=== PATIENT | male | born 1965 | race Caucasian/White ===

== ENCOUNTER 2020-04-20 08:30 | Outpatient (RCR) | payer OTHER, SELFPAY ==
--- NOTE | 2020-03-28 10:24 | PTOPEVAL ---
PHYSICAL THERAPY EVALUATION Thank you for referring Everardo Sumner to [facility].? The patient is scheduled to be seen for therapy?2x/week for 4 weeks. Please review, sign, date and return this plan of care GENARO. I agree with and certify that the following plan of care is medically necessary. 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 The patient has had increased back pain since injury and saw MD recently. The MD ordered PT, insurance will not allow for MRI at this time but had one in 2018. Subjective Information The patient reports increased Query Text:As Reported By Patient/ pain at low back and right leg Family numbness most of time. Patient also has occasional left leg numbness. Household activities and yardwork increase symptoms. Patient has had injections but got no relief. Patient's goal is to have less pain with daily activities. Diagnostic Tests X-Rays For This Problem Yes: in 2018 MRI For This Problem Yes: in 2018; showed pinched nerve/herniated disc Other Tests For This Problem No Previous Treatments Previous Treatments For This Problem epidurals, medication Prior Level of Function Activity Level (Last 3 Months) Occupation not working Hand Dominance Ambidextrous Activity of Daily Living Ability Independent Indoor/Home Mobility Independent Community Mobility Independent Stairs Ability Independent Functional Cognition (Planning, Shopping Independent , Taking Medications) Cooking Yes Cleaning Yes Laundry Yes Shopping Yes Driving Yes Medications Home Meds (Include: OTC, RX, Vitamins, atorvastatin, fluticasone, Herbals, Dose, Route,and Frequency) hydrocodone
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
--- NOTE | 2020-04-20 09:21 | PCPTNOTE ---
Admitting Provider: Attending Provider: Ronit Dye, Patient:Everardo Sumner Date of :1965 Patient has not returned for any further treatments since 04/18/2020, therefore (he/she) will be discharged at this time. Patient?s initial visit was on 03/28/2020 08:30 and (he/she) had a total of visits. The goals have been (met, not met, partially met). Thank you for referring this patient to [facility]. Please review, sign, date and return this discharge summary GENARO. I have been updated about the patient's current status and I agree with discharge from the above service at this time. Referring Physician Date
--- NOTE | 2020-04-20 09:22 | PTOPEVAL ---
Thank you for referring Everardo Sumner to [facility].? The patient has been seen for therapy? 6 visits with minimal improvement-see details below. Thank you for your referral. Please review, sign, date and return this plan of care GENARO. I agree with and certify that the following plan of care is medically necessary. Referring Physician Date Attending Provider: Ronit Dye, MD *PT Outpatient D/C Start: 03/28/20 08:05 Freq: Status: Active Protocol: Document 04/20/20 08:39 MLV (Rec: 04/20/20 09:13 MLV [id number]) Therapy Assessment Status Assessment Status Discharge Pain Assessment Timing of Pain Assessment Timing of Pain Assessment Pre-Treatment Pain Scale Pain Scale Used Numeric (1 - 10) Self Report Pain Assessment Lower Back Reported Pain Level 7 Pain Description Aching,Pressure Pain Frequency Chronic Pain Aggravating Factors Exercise/Activity,Prolonged Position,Sitting,Walking Pain Score Pain Score 7: Self Report Interventions Used Interventions Used By Clinicians Electrical Stimulation, Exercise,Heat Pain Relief Interventions Used By Exercise,Heat,Inactivity/Rest Patient Lower Extremity Range of Motion General Lower Extremity Range of Motion Gross Lower Extremity Range of Motion sangita. hip rotation 35 degrees Comments with stiffness Lower Extremity Muscle Strength Testing General Lower Extremity Strength Reason Not Measured WFL/Left,WFL/Right Gross Lower Extremity Strength more consistent response with muscle testing and less signs of pain Muscle Length Testing Muscle Length Testing Piriformis w/Hip Flexion <90 Degrees (R) Moderate Tightness,(L) Moderate Tightness Left Hamstring Length 68 Query Text:(90 - 90 Position) Right Hamstring Length 68 Query Text:(90 - 90 Position) Gastrocnemius Length (R) Mild Tightness,(L) Mild Tightness Muscle Length Testing Comments reports more tightness feeling at right hamstring Palpation Assessment Palpation Palpation chronic tightness remains at lumbar erectors and hip rotators *soreness at sangita. SI joints with deeper palpation Gait Assessment Additional Ambulation Comments continued guarding at initiation of gait with increased hip flexed posture PT Clinical Summary Mr. Sumner is a 54 y/o male seen for physical therap
== END 2020-04-20 14:30 | disposition home or self-care (01) ==
LOC: ANHPT 08:30
PROVIDERS: PCP Family Medicine; Visit Provider Family Medicine
DX: M51.17 Intervertebral disc disorders with radiculopathy, lumbosacral region (principal)
CPT/HCPCS: 97014; 97110; 97162; G0283

== ENCOUNTER 2020-12-16 08:00 | Outpatient (RCR) | payer OTHER, SELFPAY ==
--- NOTE | 2020-11-18 09:37 | PTOPEVAL ---
PHYSICAL THERAPY EVALUATION Thank you for referring Everardo Sumner to [facility].? The patient is scheduled to be seen for therapy?1 x/week for 4 weeks (limited frequency per pt request due to costs). Please review, sign, date and return this plan of care GENARO. * Note: patient did not call for an evaluation until 2 weeks ago due to pain tolerance-per pt I agree with and certify that the following plan of care is medically necessary. Referring Physician Date Attending Provider: Jonathan Broussard *PT Outpatient Evaluation Start: 11/18/20 08:18 Freq: Status: Active Protocol: Document 11/18/20 08:18 MLV (Rec: 11/18/20 09:10 MLV [id number]) Therapy Assessment Status Assessment Status Assessment Status Evaluation Evaluation Information Problem Diagnosis low back pain/sangita. LE radiculopathy; surgical fusion Onset surgery 09/16/20 Cause degenerative in nature; not an injury Additional Evaluation Detail The patient has a long hx with back problems and insurance fought getting an MRI for a long time. The patient tried therapy without success prior to surgery. The patient had surgery on 09/16/20 for lumbar fusion. Since the surgery, the patient reports continued numbness at sangita. LE's with the right leg worse, low back pain which affect all regular daily activities. The patient hasn't worked for a couple years due to his back issues. The patient has help from his neighbors for housework, cooking, driving longer distances. The patient is walking daily for about 1 block with pain limiting further distance. Diagnostic Tests MRI For This Problem Yes: DDD, pinched sciatic nerve Previous Treatments Previous Treatments For This Problem PT prior to surgery w/o relief Pain Assessment Timing of Pain Assessment Timing of Pain Assessment Assessment Pain Scale Pain Scale Used Numeric (1 - 10) Self Report Pain Assessment Bilateral Leg(s) Reported Pain Level 7 Pain Description Numbness,Tingling Pain Frequency Acute,Chronic,Continuous Greatest Pain Intensity 8 Pain Aggravati
--- NOTE | 2020-12-02 11:11 | PCPTNOTE ---
Patient did not show up for scheduled appointment this date. Called patient, no answer, left a message with information regarding next appt time.
--- NOTE | 2020-12-16 16:31 | PTOPEVAL ---
PHYSICAL THERAPY DISCHARGE SUMMARY Thank you for referring Everardo Sumner to [facility].? Jordan has completed 4 visits to therapy for the dx of lumbar surgery/pain. The patient has partially met his goals and progress for skilled needs have peaked. DC PT. Please review, sign, date and return this plan of care GENARO. I agree with and certify the following plan of care. Referring Physician Date Attending Provider: Jonathan Broussard *PT Outpatient Discharge Start: 11/18/20 08:18 Freq: Status: Active Protocol: Document 12/16/20 08:09 MLV (Rec: 12/16/20 08:53 [facility] [id number]) Therapy Assessment Status Assessment Status Assessment Status Discharge Evaluation Information Problem Diagnosis low back pain/sangita. LE radiculopathy; surgical fusion Onset surgery 09/16/20 Cause degenerative in nature; not an injury Additional Evaluation Detail Patient reports soreness today due to stepping in a hole in his yard last week, causing increased soreness, especially the first 3 days. The patient reports his pain has not changed since surgery or therapy intervention. The patient sees the Md in August of 2021 and was told the surgery takes time to heal. The patient feels the exercises currently given work for him but sometimes does not do, due to pain level. The patient reports taking pain meds on schedule which allows him to do a little each day. Pain Assessment Timing of Pain Assessment Timing of Pain Assessment Assessment Pain Scale Pain Scale Used Numeric (1 - 10) Self Report Pain Assessment Bilateral Leg(s) Reported Pain Level 7 Pain Description Aching,Sharp Pain Frequency Acute,Chronic Lower Back Reported Pain Level 8 Pain Description Aching,Pinching,Soreness Pain Frequency Acute,Chronic Pain Score Pain Score 7,8: Self Report Interventions Used Interventions Used By Clinicians Education,Exercise Pain Relief Interventions Used By Exercise,Ice,Medication Patient Cervical and Lumbar ROM Lumbar ROM Lumbar Flexion Active [place] Query Text:Hands to: Lumbar Extension (0-40) 0 Q
== END 2020-12-19 09:26 | disposition home or self-care (01) ==
LOC: ANHPT 08:00
PROVIDERS: PCP Family Medicine
DX: Z98.1 Arthrodesis status (principal)
CPT/HCPCS: 97014; 97110; 97140; 97162; 97530; G0283

== ENCOUNTER 2021-10-01 09:55 | Emergency (ER) | payer OTHER, SELFPAY ==
--- NOTE | ~2021-10-01 | XR_ITS ---
EXAMINATION: XR wrist RT min 3V EXAM DATE: 10/01/2021 11:17 INDICATION: fall, wrist/snuff box tenderness . TECHNIQUE: Right wrist frontal, frontal with ulnar deviation, oblique and lateral projections obtain ed and reviewed. There is no prior study for comparison. FINDINGS: Right wrist scapholunate joint space is maintained. Mild radiocarpal joint primary osteoar thritis. There are no acute fractures or dislocations identified. There is no subcutaneous gas. The soft tissue is unremarkable. There are no radiopaque foreign bodies. There is an old 5th metacarpa l fracture. IMPRESSION: No acute osseous findings. Reviewed, dictated and finalized at location A. IMPRESSION: No acute osseous findings.
--- NOTE | ~2021-10-01 | CT_ITS ---
EXAMINATION: CT lumbar spine wo [facility] EXAM DATE: 10/01/2021 11:29 INDICATION: Fall, back surg, midline pain. TECHNIQUE: Spiral CT lumbar spine was performed without contrast. Axial, coronal and sagittal images of the lumbar spine were reviewed. The dose-length product (DLP) for this examination was 1031.24 mGy -cm. The exposure was tailored according to patient size (auto mA exposure control), and iterative r econstruction (ASIR) was used as additional dose reduction technique. There is no prior study for co mparison. FINDINGS: There are no acute fractures identified. Posterior and interbody fusion L5-S1, with about 9 mm deni listhesis. There is some interbody device subsidence into the L5 endplate. There is no solid bone geena dging identified at the disc space. This subtle lucency surrounding the sacral pedicular screws, prob ably some amount of loosening. No hardware fracture. There is mild lumbar dextroscoliosis. Mild to mo derate L4-5 disc disease, mild at the levels above. Mild to moderate mid and lower lumbar facet arthr opathy. Mild sigmoid diverticulosis. Paraspinal soft tissue is unremarkable. IMPRESSION: 1. No acute lumbar findings. 2. L5-S1 fusion with evidence of S1 pedicular screw loosening and some interbody subsidence into L5, no solid bone bridging at this point. 3. Mild dextroscoliosis. Reviewed, dictated and finalized at location A. IMPRESSION: 1. No acute lumbar findings. 2. L5-S1 fusion with evidence of S1 pedicular screw loosening and some interbo dy subsidence into L5, no solid bone bridging at this point. 3. Mild dextroscoliosis.
[2021-10-01 10:04] VITALS: BP 185/92; PULSE 104; RESP 18; TEMP 36.6; O2SAT 100
--- NOTE | 2021-10-01 10:50 | ED.FALL ---
HPI - Fall General Chief Complaint: Fall <Jia Urbina PA-C - Last Filed: 10/01/21 19:11> Stated Complaint: Fall, Back Pain <TULIO Herrera Last Filed: 10/01/21 19:11> Time Seen by Provider: 10/01/21 10:07 <TULIO Herrera Last Filed: 10/01/21 19:11> Source: patient <TULIO Herrera Last Filed: 10/01/21 19:11> Mode of arrival: ambulatory <TULIO Herrera Last Filed: 10/01/21 19:11> Limitations: no limitations <TULIO Herrera Last Filed: 10/01/21 19:11> History of Present Illness HPI Narrative: Patient is a 56-year-old male who presents the ED with report of low back pain status post fall. Patient reports a history of lumbar spinal fusion surgery last year. He saw his spinal surgeon in July of this year and states he was told one of the screws came loose and he would need repeat surgery. Patient does not want repeat surgery. He does report that he has chronic nerve damage and sciatic pain in his right lower extremity from the surgery. He uses a cane for assistance with ambulation. Today he was walking through his house around 9 am when he developed experienced stabbing right-sided sciatic pain. He states the pain was severe and caused him to fall onto his R side. No head injury or LOC. No prodromal symptoms, CP, SOB, JENSEN, vision changes. He complains of pain to his right wrist and diffuse lower back. Denies any incontinence of bowel or bladder, weakness in his legs, saddle anesthesia, urinary retention, abdominal pain, nausea, vomiting, R hip pain. <TULIO Herrera Last Filed: 10/01/21 19:11> Related Data Allergies/Adverse Reactions: Allergies Allergy/AdvReac Type Severity Reaction Status Date / Time ampicillin AdvReac Unknown Verified 10/01/21 11:08 Penicillins AdvReac Unknown Verified 10/01/21 11:08 <Jia Urbina PA-C - Last Filed: 10/01/21 19:11> Review of Systems Review of Systems: CONSTITUTIONAL: Denies fever, chills. EYES: Denies visual changes. CARDIOVASCULAR: Denies chest pain. RESPIRATORY: Denies dyspnea. GASTROINTESTINAL: Denies abdominal pain, nausea, vomiting, diarrhea, incontinence. GENITOURINARY: Denies incontinence, retention, dysuria or hematuria. MUSCULOSKELETAL: Reports lower back pain and R wrist pain. Denies R hip pain. NEUROLOGIC: Reports numbness in RLE. Denies headache, numbness, or weakness. <Jai Urbina PA-C - Last Filed: 10/01/21 19:11> All systems reviewed & are unremarkable except as noted in HPI and below <Jia Urbina PA-C - Last Filed: 10/01/21 19:11> PMFSH Past Medical History Medical History: Medical History (Updated 10/01/21 @ 12:13 by Jia Urbina PA-C) Chronic lumbar pain Hypertension <Jia Urbina PA-C - Last Filed: 10/01/21 19:11> Surgical History Surgical History: Surgical History (Updated 10/01/21 @ 12:14 by Jia Urbina PA-C) History of lumbar spinal fusion <Jia Urbina PA-C - Last Filed: 10/01/21 19:11> Social History Social History: Social History (Updated 10/01/21 @ 12:14 by Jia Urbina PA-C) Smoking status: Current every day smoker <Jia Urbina PA-C - Last Filed: 10/01/21 19:11> Exam Narrative: GENERAL: Well appearing, well-nourished, non-toxic, in no acute distress. HEAD: Normocephalic, atraumatic. EYES: PERRL/EOMI, conjunctivae clear bilaterally. NECK: Supple. No adenopathy, no masses. No midline spinal tenderness. RESPIRATORY: Airway patent, respirations nonlabored. Clear to auscultation bilaterally, no rales, rhonchi, wheezing. CARDIOVASCULAR: Regular rate and rhythm without murmurs, rubs, or gallops. Peripheral pulses 2+ and equal bilaterally. MUSCULOSKELETAL: Moves all extremities. Strength/ROM intact per baseline without gross deformities. Tenderness to palpation of midline lumbar spine around sacral area and bilateral paraspinous muscles. No tenderness to palpation of cervical or midline spine. Minimal ten
[2021-10-01] MEDS: KETOROLAC (*BKC) 60 MG/2 ML VIAL IM (11:08)
[2021-10-01] MEDS: Please add drug allergy info to patient profile. 1 EACH XX (11:08)
[2021-10-01] MEDS: HYDROcodone/acetaminophen (*CRX) 5-325 MG TABLET 1 TAB PO (12:57)
[2021-10-01 13:31] VITALS: BP 167/86; PULSE 84; RESP 16; O2SAT 97
== END 2021-10-01 13:51 | disposition home or self-care (01) ==
PROVIDERS: Emergency Provider Emergency Medicine
DX: S39.012A Strain of muscle, fascia and tendon of lower back, initial encounter (principal); Z98.1 Arthrodesis status; I10 Essential (primary) hypertension; W19.XXXA Unspecified fall, initial encounter
CPT/HCPCS: 72131; 73110; 96372; 99284; A9270; J1885

== ENCOUNTER 2022-05-22 10:09 | Outpatient (CLI) | payer OTHER, SELFPAY ==
--- NOTE | ~2022-05-22 | XR_ITS ---
XR cervical spine 4-5V DATE: 05/22/2022 10:40 INDICATION: Neck pain. No known injury. TECHNIQUE: AP, open-mouth, lateral, swimmer views COMPARISON: None FINDINGS: There is straightening of the cervical spine which may be due to muscle spasm. There is mil d dextroscoliosis of the cervical spine as well. C1 and C2 are normally aligned and the odontoid process is intact. No fracture or dislocation or lock ed facet or prevertebral soft tissue swelling. Moderately prominent loss of disc space height at C5-6 and C6-7 consistent with degenerative disc dis ease. There is uncovertebral joint spurring at C5-6 and C6-7. IMPRESSION: Moderately prominent degenerative disc disease and uncovertebral joint spurring at C5-6 a nd C6-7 Straightening of cervical spine and mild dextro scoliosis Reviewed, dictated and finalized at location B. SSRS DEVELOPER IMPRESSION: Moderately prominent degenerative disc disease and uncovertebral leah int spurring at C5-6 and C6-7 Straightening of cervical spine and mild dextro scoliosis
--- NOTE | ~2022-05-22 | XR_ITS ---
XR hip RT min 2V 05/22/2022 10:40 Indication: Right hip pain Procedure: 2 views right hip Comparison: No prior studies for comparison. Findings: No fracture, subluxation or dislocation. No significant soft tissue abnormality. No foreign bodies. There is anatomic alignment. Impression: 1: No significant bone or joint abnormality. Reviewed, dictated and finalized at location A. INSPECTOR Impression: 1: No significant bone or joint abnormality.
--- NOTE | ~2022-05-22 | XR_ITS ---
EXAMINATION: XR chest 2V 05/22/2022 10:40 INDICATION: Smoker. History of COPD. PROCEDURE: 2 view chest COMPARISON: No prior studies for comparison. FINDINGS: The lungs are clear. The cardiomediastinal silhouette is within normal limits. There are no pleural effusions. There is no pneumothorax suspected. The lungs are hyperinflated which is cons istent with, but not diagnostic of chronic obstructive pulmonary disease. IMPRESSION: 1: NO ACUTE CARDIOPULMONARY DISEASE. Reviewed, dictated and finalized at location A. CAL RECORDS DIRECTOR
[2022-05-22 11:35] LABS: Hematocrit 43.2 % (42.0-52.0); Hemoglobin 14.4 g/dL (14.0-18.0); Mean Corpuscular HGB Conc 33.3 g/dl (32-36); Mean Corpuscular Hemoglobin 32.5 pg (26-34); Mean Corpuscular Volume 97.5 fl (80-100); Platelet Count Result 392 k/mm3 (150-375); Red Blood Count 4.43 M/mm3 (4.6-6.20); Red Cell Distribution Width 13.2 % (11.5-14.5); White Blood Count 11.9 K/mm3 (4.5-10.0)
[2022-05-22 11:51] LABS: Alanine Aminotransferase 24 U/L (6-50); Albumin Level 4.8 g/dL (3.5-5.1); Alkaline Phosphatase 104 U/L (38-126); Anion Gap 14 mmol/L (8-16); Aspartate Amino Transferase 29 U/L (17-59); Bilirubin,Total 0.9 mg/dL (0.2-1.3); Blood Urea Nitrogen 22 mg/dL (9-20); Calcium 9.4 mg/dL (8.4-10.2); Carbon Dioxide 23 mmol/L (22-30); Chloride 102 mmol/L (98-107); Cholesterol 281 mg/dL (0-200); Estimated Glomerular Filt Rate > 60; Glucose 101 mg/dL (65-110); HDL Direct 60 mg/dL; Potassium 4.4 mmol/L (3.4-5.0); Sodium 139 mmol/L (137-145); Triglycerides 507 mg/dL (<150)
[2022-05-22 11:55] LABS: Rheumatoid Factor < 8.6 IU/ML (<12)
[2022-05-22 12:01] LABS: Hemoglobin A1C 5.3 % (<5.7)
[2022-05-22 12:02] LABS: LDL Cholesterol Direct 95 mg/dL
[2022-05-22 12:07] LABS: Creatinine Urine 173.3 mg/dL; MALB Creatinine Ratio 10.6 mg/g (0-30); Microalbumin Urine Random 18.4 mg/L (0-16.7)
[2022-05-22 12:20] LABS: Vitamin D 25 Hydroxy 18.1 ng/mL
[2022-05-22 12:22] LABS: Prostate Specific Antigen 0.3 ng/mL (< OR = 4.0)
[2022-05-22 12:36] LABS: Hepatitis B Surface Antigen Negative (Negative); Iron 150 ug/dL (49-181); Percent Iron Saturation 36 % (20-50)
[2022-05-22 12:39] LABS: Erythrocyte Sedimentation Rate 19 mm/hr (0-20)
[2022-05-22 12:42] LABS: Free T4 Free Thyroxine 0.96 ng/mL (0.78-2.19); HAV RESULT Negative (Negative); Hepatitis B Core IgM Result Negative (Negative)
[2022-05-22 12:54] LABS: Hepatitis C Virus Antibody Negative (Negative)
[2022-05-22 12:57] LABS: Folic Acid 9.5 ng/mL (2.76->20)
== END 2022-05-22 10:10 | disposition home or self-care (01) ==
LOC: ANHIMG 10:17
PROVIDERS: PCP Emergency Medicine; Visit Provider Emergency Medicine
DX: M25.551 Pain in right hip (principal); M50.322 Other cervical disc degeneration at C5-C6 level; M53.82 Other specified dorsopathies, cervical region; M41.82 Other forms of scoliosis, cervical region
CPT/HCPCS: 36415; 71046; 72050; 73502; 80053; 80061; 80074; 82043; 82306; 82607; 82746; 83036; 83540; 83550; 84153; 84439; 84443; 85027; 85652; 86038; 86430; 87086

== ENCOUNTER 2022-06-06 10:18 | Outpatient (CLI) | payer OTHER, SELFPAY ==
--- NOTE | ~2022-06-06 | DEXA_ITS ---
Bone Density Report Name: SUN CHANG Age: 57 Sex: Male Ethnicity: White Date of : 1965 Indication: height loss; prior fracture; Referring Provider: HIRAM ORTIZ Study: Bone densitometry was performed. Exam Date: June 06, 2022 Accession number: [id number] Bone Density: Region BMD T-score Z-score Classification AP Spine(L1, L2, L3) 0.797 -2.5 -2.0 Osteoporosis Femoral Neck (Left) 0.566 -2.7 -1.8 Osteoporosis Total Hip (Left) 0.763 -1.8 -1.4 Osteopenia Femoral Neck (Right) 0.543 -2.8 -2.0 Osteoporosis Total Hip (Right) 0.723 -2.1 -1.7 Osteopenia Total Hip Mean 0.743 -2.0 -1.6 Osteopenia World Health Organization criteria for BMD impression classify patients as: Normal (T-score at or above -1.0), Osteopenia (T-score between -1.0 and -2.5), or Osteoporosis (T-score at or below -2.5). 10-year Fracture Risk: FRAX not reported because: Some T-score for Spine Total or Hip Total or Femoral Neck at or below -2.5 Clinical Information Provided by Patient: Has had a low trauma fracture Smokes Has 3 or more alcoholic drinks per day Patient maximum height was 72 No regular weight bearing exercise Drinks caffeinated beverages Impression: The patient has established osteoporosis, based on the Right Femoral Neck T-score and the existence of a prior fracture. The patient has risk factors, including: smoking, excessive alcohol use, previous fracture. Discussion: HIGH RISK OF FRACTURE. BONE DENSITY IS UNDESIRABLY LOW AT ONE OR MORE SKELETAL SITES, CONSISTENT WITH OSTEOPOROSIS. This patient's lowest T-score, in a patient who has previously fractured, meets the World Health Organization's (WHO) criteria for severe osteoporosis. In untreated patients, the risk of osteoporotic fracture increases approximately two-fold for each 1.0 SD decrease in T-score. Low bone density is not the only risk factor for fracture; also consider factors such as patient's age, frailty or poor health, risk of falling, risk of injury, previous osteoporotic fracture, family history of osteoporosis, cigarette smoking, low body weight, etc. Not everyone with low bone mineral density has osteoporosis; osteomalacia and other metabolic bone disorders should also be considered. Patients who have osteoporosis should be evaluated for specific diseases and conditions (secondary causes) that may cause or contribute to bone loss. The National Osteoporosis Foundation (NOF) recommends pharmacologic intervention for men with BMD at this level (a T-score of -2.5 or below). The patient should follow a healthful lifestyle (good nutrition with adequate calcium and vitamin D, and appropriate weight-bearing exercise). Follow-Up: Consider repeating this study in 2 years to reassess this patient's status, or sooner if there is some new clinical indication.
== END 2022-06-06 10:19 | disposition home or self-care (01) ==
LOC: ANHIMG 10:20
PROVIDERS: PCP Emergency Medicine; Visit Provider Emergency Medicine
DX: G25.2 Other specified forms of tremor (principal); M81.0 Age-related osteoporosis without current pathological fracture; M85.852 Other specified disorders of bone density and structure, left thigh; M85.851 Other specified disorders of bone density and structure, right thigh
CPT/HCPCS: 77080

== ENCOUNTER 2023-03-04 09:50 | Outpatient (CLI) | payer MEDICARE, MEDICAID, SELFPAY ==
[2023-03-04 11:54] LABS: Hematocrit 48.8 % (42.0-52.0); Hemoglobin 16.5 g/dL (14.0-18.0); Mean Corpuscular HGB Conc 33.8 g/dl (32-36); Mean Corpuscular Hemoglobin 33.3 pg (26-34); Mean Corpuscular Volume 98.6 fl (80-100); Mean Platelet Volume 9.3 fl (7.4-10.4); Platelet Count Result 415 k/mm3 (150-375); Red Blood Count 4.95 M/mm3 (4.6-6.20); Red Cell Distribution Width 13.3 % (11.5-14.5); White Blood Count 14.1 K/mm3 (4.5-10.0)
[2023-03-04 12:01] LABS: Appearance Urine Clear (Clear); Bilirubin Urine Negative (Negative); Blood Urine Negative (Negative); Color Urine Dark Yellow (Yellow); Glucose Urine UA Negative (Negative); Ketones Urine Negative (Negative); Leukocyte Esterase Ur Negative LEU/UL (NEGATIVE); Nitrate Urine Negative (Negative); Protein Urine Negative (Negative); Specific Grav Ur 1.022 (1.001-1.035); Urobilinogen Urine 0.2 mg/dL (<2.0)
[2023-03-04 12:08] LABS: Add Urine Microscopic? NO
[2023-03-04 12:13] LABS: Alanine Aminotransferase 107 U/L (6-50); Albumin Level 4.9 g/dL (3.5-5.1); Alkaline Phosphatase 81 U/L (38-126); Anion Gap 11 mmol/L (8-16); Aspartate Amino Transferase 96 U/L (17-59); Bilirubin,Total 0.9 mg/dL (0.2-1.3); Blood Urea Nitrogen 23 mg/dL (9-20); Calcium 9.6 mg/dL (8.4-10.2); Carbon Dioxide 28 mmol/L (22-30); Chloride 95 mmol/L (98-107); Cholesterol 316 mg/dL (0-200); Estimated Glomerular Filt Rate > 60; Glucose 93 mg/dL (65-110); HDL Direct 44 mg/dL; Potassium 4.5 mmol/L (3.4-5.0); Sodium 134 mmol/L (137-145); Triglycerides 464 mg/dL (<150)
[2023-03-04 12:26] LABS: LDL Cholesterol Direct 182 mg/dL
[2023-03-04 12:34] LABS: Free T4 Free Thyroxine 1.41 ng/mL (0.78-2.19); Vitamin D 25 Hydroxy 43.3 ng/mL
[2023-03-04 12:44] LABS: Prostate Specific Antigen 0.4 ng/mL (< OR = 4.0)
[2023-03-04 13:54] LABS: Hemoglobin A1C 5.4 % (<5.7)
== END 2023-03-04 09:51 | disposition home or self-care (01) ==
PROVIDERS: PCP Emergency Medicine; Visit Provider Emergency Medicine
DX: Z12.5 Encounter for screening for malignant neoplasm of prostate (principal); Z00.00 Encounter for general adult medical examination without abnormal findings; R73.9 Hyperglycemia, unspecified; F41.9 Anxiety disorder, unspecified; M54.50 Low back pain, unspecified; F32.9 Major depressive disorder, single episode, unspecified; I10 Essential (primary) hypertension; E78.5 Hyperlipidemia, unspecified; E55.9 Vitamin D deficiency, unspecified; D72.829 Elevated white blood cell count, unspecified; D75.839 Thrombocytosis, unspecified
CPT/HCPCS: 36415; 80053; 80061; 81003; 82306; 83036; 84153; 84439; 84443; 85027; G0103

== ENCOUNTER 2023-03-23 10:40 | Emergency (ER) | payer MEDICARE, MEDICAID, SELFPAY ==
--- NOTE | ~2023-03-23 | CT_ITS ---
EXAMINATION: CT abdomen pelvis w con INDICATION: Abdominal pain, leukocytosis TECHNIQUE: Computed tomographic images of the abdomen and pelvis were obtained after the administrati on of 100 cc of Omnipaque 350 intravenous contrast. The dose-length product (DLP) was 708.94 mGy-cm. Automated exposure control and iterative reconstruction technique were employed. COMPARISON: 08/17/2016 FINDINGS: Minimal dependent atelectasis is present in the lung bases. The heart size is normal. The l iver is diffusely low in attenuation when compared with the spleen, consistent with hepatic steatosis . Punctate calcifications in an otherwise normal spleen likely represent healed granulomatous disease . The pancreas and adrenal glands are normal. Stones are present in the nondistended gallbladder. No pathologically enlarged abdominal or pelvic lymph nodes are identified. There are no dilated loops of bowel. There is a 2.0 cm intramural abscess of the proximal sigmoid colon with a small adjacent brad sigmoid abscess. There are changes of anterior and posterior fusion procedure at L5-S1. IMPRESSION: 1. 2.0 cm intramural abscess of the proximal sigmoid colon with small adjacent perforation and perisi gmoid abscess. Reviewed, dictated and finalized at location F. IMPRESSION: 1. 2.0 cm intramural abscess of the proximal sigmoid colon with small adjacent perforation and perisigmoid abscess.
[2023-03-23 10:50] VITALS: BP 108/81; PULSE 97; RESP 18; TEMP 36.6; O2SAT 100
[2023-03-23 11:06] LABS: Basophils Absolute Auto 0.1 K/mm3 (0.0-0.1); Basophils Percent Auto 0.7 % (0.2-1.2); Eosinophils Absolute Auto 0.3 K/mm3 (0-0.3); Eosinophils Percent Auto 1.6 % (0-4.4); Hematocrit 46.3 % (42.0-52.0); Hemoglobin 15.7 g/dL (14.0-18.0); Immature Granulocyte Absolute 0.13 K/mm3 (0.00-0.031); Immature Granulocyte Percent A 0.7 % (0-0.5); Lymphocytes Absolute Auto 1.86 K/mm3 (0.9-3.2); Lymphocytes Percent Auto 10.6 % (18.3-44.2); Mean Corpuscular HGB Conc 33.9 g/dl (32-36); Mean Corpuscular Hemoglobin 33.1 pg (26-34); Mean Corpuscular Volume 97.7 fl (80-100); Mean Platelet Volume 8.9 fl (7.4-10.4); Monocytes Absolute Auto 1.1 K/mm3 (0.1-0.6); Neutrophils Percent Auto 80.4 % (45.5-73.1); Platelet Count Result 431 k/mm3 (150-375); Red Blood Count 4.74 M/mm3 (4.6-6.20); Red Cell Distribution Width 12.9 % (11.5-14.5); White Blood Count 17.5 K/mm3 (4.5-10.0)
--- NOTE | 2023-03-23 11:20 | ED.ABDPAIN ---
HPI - Abdominal Pain General Chief Complaint: Abdominal Pain Stated Complaint: stomach problems Time Seen by Provider: 03/23/23 10:50 Source: patient Mode of arrival: ambulatory Limitations: no limitations History of Present Illness HPI narrative: This is a 57 year old male that presents to the ER for abdominal pain present over the last 5 days. Report intermittent lower abdominal pain. Worse with bowel movements. Reports vomiting and diarrhea. Also reports some dysuria. Denies fever or hematochezia. Related Data Allergies Allergy/AdvReac Type Severity Reaction Status Date / Time ampicillin AdvReac Unknown Verified 03/23/23 11:00 Penicillins AdvReac Unknown Verified 03/23/23 11:00 Review of Systems Review of Systems: CONSTITUTIONAL: Denies fever GASTROINTESTINAL: Reports abdominal pain, nausea, vomiting, and diarrhea. GENITOURINARY: Reports dysuria. Denies hematuria. All systems reviewed & are unremarkable except as noted in HPI and below PMFSH Past Medical History Medical History (Updated 03/23/23 @ 13:24 by Lauren Yu PA-C) Chronic lumbar pain Hypertension Surgical History Surgical History (Updated 10/01/21 @ 12:14 by Jia Tipton PA-C) History of lumbar spinal fusion Social History Social History (Updated 03/23/23 @ 11:23 by Lauren Yu PA-C) Smoking status: Current every day smoker Substance use: current Substance use type: marijuana Exam Narrative: GENERAL: Well-appearing, well-nourished, and in no acute distress. HEAD: Normocephalic, atraumatic. EYES: EOMI. ENT: Mucous membranes moist. CHEST: Clear to auscultation. No respiratory distress. No wheezes rales or rhonchi HEART: Regular rate and rhythm. No murmur heard. Normal peripheral pulses. ABDOMEN: Soft, nondistended, normal active bowel sounds. Tender to palpation to the left lower quadrant, without guarding EXTREMITIES: Normal range of motion. No edema. SKIN: Warm, dry, no rash. NEURO: No focal deficits. Alert and oriented x3. PSYCH: Normal mood and affect Course Course Emergency Course: Patient was updated and work-up and my plan of care. Patient reports he cannot stay in the hospital at this time. He has to figure out care for his dog. He does promise he will come back. He will be signing out AMA. He was given the risks of doing so Vital Signs Vital signs: Vital Signs Temperature 98 F 03/23/23 10:50 Pulse Rate 97 03/23/23 10:50 Respiratory Rate 18 03/23/23 10:50 Blood Pressure 108/81 03/23/23 10:50 Pulse Oximetry 100 03/23/23 10:50 Oxygen Delivery Room Air 03/23/23 10:50 Temperature 98 F 03/23/23 10:50 Pulse Rate 97 03/23/23 10:50 Respiratory Rate 18 03/23/23 10:50 Blood Pressure 108/81 03/23/23 10:50 Pulse Oximetry 100 03/23/23 10:50 Oxygen Delivery Room Air 03/23/23 10:50 MDM - Abdominal Pain MDM Narrative Medical decision making narrative: Patient presents to the emergency department for abdominal pain present over the last 5 days. He is afebrile and nontoxic-appearing. CBC with leukocytosis to 17.5. Metabolic panel with mild transaminitis. Lipase is normal. CT scan of the abdomen and pelvis shows a 2 cm intramural abscess of the proximal sigmoid colon with small adjacent perforation and perisigmoid abscess. Patient was updated and work-up and my plan of care (for patient to be admitted for further management). Patient reports he cannot stay in the hospital at this time. He has to figure out care for his dog. He does promise he will come back. He will be signing out AMA. He was given the risks of doing so. I did send antibiotics to the pharmacy in case he does not return Differential Diagnosis Differential diagnosis: Likely abdominal pain, calculus of kidney, constipation and diverticulitis Medical Records Attestation: I reviewed the patient's medical records. Medical records narrative: Reviewed recent outpatient bloodwork Lab [facility]
[2023-03-23 11:28] LABS: Alanine Aminotransferase 69 U/L (6-50); Albumin Level 4.7 g/dL (3.5-5.1); Alkaline Phosphatase 84 U/L (38-126); Anion Gap 10 mmol/L (8-16); Aspartate Amino Transferase 76 U/L (17-59); Bilirubin,Total 0.8 mg/dL (0.2-1.3); Blood Urea Nitrogen 17 mg/dL (9-20); Calcium 9.6 mg/dL (8.4-10.2); Carbon Dioxide 26 mmol/L (22-30); Chloride 100 mmol/L (98-107); Estimated CRCL calculation 63 ml/min; Estimated Glomerular Filt Rate 57; Glucose 141 mg/dL (65-110); Lipase 71 U/L (23-300); Potassium 3.9 mmol/L (3.4-5.0); Sodium 136 mmol/L (137-145)
[2023-03-23] MEDS: ONDANSETRON INJ 4 MG/2 ML VIAL IV PUSH (11:41)
[2023-03-23] MEDS: MORPHINE SULFATE (*CRX) 4 MG/ML INJ IV PUSH (11:41)
[2023-03-23 13:40] LABS: Appearance Urine Clear (Clear); Bilirubin Urine Negative (Negative); Blood Urine Negative (Negative); Color Urine Yellow (Yellow); Glucose Urine UA Negative (Negative); Ketones Urine Negative (Negative); Leukocyte Esterase Ur Negative LEU/UL (Negative); Nitrate Urine Negative (Negative); Protein Urine Negative (Negative); pH Urine 6.5 (5.0-9.0)
[2023-03-23 13:54] LABS: Lactic Acid Reflex 1.9 mmol/L (0.7-2.0)
[2023-03-23 14:01] LABS: Specific Grav Ur 1.059 (1.001-1.035)
[2023-03-23 14:02] LABS: Add Urine Microscopic? NO
[2023-03-23] MEDS: metroNIDAZOLE 500 MG/ISO 100ML 500 MG/100 ML BAG 100 MG IVPB (14:04)
== END 2023-03-23 15:13 | disposition left against medical advice (07) ==
PROVIDERS: Emergency Provider Physician Assistant; PCP Emergency Medicine
DX: K57.20 Diverticulitis of large intestine with perforation and abscess without bleeding (principal); I10 Essential (primary) hypertension; Z98.1 Arthrodesis status; F17.200 Nicotine dependence, unspecified, uncomplicated
CPT/HCPCS: 36415; 74177; 80053; 81003; 83605; 83690; 85025; 87040; 96365; 96367; 96375; 99284; J0696; J1836; J2270; J2405; Q9967

== ENCOUNTER 2023-03-23 17:43 | Inpatient (IN) | payer MEDICARE, MEDICAID, SELFPAY ==
[2023-03-23 17:48] VITALS: BP 100/63; PULSE 98; RESP 20; TEMP 36.7; O2SAT 97
--- NOTE | 2023-03-23 18:12 | ED.GENADULT ---
HPI - General Adult General Chief complaint: Abdominal Pain Stated complaint: diarrhea Time Seen by Provider: 03/23/23 18:00 Source: patient and old records reviewed Mode of arrival: ambulatory Limitations: no limitations History of Present Illness HPI narrative: Patient is a 57-year-old male who presents to the ED with report of diverticulitis. Patient was seen in the ED earlier today and diagnosed with sigmoid diverticulitis with perforation and multiple abscesses. Patient was given a dose of ceftriaxone and Flagyl and it was recommended he be admitted to the hospital. Case was discussed with general surgery. Patient had to take care of his dog and was unable to be admitted at that time. He did sign out AMA but returns now to be admitted. He reports having ongoing pain in his left lower abdomen. Denies nausea currently. Related Data Home Medications Medication Instructions Recorded Confirmed albuterol sulfate 90 mcg/actuation 2 puff inhalation Q4-6H PRN 03/23/23 03/23/23 aerosol inhaler Shortness Of Breath Or Wheezing fenofibrate 40 mg tablet 40 mg PO DAILY 03/23/23 03/23/23 lisinopril 10 mg tablet 20 mg PO DAILY 03/23/23 03/23/23 Allergies Allergy/AdvReac Type Severity Reaction Status Date / Time ampicillin AdvReac Unknown Verified 03/23/23 18:22 Penicillins AdvReac Unknown Verified 03/23/23 18:22 Review of Systems Review of Systems: CONSTITUTIONAL: Denies fever, chills, or sweats. CARDIOVASCULAR: Denies chest pain. RESPIRATORY: Denies dyspnea. GASTROINTESTINAL: See HPI. GENITOURINARY: Denies dysuria or hematuria. SKIN: Denies rash or itching. MUSCULOSKELETAL: Denies back pain, joint pain, or myalgia. All systems reviewed & are unremarkable except as noted in HPI and below PMFSH Past Medical History Medical History Chronic lumbar pain Hypertension Nicotine dependence, cigarettes, with other nicotine-induced disorders Surgical History Surgical History History of lumbar spinal fusion Family History Family History Other Unknown family medical history Social History Social History Smoking packs per day: 1.5 Smoking cigarettes per day: 30.0 Smoking status: Current every day smoker Alcohol intake: current Drinks per week: 70 Substance use: current Substance use type: marijuana Other substance usage details: 3 TIMES PER DAY Lack of Transportation: YES Lack of Food: Sometimes True Current Housing: I Have Housing Concerned About Future Housing: No Difficulty Paying Gas/Electric Bills: YES Difficulty Paying for Meds: No Currently Unemployed: No Education: Grade School Difficulty w/ Childcare or Family Care: No Spiritual care concerns: No Exam Narrative: GENERAL: Well appearing, well-nourished, non-toxic, in no acute distress. HEAD: Normocephalic, atraumatic. NECK: Supple. No adenopathy, no masses. RESPIRATORY: Airway patent, respirations nonlabored. Clear to auscultation bilaterally, no rales, rhonchi, wheezing. CARDIOVASCULAR: Regular rate and rhythm without murmurs, rubs, or gallops. Regular pulses 2+ and equal bilaterally. ABDOMINAL: Soft, focal tenderness in left lower abdomen, no significant rebound. Nondistended, no hepatosplenomegaly. Normoactive BS. MUSCULOSKELETAL: Moves all extremities. Strength/ROM intact without gross deformities. SKIN: Warm, dry, normal color. No rashes. NEURO: A&O X3. Speech clear. Cranial nerves II-XII grossly intact. Steady gait. No ataxic movements. PSYCHIATRIC: Appropriate mood and affect. Normal interaction. Course Vital Signs Vital signs: Vital Signs Temperature 98.1 F 03/23/23 17:48 Pulse Rate 98 03/23/23 17:48 Respiratory Rate 20 03/23/23 17:48 Blood Pressure 100/63 03/23/23 17:48 Pulse
[2023-03-23 18:20] VITALS: BP 91/62; PULSE 94; RESP 16; O2SAT 95
[2023-03-23] MEDS: SODIUM CHLORIDE 0.9% IV 1,000 ML 999 ML IV CONT ×2 (18:27→20:39)
[2023-03-23 19:16] VITALS: BP 99/70; PULSE 95; RESP 17; O2SAT 95
[2023-03-23 19:33] VITALS: BP 103/63; PULSE 92; RESP 20; O2SAT 95
[2023-03-23] MEDS: MEROPENEM 1 GM/NS 100 ML 1 GM/100 ML BAG IVPB (19:40)
[2023-03-23 19:48] LABS: Lactic Acid Reflex 1.3 mmol/L (0.7-2.0)
--- NOTE | 2023-03-23 20:32 | ADMGEN ---
This patient, Everardo Sumner, was admitted to Medical Room 348-01. Patient/family oriented to hospital policies and general routines including ID bracelet, bed and alarms, visiting hours, pain management, procedures, bathroom and other care routines, personal items, smoking policy, room service/diet, and visiting hours. Information on how to activate the Rapid Response Team has been discussed. Patient/Family are encouraged to report perceived risks to care and to ask questions if they do not understand what they are told or what they should do.
[2023-03-23 21:04] VITALS: BP 122/77; PULSE 89; RESP 16; TEMP 36.6; O2SAT 98
--- NOTE | 2023-03-23 21:08 | PM.IMHP ---
H&P: HPI History of Present Illness Date/Time: 03/23/23 21:08 Chief Complaint: patient came to the ER earlier today for evaluation of his abdominal pain for 5 days Narrative: 57 years old white male is complaining of abdominal pain off and on for the last 5 days which is slowly getting worse. As per the patient he is stubborn as a bulll and does not want to go to hospitals so he wanted to wait it out. The pain got worse today to the point that he had to come to the hospital. Workup was done which showed sigmoid diverticulitis with perforation and multiple abscesses on CT scan of the abdomen. Patient was offered admission, but he had to go home to take care of his dog. He came back and was started on IV antibiotics. General surgery was consulted who want to admit the patient for close monitoring and IV anti biotics. Patient was given IV pain meds in the ER with some relief in his symptoms. We are going to admit him to the floor for medical management and close monitoring. Review of Systems Review of Systems: patient denies any chest pain, palpitations, fever rigor chills, blurred vision or falls. All systems reviewed & are unremarkable except as noted in HPI and below PMFSH Past Medical History Medical History (Updated 03/23/23 @ 21:20 by Keanu Bang MD) Chronic lumbar pain Hypertension Nicotine dependence, cigarettes, with other nicotine-induced disorders Surgical History Surgical History History of lumbar spinal fusion Family History Family History Other Unknown family medical history Social History Social History Smoking packs per day: 1.5 Smoking cigarettes per day: 30.0 Smoking status: Current every day smoker Alcohol intake: current Drinks per week: 70 Substance use: current Substance use type: marijuana Other substance usage details: 3 TIMES PER DAY Lack of Transportation: YES Lack of Food: Sometimes True Current Housing: I Have Housing Concerned About Future Housing: No Difficulty Paying Gas/Electric Bills: YES Difficulty Paying for Meds: No Currently Unemployed: No Education: Grade School Difficulty w/ Childcare or Family Care: No Spiritual care concerns: No Meds Home Medications and Allergies Home Medications Medication Instructions Recorded Confirmed Type albuterol sulfate 90 mcg/actuation 2 puff inhalation Q4-6H PRN 03/23/23 03/23/23 History aerosol inhaler Shortness Of Breath Or Wheezing fenofibrate 40 mg tablet 40 mg PO DAILY 03/23/23 03/23/23 History lisinopril 10 mg tablet 20 mg PO DAILY 03/23/23 03/23/23 History Allergies Allergy/AdvReac Type Severity Reaction Status Date / Time ampicillin AdvReac Unknown Verified 03/23/23 18:22 Penicillins AdvReac Unknown Verified 03/23/23 18:22 Vital Signs Vital Signs - 24 hr 03/23/23 17:48 03/23/23 18:20 03/23/23 19:16 Temperature 36.7 C Pulse Rate 98 94 95 Respiratory Rate 20 16 17 Blood Pressure 100/63 91/62 L 99/70 L Pulse Oximetry 97 95 95 Oxygen Delivery Room Air 03/23/23 19:33 03/23/23 20:47 03/23/23 21:04 Temperature 36.6 C Pulse Rate 92 89 Respiratory Rate 20 16 Blood Pressure 103/63 122/77 Pulse Oximetry 95 98 Oxygen Delivery Room Air Exam Narrative: PHYSICAL EXAMINATION: Vital signs: Please see the chart General physical exam: patient lying in bed complaining of pain in the abdomen, appears in no acute distress Head/eyes: Atraumatic, EOMI, PERRLA ENT: Moist mucous membranes, nasal passages clear Neck: Supple, full range of motion, trachea midline CVS: S1 + S2, regular rate and rhythm, no murmurs Respiratory: Bilaterally fair air entry in both lung menard, mild B/L crackles, symmetric chest expansion, no distress Abdomen: Soft, + distended abdomen, + tenderness lower abdominal on palpation, b
[2023-03-23] MEDS: MORPHINE SULFATE (*CRX) 2 MG/ML INJ IV PUSH (22:14)
[2023-03-23] MEDS: SODIUM CHLORIDE 0.9% IV 1,000 ML 100 ML IV CONT (22:17)
[2023-03-23] MEDS: NICOTINE (*PBKC) 21 MG PATCH 1 PATCH TRANSDERM (22:17)
[2023-03-23] MEDS: metroNIDAZOLE 500 MG/ISO 100ML 500 MG/100 ML BAG 100 MG IVPB (22:18)
[2023-03-24] MEDS: MORPHINE SULFATE (*CRX) 2 MG/ML INJ IV PUSH ×5 (02:04→19:38)
[2023-03-24 05:10] VITALS: BP 118/60; PULSE 65; RESP 18; TEMP 36.6; O2SAT 97
[2023-03-24] MEDS: MEROPENEM 1 GM/NS 100 ML 1 GM/100 ML BAG IVPB ×3 (05:48→21:14)
[2023-03-24 05:54] LABS: Basophils Absolute Auto 0.1 K/mm3 (0.0-0.1); Basophils Percent Auto 0.6 % (0.2-1.2); Eosinophils Absolute Auto 0.6 K/mm3 (0-0.3); Eosinophils Percent Auto 4.1 % (0-4.4); Hematocrit 39.8 % (42.0-52.0); Hemoglobin 13.2 g/dL (14.0-18.0); Immature Granulocyte Absolute 0.08 K/mm3 (0.00-0.031); Immature Granulocyte Percent A 0.6 % (0-0.5); Lymphocytes Absolute Auto 2.52 K/mm3 (0.9-3.2); Lymphocytes Percent Auto 18.1 % (18.3-44.2); Mean Corpuscular HGB Conc 33.2 g/dl (32-36); Mean Corpuscular Hemoglobin 32.8 pg (26-34); Monocytes Absolute Auto 1.1 K/mm3 (0.1-0.6); Neutrophils Absolute Auto 9.6 K/mm3 (1.3-6.7); Neutrophils Percent Auto 68.6 % (45.5-73.1); Platelet Count Result 361 k/mm3 (150-375); Red Blood Count 4.02 M/mm3 (4.6-6.20); Red Cell Distribution Width 12.8 % (11.5-14.5); White Blood Count 13.9 K/mm3 (4.5-10.0)
[2023-03-24] MEDS: metroNIDAZOLE 500 MG/ISO 100ML 500 MG/100 ML BAG 100 MG IVPB ×3 (05:55→21:14)
[2023-03-24 06:05] LABS: Anion Gap 4 mmol/L (8-16); Blood Urea Nitrogen 14 mg/dL (9-20); Calcium 8.1 mg/dL (8.4-10.2); Carbon Dioxide 26 mmol/L (22-30); Chloride 106 mmol/L (98-107); Estimated CRCL calculation 74 ml/min; Estimated Glomerular Filt Rate > 60; Glucose 94 mg/dL (65-110); Phosphorus 3.5 mg/dL (2.5-4.5); Potassium 3.7 mmol/L (3.4-5.0); Sodium 136 mmol/L (137-145)
[2023-03-24] MEDS: NICOTINE (*PBKC) 21 MG PATCH 1 PATCH TRANSDERM (08:01)
[2023-03-24] MEDS: lisinopriL 20 MG TABLET PO (08:01)
[2023-03-24 10:13] VITALS: BP 124/66; PULSE 76; O2SAT 95
[2023-03-24] MEDS: SODIUM CHLORIDE 0.9% IV 1,000 ML 100 ML IV CONT ×2 (10:21→21:23)
--- NOTE | 2023-03-24 11:49 | WPDCN ---
Assessment and Plan Assessment and plan (1) Diverticulitis of intestine with perforation and abscess: Qualifiers: Diverticulitis bleeding: without bleeding Diverticulitis site: large intestine Qualified Code(s): K57.20 - Diverticulitis of large intestine with perforation and abscess without bleeding Code(s): K57.80 - Diverticulitis of intestine, part unspecified, with perforation and abscess without bleeding Status: Acute Assessment and Plan: Patient was admitted to the hospital with sigmoid diverticulitis with small intramural abscess of sigmoid colon and small brad colonic abscess and contained focus of free air consistent with microperforation. He is doing better today although still having pain. White blood cell count has decreased and he has been afebrile. Abdominal exam is appropriately tender but no evidence of diffuse peritoneal signs suggestive of need for emergent surgical management. Continue bowel rest for now and IV antibiotics. He likely will resolve with non operative management and avoid surgery. Will follow. HPI Data of Consult Date/Time: 03/24/23 11:49 Requesting Physician: Keanu Bang MD Primary Care Provider: Mesfin Cortes MD Consult Narrative Reason for consult: Acute sigmoid diverticulitis with micro perforation Narrative: Everardo Sumner is a 57 year old male who presented to the emergency room yesterday with complaints of lower abdominal pain for several days. He had episodes of nausea and some emesis at home. He has never had diverticulitis in the past. He did have a colonoscopy performed about 3 years ago for screening purposes and was told he had a couple of benign polyps. He was told he would not need another colonoscopy for 10 years. Workup in emergency room showed a mildly elevated white blood cell count 17,000. This morning is decreased on a 14,000. CT scan abdomen pelvis showed an area of inflammation and mild small perforation with a small focus of free air which is contained in the proximal sigmoid colon. No feculent appearing fluid was noted in the pelvis. No significant free air in the abdomen was noted. Patient was admitted to the floor and started on IV antibiotics and bowel rest. Review of Systems Review of Systems: The remainder of the review of systems to include constitutional, HEENT, cardiovascular, respiratory, GI, , integumentary, musculoskeletal, endocrine, immunologic, hematologic, psychiatric, and neurologic are all negative except for which is mentioned above in the HPI. [facility] Past Medical History Medical History Chronic lumbar pain Hypertension Nicotine dependence, cigarettes, with other nicotine-induced disorders Surgical History Surgical History History of lumbar spinal fusion Family History Family History Other Unknown family medical history Social History Social History Smoking packs per day: 1.5 Smoking cigarettes per day: 30.0 Smoking status: Current every day smoker Alcohol intake: current Drinks per week: 70 Substance use: current Substance use type: marijuana Other substance usage details: 3 TIMES PER DAY Lack of Transportation: YES Lack of Food: Sometimes True Current Housing: I Have Housing Concerned About Future Housing: No Difficulty Paying Gas/Electric Bills: YES Difficulty Paying for Meds: No Currently Unemployed: No Education: Grade School Difficulty w/ Childcare or Family Care: No Spiritual care concerns: No Meds Home Medications and Allergies Home Medications Medication Instructions Recorded Confirmed Type albuterol sulfate 90 mcg/actuation 2 puff inhalation Q4-6H PRN 03/23/23 03/23/23 History aerosol inhaler Shortness Of Breath Or Wheezing
[2023-03-24] MEDS: FENOFIBRATE,MICRONIZED 48 MG TABLET PO (13:17)
--- NOTE | 2023-03-24 13:53 | PM.IMPN ---
Progress Note: A&P Assessment and Plan (1) Diverticulitis of intestine with perforation and abscess: Qualifiers: Diverticulitis bleeding: without bleeding Diverticulitis site: large intestine Qualified Code(s): K57.20 - Diverticulitis of large intestine with perforation and abscess without bleeding Code(s): K57.80 - Diverticulitis of intestine, part unspecified, with perforation and abscess without bleeding Status: Acute Assessment and Plan: Patient has 2 cm intramural abscess of the proximal sigmoid colon with smaller adjacent perforation and perisigmoid abscess Patient was started on IV antibiotics Of meropenem and metronidazole Continue with IV hydration in the form of her normal saline at 100 cc/hour Strict I&Os IV pain meds p.o. p.r.n. as needed General surgery consult was given from ED for evaluation and further management General surgeon recommending conservative management and bowel rest. (2) Alcohol abuse: Code(s): F10.10 - Alcohol abuse, uncomplicated Status: Chronic Assessment and Plan: patient developed alcohol abuse due to chronic back pain. He used to take p.o. P medications they were discontinued approximately 1 year ago. He admits to approximately 10 shots of whiskey daily. CIWA protocol initiated. Ativan p.r.n. with CIWA greater than 8 (3) Hypertension: Code(s): I10 - Essential (primary) hypertension Status: Acute Assessment and Plan: continue lisinopril (4) Nicotine dependence, cigarettes, with other nicotine-induced disorders: Code(s): F17.218 - Nicotine dependence, cigarettes, with other nicotine-induced disorders Status: Chronic Assessment and Plan: nicotine patch p.r.n. (5) COPD (chronic obstructive pulmonary disease): Code(s): J44.9 - Chronic obstructive pulmonary disease, unspecified Status: Chronic Assessment and Plan: stable Subjective Date/time seen: 03/24/23 13:53 Interval history: Patient continues to have left lower quadrant abdominal pain. He denies any nausea, vomiting, hematochezia or melena. He did have diarrhea prior to presenting to ED states since being hospital he has only had 1 bowel movement. Patient was evaluated by General surgery and they are recommending continued bowel rest and IV antibiotics. Exam Narrative: GENERAL: Comfortable, no acute distress HENMT: moist mucous membranes EYES: EOM intact b/l NECK: no lymphadenopathy RESPIRATORY: clear to auscultation CARDIO: RRR GI: soft, Left lower quadrant tenderness to palpation, hyperactive bowel sounds SKIN: no rashes EXTREMITIES: no edema, redness or tenderness Objective Data Vital Signs Vital Signs: Vital Signs - 24 hr 03/23/23 17:48 03/23/23 18:20 03/23/23 19:16 Temperature 98.1 F Pulse Rate 98 94 95 Respiratory Rate 20 16 17 Blood Pressure 100/63 91/62 L 99/70 L Pulse Oximetry 97 95 95 Oxygen Delivery Room Air 03/23/23 19:33 03/23/23 20:47 03/23/23 21:04 Temperature 97.9 F Pulse Rate 92 89 Respiratory Rate 20 16 Blood Pressure 103/63 122/77 Pulse Oximetry 95 98 Oxygen Delivery Room Air 03/24/23 05:10 03/24/23 08:00 03/24/23 10:13 Temperature 97.8 F Pulse Rate 65 76 Respiratory Rate 18 Blood Pressure 118/60 124/66 Pulse Oximetry 97 95 Oxygen Delivery Room Air Intake/Output Intake/Output: Intake & Output 03/21/23 03/22/23 03/23/23 03/24/23 23:59 23:59 23:59 23:59 Intake Total 1205 1200 Output Total 1750 Balance 1205 -550 Meds/Results Medications: Active Medications Generic Name Dose Route Start Last Admin Trade Name Freq PRN Reason Stop Dose Admin Acetaminophen 650 mg 03/23/23 21:22 Acetaminophen 325 Mg Tablet PO Q4H PRN Mild Pain (1-3) or Fever Al Hydrox/Mg Hydrox/Simethicone 30 ml 03/23/23 21:22 Mag Hydrox/Al Hydrox/Simeth 30 Ml Udc PO QID PRN Dyspepsia Albu
[2023-03-24 14:51] VITALS: BP 119/68; PULSE 75; RESP 16; TEMP 36.7; O2SAT 98
[2023-03-24 16:00] VITALS: BP 119/68
[2023-03-24 17:53] LABS: Glucose Point of Care 94 mg/dl (65-105)
[2023-03-24 20:00] VITALS: BP 121/78; PULSE 83; RESP 14; TEMP 35.8; O2SAT 97
[2023-03-25] VITALS: BP 126/64; PULSE 69; RESP 16; TEMP 35.6; O2SAT 99
[2023-03-25] MEDS: MORPHINE SULFATE (*CRX) 4 MG/ML INJ IV PUSH ×2 (00:04→04:34)
[2023-03-25 00:23] LABS: Glucose Point of Care 80 mg/dl (65-105)
[2023-03-25 04:00] VITALS: BP 119/67; PULSE 66; RESP 14; TEMP 35.8; O2SAT 96
[2023-03-25] MEDS: MEROPENEM 1 GM/NS 100 ML 1 GM/100 ML BAG IVPB ×3 (05:00→21:19)
[2023-03-25] MEDS: metroNIDAZOLE 500 MG/ISO 100ML 500 MG/100 ML BAG 100 MG IVPB ×3 (05:12→21:19)
[2023-03-25 06:06] LABS: Basophils Absolute Auto 0.1 K/mm3 (0.0-0.1); Basophils Percent Auto 0.7 % (0.2-1.2); Eosinophils Absolute Auto 0.4 K/mm3 (0-0.3); Eosinophils Percent Auto 2.9 % (0-4.4); Hematocrit 42.6 % (42.0-52.0); Hemoglobin 13.3 g/dL (14.0-18.0); Immature Granulocyte Absolute 0.08 K/mm3 (0.00-0.031); Immature Granulocyte Percent A 0.6 % (0-0.5); Immature Platelet Fraction Pct 2.1 % (0.9-11.2); Lymphocytes Absolute Auto 1.99 K/mm3 (0.9-3.2); Lymphocytes Percent Auto 14.5 % (18.3-44.2); Mean Corpuscular HGB Conc 31.2 g/dl (32-36); Mean Corpuscular Hemoglobin 32.6 pg (26-34); Mean Corpuscular Volume 104.4 fl (80-100); Mean Platelet Volume 9.1 fl (7.4-10.4); Monocytes Absolute Auto 1.1 K/mm3 (0.1-0.6); Neutrophils Percent Auto 73.3 % (45.5-73.1); Platelet Count Result 342 k/mm3 (150-375); Red Blood Count 4.08 M/mm3 (4.6-6.20); Red Cell Distribution Width 12.6 % (11.5-14.5); White Blood Count 13.7 K/mm3 (4.5-10.0)
[2023-03-25 06:13] LABS: Glucose Point of Care 84 mg/dl (65-105)
[2023-03-25 06:19] LABS: Anion Gap 11 mmol/L (8-16); Blood Urea Nitrogen 9 mg/dL (9-20); Calcium 8.4 mg/dL (8.4-10.2); Carbon Dioxide 17 mmol/L (22-30); Chloride 104 mmol/L (98-107); Estimated CRCL calculation 89 ml/min; Estimated Glomerular Filt Rate > 60; Glucose 79 mg/dL (65-110); Sodium 132 mmol/L (137-145)
[2023-03-25 08:00] VITALS: BP 116/70; PULSE 66; RESP 16; TEMP 37.2; O2SAT 97
[2023-03-25] MEDS: FENOFIBRATE,MICRONIZED 48 MG TABLET PO (08:29)
[2023-03-25] MEDS: lisinopriL 20 MG TABLET PO (08:29)
[2023-03-25] MEDS: NICOTINE (*PBKC) 21 MG PATCH 1 PATCH TRANSDERM (08:29)
[2023-03-25] MEDS: THIAMINE HCL 200 MG/2 ML VIAL 100 MG IV PUSH (08:30)
[2023-03-25] MEDS: MORPHINE SULFATE (*CRX) 2 MG/ML INJ IV PUSH (08:31)
[2023-03-25] MEDS: SODIUM CHLORIDE 0.9% IV 1,000 ML 100 ML IV CONT ×2 (10:43→21:19)
[2023-03-25 12:00] VITALS: BP 113/68; PULSE 85; RESP 18; TEMP 36.4; O2SAT 98
[2023-03-25 12:21] LABS: Glucose Point of Care 79 mg/dl (65-105)
--- NOTE | 2023-03-25 13:45 | PM.PNGS ---
Progress Note: A&P Assessment and Plan (1) Diverticulitis of intestine with perforation and abscess: Qualifiers: Diverticulitis bleeding: without bleeding Diverticulitis site: large intestine Qualified Code(s): K57.20 - Diverticulitis of large intestine with perforation and abscess without bleeding Code(s): K57.80 - Diverticulitis of intestine, part unspecified, with perforation and abscess without bleeding Status: Acute Assessment and Plan: CT evidence of sigmoid diverticulitis with small intramural abscess and small pericolonic abscess with contained microperforation. Clinically improving. Continue Meropenem and Flagyl Will start clear liquids and add options for oral analgesics Plan I have discussed the patient's case and plan of care with Dr. Styles. Subjective Subjective Date/Time Seen: 03/25/23 11:45 Patient reports: no new complaints, feels better, pain is less, flatus, bowel movement (Today) and afebrile Interval history: This is a 57-year-old man who was admitted for sigmoid diverticulitis with microperforation and abscess. Chart reviewed. Patient reports significant improvement in his left lower quadrant abdominal pain. Reports his abdominal pain was aggravated with a bowel movement, but he is comfortable this morning. He feels much less tender. He is hungry and eager to try liquids. Exam Const: General: comfortable and no acute distress Orientation/consciousness: patient oriented x3 GI: Inspection: non-distended GI Palp: Yes Soft to palpation, Yes Tenderness to palpation present (GI) (lower abdominal tenderness, mostly in LLQ), Yes Guarding due to palpation present (GI) (LLQ) and No Rebound tenderness present Auscultation: normal bowel sounds Objective Data Vital Signs Vital Signs: Vital Signs - 24 hr 03/24/23 14:51 03/24/23 16:00 03/24/23 20:00 Temperature 98.0 F 96.4 F L Pulse Rate 75 83 Respiratory Rate 16 14 Blood Pressure 119/68 119/68 121/78 Pulse Oximetry 98 97 Oxygen Delivery 03/25/23 00:00 03/25/23 04:00 03/25/23 08:00 Temperature 96.1 F L 96.4 F L 98.9 F Pulse Rate 69 66 66 Respiratory Rate 16 14 16 Blood Pressure 126/64 119/67 116/70 Pulse Oximetry 99 96 97 Oxygen Delivery 03/25/23 08:00 Temperature Pulse Rate Respiratory Rate Blood Pressure Pulse Oximetry Oxygen Delivery Room Air Intake/Output Intake/Output: Intake & Output 03/22/23 03/23/23 03/24/23 03/25/23 23:59 23:59 23:59 23:59 Intake Total 1205 2600 1200 Output Total 1999 575 Balance 1205 600 625 Meds/Results Medications: Active Medications Generic Name Dose Route Start Last Admin Trade Name Freq PRN Reason Stop Dose Admin Acetaminophen 650 mg 03/23/23 21:22 Acetaminophen 325 Mg Tablet PO Q4H PRN Mild Pain (1-3) or Fever Hydrocodone Bitart/Acetaminophen 1 tab 03/25/23 11:00 Hydrocodone/Acetaminophen (*Crx) 5-325 Mg Tablet PO Q4H PRN Pain Rated 4-6 Hydrocodone Bitart/Acetaminophen 1 tab 03/25/23 11:00 Hydrocodone/Acetaminophen (*Crx) 7.5-325 Mg Tablet PO Q4H PRN Pain Rated 7-10 Al Hydrox/Mg Hydrox/Simethicone 30 ml 03/23/23 21:22 Mag Hydrox/Al Hydrox/Simeth 30 Ml Udc PO QID PRN Dyspepsia Albuterol 2 puff 03/23/23 21:26 Albuterol Sulfate (*Sp) Aerosol 1 Puff INHALATION Q4-6H PRN Shortness Of Breath Or Wheezing Dextrose 12.5 gm 03/23/23 21:31 Dextrose 50% 25 Gm/50 Ml Syringe IV PUSH PRN PRN Hypoglycemia Protocol Fenofibrate 48 mg 03/24/23 09:00 03/25/23 08:29 Fenofibrate,Micronized 48 Mg Tablet PO 48 mg QAM JOSE Administration Glucagon 1 mg 03/23/23 21:31 Glucagon For Inj 1 Mg Vial IM PRN PRN Hypoglycemia Protocol Glucose 15 gm 03/23/23 21:31 Glucose Oral Gel 15 Gm Of Glucse In 37.5 Gm Tube PO PRN PRN Hypoglycemia Protocol Meropenem 1 gm in 100 mls @ 200 mls/hr 03/24/23 06:00 10
[2023-03-25] MEDS: HYDROcodone/acetaminophen (*CRX) 7.5-325 MG TABLET 1 TAB PO ×2 (15:26→20:37)
--- NOTE | 2023-03-25 16:18 | PM.IMPN ---
Progress Note: A&P Assessment and Plan (1) Diverticulitis of intestine with perforation and abscess: Qualifiers: Diverticulitis bleeding: without bleeding Diverticulitis site: large intestine Qualified Code(s): K57.20 - Diverticulitis of large intestine with perforation and abscess without bleeding Code(s): K57.80 - Diverticulitis of intestine, part unspecified, with perforation and abscess without bleeding Status: Acute Assessment and Plan: Patient has 2 cm intramural abscess of the proximal sigmoid colon with smaller adjacent perforation and perisigmoid abscess Patient was started on IV antibiotics Of meropenem and metronidazole Continue with IV hydration in the form of her normal saline at 100 cc/hour Strict I&Os IV pain meds p.o. p.r.n. as needed General surgery consult was given from ED for evaluation and further management General surgeon recommending conservative management Advance diet as tolerated starting with clear liquids. (2) Alcohol abuse: Code(s): F10.10 - Alcohol abuse, uncomplicated Status: Chronic Assessment and Plan: patient developed alcohol abuse due to chronic back pain. He used to take p.o. P medications they were discontinued approximately 1 year ago. He admits to approximately 10 shots of whiskey daily. CIWA protocol initiated. Ativan p.r.n. with CIWA greater than 8 (3) Hypertension: Code(s): I10 - Essential (primary) hypertension Status: Acute Assessment and Plan: continue lisinopril (4) Nicotine dependence, cigarettes, with other nicotine-induced disorders: Code(s): F17.218 - Nicotine dependence, cigarettes, with other nicotine-induced disorders Status: Chronic Assessment and Plan: nicotine patch p.r.n. (5) COPD (chronic obstructive pulmonary disease): Code(s): J44.9 - Chronic obstructive pulmonary disease, unspecified Status: Chronic Assessment and Plan: stable Subjective Date/time seen: 03/25/23 16:18 Interval history: Patient needing titer pain control. Patient states that it is not so much that his abdomen is hurting him but rather his back. He has chronic back pain and has had lumbar surgeries. Discussed with him that while we want to control his pain and is also important that IV pain medication is not abused. He is open to doing oral pain medication 1st in using IV pain meds for breakthrough pain. Plan to advance diet starting at clear liquids and advancing to low-fiber. He continues to have diarrhea but denies any melena or hematochezia. No nausea, vomiting, chest pain or shortness of breath Exam Narrative: GENERAL: Comfortable, no acute distress HENMT: moist mucous membranes EYES: EOM intact b/l NECK: no lymphadenopathy RESPIRATORY: clear to auscultation CARDIO: RRR GI: soft, Left lower quadrant tenderness to palpation, hyperactive bowel sounds SKIN: no rashes EXTREMITIES: no edema, redness or tenderness Objective Data Vital Signs Vital Signs: Vital Signs - 24 hr 03/24/23 20:00 03/25/23 00:00 03/25/23 04:00 Temperature 96.4 F L 96.1 F L 96.4 F L Pulse Rate 83 69 66 Respiratory Rate 14 16 14 Blood Pressure 121/78 126/64 119/67 Pulse Oximetry 97 99 96 Oxygen Delivery 03/25/23 08:00 03/25/23 08:00 03/25/23 12:00 Temperature 98.9 F 97.6 F Pulse Rate 66 85 Respiratory Rate 16 18 Blood Pressure 116/70 113/68 Pulse Oximetry 97 98 Oxygen Delivery Room Air Intake/Output Intake/Output: Intake & Output 03/22/23 03/23/23 03/24/23 03/25/23 23:59 23:59 23:59 23:59 Intake Total 1205 2600 1640 Output Total 2000 575 Balance 0778 742 7295 Meds/Results Medications: Active Medications Generic Name Dose Route Start Last Admin Trade Name Freq PRN Reason Stop Dose Admin Acetaminophen 650 mg 03/23/23 21:22 Acetaminophen 325 Mg Tablet PO Q4H PRN Mild Pain (1-3) or Fever Hydr
[2023-03-25 17:41] LABS: Glucose Point of Care 98 mg/dl (65-105)
[2023-03-25 20:00] VITALS: BP 112/66; PULSE 64; RESP 14; TEMP 35.9; O2SAT 96
[2023-03-26 00:07] LABS: Glucose Point of Care 99 mg/dl (65-105)
[2023-03-26] MEDS: HYDROcodone/acetaminophen (*CRX) 7.5-325 MG TABLET 1 TAB PO ×3 (00:33→09:40)
[2023-03-26 04:00] VITALS: BP 129/69; PULSE 64; RESP 14; TEMP 35.6; O2SAT 96
[2023-03-26] MEDS: MEROPENEM 1 GM/NS 100 ML 1 GM/100 ML BAG IVPB ×2 (05:03→13:20)
[2023-03-26] MEDS: metroNIDAZOLE 500 MG/ISO 100ML 500 MG/100 ML BAG 100 MG IVPB ×2 (05:03→14:02)
[2023-03-26 05:58] LABS: Glucose Point of Care 102 mg/dl (65-105)
[2023-03-26 05:59] LABS: Basophils Absolute Auto 0.1 K/mm3 (0.0-0.1); Basophils Percent Auto 0.6 % (0.2-1.2); Eosinophils Absolute Auto 0.5 K/mm3 (0-0.3); Eosinophils Percent Auto 3.8 % (0-4.4); Hematocrit 38.9 % (42.0-52.0); Hemoglobin 13.1 g/dL (14.0-18.0); Immature Granulocyte Absolute 0.05 K/mm3 (0.00-0.031); Immature Granulocyte Percent A 0.4 % (0-0.5); Lymphocytes Absolute Auto 1.97 K/mm3 (0.9-3.2); Lymphocytes Percent Auto 15.2 % (18.3-44.2); Mean Corpuscular HGB Conc 33.7 g/dl (32-36); Neutrophils Absolute Auto 9.3 K/mm3 (1.3-6.7); Platelet Count Result 359 k/mm3 (150-375); Red Blood Count 3.97 M/mm3 (4.6-6.20); Red Cell Distribution Width 12.3 % (11.5-14.5); White Blood Count 12.9 K/mm3 (4.5-10.0)
[2023-03-26 06:07] LABS: Anion Gap 9 mmol/L (8-16); Blood Urea Nitrogen 6 mg/dL (9-20); Calcium 8.7 mg/dL (8.4-10.2); Carbon Dioxide 21 mmol/L (22-30); Chloride 106 mmol/L (98-107); Estimated CRCL calculation 100 ml/min; Estimated Glomerular Filt Rate > 60; Glucose 98 mg/dL (65-110); Potassium 3.5 mmol/L (3.4-5.0); Sodium 136 mmol/L (137-145)
[2023-03-26] MEDS: lisinopriL 20 MG TABLET PO (09:30)
[2023-03-26] MEDS: FENOFIBRATE,MICRONIZED 48 MG TABLET PO (09:30)
[2023-03-26] MEDS: NICOTINE (*PBKC) 21 MG PATCH 1 PATCH TRANSDERM (09:30)
[2023-03-26] MEDS: THIAMINE HCL 200 MG/2 ML VIAL 100 MG IV PUSH (09:31)
--- NOTE | 2023-03-26 12:16 | PC.NURSE ---
Kate and Glucose monitoring discontinued per Sandy Amaya.
--- NOTE | 2023-03-26 13:20 | PM.DS ---
DS: Admitting Diagnosis Discharge Date 03/26/23 Admitting Diagnosis Sigmoid diverticulitis with perforation and abscess DS: Discharge Diagnosis Discharge Diagnosis (1) Diverticulitis of intestine with perforation and abscess: Qualifiers: Diverticulitis bleeding: without bleeding Diverticulitis site: large intestine Qualified Code(s): K57.20 - Diverticulitis of large intestine with perforation and abscess without bleeding Code(s): K57.80 - Diverticulitis of intestine, part unspecified, with perforation and abscess without bleeding Status: Acute (2) Alcohol abuse: Code(s): F10.10 - Alcohol abuse, uncomplicated Status: Chronic (3) Hypertension: Code(s): I10 - Essential (primary) hypertension Status: Acute (4) Nicotine dependence, cigarettes, with other nicotine-induced disorders: Code(s): F17.218 - Nicotine dependence, cigarettes, with other nicotine-induced disorders Status: Chronic (5) COPD (chronic obstructive pulmonary disease): Code(s): J44.9 - Chronic obstructive pulmonary disease, unspecified Status: Chronic DS: Summary Hospital Course Hospital Course: This is a 57-year-old male with a past medical history of hypertension and hypercholesterolemia the presented to the ED on 03/23/2023 due to 5 days of worsening abdominal pain. CT abdomen pelvis showing sigmoid diverticulitis with perforation and multiple abscesses. general surgery consulted. He was started on IV pain meds and fluids as well as IV antibiotics. General surgery decided to do conservative management on the patient with bowel rest. Patient was slowly restarted on a diet starting with clear liquids and advancing to a low-fiber diet. Patient's white count decreased during his stay. Patient was discharged home on p.o. antibiotics. His labs and vital signs stable and he is medically cleared for discharge at this time. Time Spent with Patient Time attestation: Total time spent providing and/or coordinating discharge services: Exam Narrative: GENERAL: Comfortable, no acute distress HENMT: moist mucous membranes EYES: EOM intact b/l NECK: no lymphadenopathy RESPIRATORY: clear to auscultation CARDIO: RRR GI: soft, Left lower quadrant tenderness to palpation, hyperactive bowel sounds SKIN: no rashes EXTREMITIES: no edema, redness or tenderness DS: Data Data Completed and Pending Labs on day of discharge: Labs from last 24 hours 03/26/23 03/26/23 03/26/23 05:47 05:30 00:03 WBC 12.9 H RBC 3.97 L Hgb 13.1 L Hct 38.9 L MCV 98.0 D MCH 33.0 MCHC 33.7 RDW 12.3 Plt Count 359 MPV 9.0 Immature Gran % (Auto) 0.4 Neut % (Auto) 72.0 Lymph % (Auto) 15.2 L [place] % (Auto) 8.0 Eos % (Auto) 3.8 Baso % (Auto) 0.6 Lymph # (Auto) 1.97 [place] # (Auto) 1.0 H Eos # (Auto) 0.5 H Baso # (Auto) 0.1 Abs Immat Gran (auto) 0.05 H Absolute Neuts (auto) 9.3 H Absolute Nucleated RBC 0.0 Nucleated RBC % 0.0 Sodium 136 L Potassium 3.5 Chloride 106 Carbon Dioxide 21 L Anion Gap 9 BUN 6 L Creatinine 0.80 Estim Creat Clear Calc 100 Estimated GFR > 60 Glucose 98 POC Capillary Glucose 102 99 Calcium 8.7 03/25/23 17:36 WBC RBC Hgb Hct MCV MCH MCHC RDW Plt Count MPV Immature Gran % (Auto) Neut % (Auto) Lymph % (Auto) [place] % (Auto) Eos % (Auto) Baso % (Auto) Lymph # (Auto) [place] # (Auto) Eos # (Auto) Baso # (Auto) Abs Immat Gran (auto) Absolute Neuts (auto) Absolute Nucleated RBC Nucleated RBC % Sodium Potassium Chloride Carbon Dioxide Anion Gap BUN Creatinine Estim Creat Clear Calc Estimated GFR Glucose POC Capillary Glucose 98 Calcium Discharge Plan Discharge Attending physician on discharge: Geraldo Tanner Consulting providers: Seun Styles; Keanu Bang; Jia Tipton Discharging Clinician
--- NOTE | 2023-03-26 13:52 | PM.PNGS ---
Progress Note: A&P Assessment and Plan (1) Diverticulitis of intestine with perforation and abscess: Qualifiers: Diverticulitis bleeding: without bleeding Diverticulitis site: large intestine Qualified Code(s): K57.20 - Diverticulitis of large intestine with perforation and abscess without bleeding Code(s): K57.80 - Diverticulitis of intestine, part unspecified, with perforation and abscess without bleeding Status: Acute Assessment and Plan: Patient has improved clinically and is responding to nonoperative management for his diverticulitis and perisigmoid abscess. He has tolerated full liquids and will advance him to a low-fiber diet. If he tolerates a low fiber diet and he can likely be discharged home on oral antibiotics for another 10 days. We will plan on giving him Cipro and Flagyl at home. He should follow his primary care physician. He had a colonoscopy about 3 years ago and he may need another 1 after this episode of diverticulitis. He does not to follow up with general surgery. He should stay on a low-fiber diet for the next 3 to 4 weeks and then switch to a high-fiber diet. He may be discharged home today as per the hospitalist service. Subjective Subjective Date/Time Seen: 03/26/23 13:52 Interval history: Patient feels better today. Much less left lower quadrant abdominal pain. He has had a bowel movement today. Tolerating [place] [id number] and no fever. Exam GI: Other: Abdomen is soft and nondistended. Minimal tenderness to palpation left lower quadrant. No rebound is noted. Objective Data Vital Signs Vital Signs: Vital Signs - 24 hr 03/25/23 20:00 03/26/23 04:00 Temperature 35.9 C L 35.6 C L Pulse Rate 64 64 Respiratory Rate 14 14 Blood Pressure 112/66 129/69 Pulse Oximetry 96 96 Intake/Output Intake/Output: Intake & Output 03/23/23 03/24/23 03/25/23 03/26/23 23:59 23:59 23:59 23:59 Intake Total 1205 2600 4080 620 Output Total 2000 575 3300 Balance 7267 751 8999 -3180 Meds/Results Medications: Active Medications Generic Name Dose Route Start Last Admin Trade Name Freq PRN Reason Stop Dose Admin Acetaminophen 650 mg 03/23/23 21:22 Acetaminophen 325 Mg Tablet PO Q4H PRN Mild Pain (1-3) or Fever Hydrocodone Bitart/Acetaminophen 1 tab 03/25/23 11:00 Hydrocodone/Acetaminophen (*Crx) 5-325 Mg Tablet PO Q4H PRN Pain Rated 4-6 Hydrocodone Bitart/Acetaminophen 1 tab 03/25/23 11:00 03/26/23 09:40 Hydrocodone/Acetaminophen (*Crx) 7.5-325 Mg Tablet PO 1 tab Q4H PRN Administration Pain Rated 7-10 Al Hydrox/Mg Hydrox/Simethicone 30 ml 03/23/23 21:22 Mag Hydrox/Al Hydrox/Simeth 30 Ml Udc PO QID PRN Dyspepsia Albuterol 2 puff 03/23/23 21:26 Albuterol Sulfate (*Sp) Aerosol 1 Puff INHALATION Q4-6H PRN Shortness Of Breath Or Wheezing Dextrose 12.5 gm 03/23/23 21:31 Dextrose 50% 25 Gm/50 Ml Syringe IV PUSH PRN PRN Hypoglycemia Protocol Fenofibrate 48 mg 03/24/23 09:00 03/26/23 09:30 Fenofibrate,Micronized 48 Mg Tablet PO 48 mg QAM JOSE Administration Glucagon 1 mg 03/23/23 21:31 Glucagon For Inj 1 Mg Vial IM PRN PRN Hypoglycemia Protocol Glucose 15 gm 03/23/23 21:31 Glucose Oral Gel 15 Gm Of Glucse In 37.5 Gm Tube PO PRN PRN Hypoglycemia Protocol Meropenem 1 gm in 100 mls @ 200 mls/hr 03/24/23 06:00 03/26/23 13:20 IVPB 200 mls/hr Q8H JOSE Administration Metronidazole 500 mg in 100 mls @ 100 mls/hr 03/23/23 22:00 03/26/23 06:03 Flagyl 500 Mg/Iso Soln 100 Ml IVPB Infused Q8H JOSE Infusion Dextrose 1,000 mls @ 100 mls/hr 03/23/23 21:31 Dextrose 5% 1,000 Ml IVPB PRN PRN Hypoglycemia Protocol Lisinopril 20 mg 03/24/23 09:00 03/26/23 09:30 Lisinopril 20 Mg Tablet PO 20 mg DAILY JOSE Administration Lorazepam 2 mg
[2023-03-26 14:00] VITALS: BP 141/81; PULSE 63; RESP 14; TEMP 37; O2SAT 98
== END 2023-03-26 18:10 | disposition home or self-care (01) | DRG 392 ==
LOC: ANHED 18:52 → ANH3MED 19:22
PROVIDERS: Admitting Provider Family Medicine; Emergency Provider Physician Assistant; PCP Emergency Medicine; Visit Provider Internal Medicine Critical Care Medicine
DX: K57.20 Diverticulitis of large intestine with perforation and abscess without bleeding (principal); F10.10 Alcohol abuse, uncomplicated; I10 Essential (primary) hypertension; J44.9 Chronic obstructive pulmonary disease, unspecified; E78.00 Pure hypercholesterolemia, unspecified; F17.210 Nicotine dependence, cigarettes, uncomplicated; M54.50 Low back pain, unspecified; G89.29 Other chronic pain; Z98.1 Arthrodesis status; Z91.199 Patient's noncompliance with other medical treatment and regimen due to unspecified reason
CPT/HCPCS: 36415; 74177; 80048; 80053; 81003; 82948; 83605; 83690; 83735; 84100; 85025; 85055; 87040; 96361; 96365; 96367; 96375; 99284; 99285; A9270; J0696; J1836; J2185; J2270; J2405; J3411; J7030; Q9967

== ENCOUNTER 2023-04-08 08:01 | Outpatient (CLI) | payer MEDICARE, MEDICAID, SELFPAY ==
--- NOTE | ~2023-04-08 | US_ITS ---
Limited Abdominal Sonogram: Real-time sonographic imaging of the right upper quadrant was performed. Clinical History: Abnormal liver enzymes Findings: The liver appears normal with no evidence of mass lesion or bile duct dilatation. Main por roberto vein demonstrates normal direction of flow. The gallbladder is partially distended, and appears n ormal with no evidence of gallstone or definite wall thickening. The common bile duct measures 4 mm. The visualized pancreas, aorta, and IVC are unremarkable. Impression: No significant abnormality seen. Reviewed, dictated and finalized at location M. Impression: No significant abnormality seen.
[2023-04-08 10:38] LABS: Hepatitis B Surface Antigen Negative (Negative)
[2023-04-08 10:44] LABS: HAV RESULT Negative (Negative); Hepatitis B Core IgM Result Negative (Negative)
[2023-04-08 10:56] LABS: Hepatitis C Virus Antibody Negative (Negative)
== END 2023-04-08 08:02 | disposition home or self-care (01) ==
PROVIDERS: PCP Emergency Medicine; Visit Provider Emergency Medicine
DX: R94.5 Abnormal results of liver function studies (principal)
CPT/HCPCS: 36415; 76705; 80074

== ENCOUNTER 2023-04-19 09:13 | Outpatient (CLI) | payer MEDICARE, MEDICAID, SELFPAY ==
[2023-04-19 09:51] LABS: Hematocrit 45.3 % (42.0-52.0); Hemoglobin 14.9 g/dL (14.0-18.0); Mean Corpuscular HGB Conc 32.9 g/dl (32-36); Mean Corpuscular Hemoglobin 31.6 pg (26-34); Mean Corpuscular Volume 96.2 fl (80-100); Mean Platelet Volume 8.7 fl (7.4-10.4); Platelet Count Result 370 k/mm3 (150-375); Red Blood Count 4.71 M/mm3 (4.6-6.20); Red Cell Distribution Width 12.9 % (11.5-14.5); White Blood Count 12.9 K/mm3 (4.5-10.0)
[2023-04-19 10:02] LABS: Alanine Aminotransferase 25 U/L (6-50); Albumin Level 4.6 g/dL (3.5-5.1); Alkaline Phosphatase 50 U/L (38-126); Anion Gap 10 mmol/L (8-16); Aspartate Amino Transferase 31 U/L (17-59); Bilirubin,Total 0.7 mg/dL (0.2-1.3); Blood Urea Nitrogen 17 mg/dL (9-20); Calcium 9.6 mg/dL (8.4-10.2); Carbon Dioxide 19 mmol/L (22-30); Chloride 103 mmol/L (98-107); Estimated Glomerular Filt Rate > 60; Glucose 99 mg/dL (65-110); Potassium 4.4 mmol/L (3.4-5.0); Sodium 132 mmol/L (137-145)
== END 2023-04-19 09:14 | disposition home or self-care (01) ==
LOC: ANHLAB 09:15
PROVIDERS: PCP Emergency Medicine; Visit Provider Emergency Medicine
DX: I10 Essential (primary) hypertension (principal)
CPT/HCPCS: 36415; 80053; 85027

== ENCOUNTER 2023-05-03 09:02 | Outpatient (CLI) | payer MEDICARE, MEDICAID, SELFPAY ==
[2023-05-03 09:45] LABS: Alanine Aminotransferase 20 U/L (6-50); Albumin Level 4.5 g/dL (3.5-5.1); Alkaline Phosphatase 52 U/L (38-126); Anion Gap 9 mmol/L (8-16); Aspartate Amino Transferase 25 U/L (17-59); Bilirubin,Total 0.7 mg/dL (0.2-1.3); Blood Urea Nitrogen 19 mg/dL (9-20); Calcium 9.7 mg/dL (8.4-10.2); Carbon Dioxide 28 mmol/L (22-30); Chloride 99 mmol/L (98-107); Cholesterol 150 mg/dL (0-200); Estimated Glomerular Filt Rate > 60; Glucose 97 mg/dL (65-110); HDL Direct 31 mg/dL; Potassium 4.4 mmol/L (3.4-5.0); Sodium 136 mmol/L (137-145); Triglycerides 145 mg/dL (<150)
[2023-05-03 09:56] LABS: LDL Cholesterol Direct 79 mg/dL
[2023-05-07 07:20] LABS: Lipoprotein A 12 nmol/L (<75)
== END 2023-05-03 09:03 | disposition home or self-care (01) ==
PROVIDERS: PCP Emergency Medicine; Visit Provider Internal Medicine Cardiovascular Disease
DX: E78.1 Pure hyperglyceridemia (principal); R74.8 Abnormal levels of other serum enzymes; M54.9 Dorsalgia, unspecified; F10.10 Alcohol abuse, uncomplicated; E78.5 Hyperlipidemia, unspecified; E78.00 Pure hypercholesterolemia, unspecified; I10 Essential (primary) hypertension; Z13.6 Encounter for screening for cardiovascular disorders
CPT/HCPCS: 36415; 80053; 80061; 83695

== ENCOUNTER 2024-02-17 14:54 | Inpatient (IN) | payer MEDICARE, MEDICAID, SELFPAY ==
--- NOTE | ~2024-02-17 | CT_ITS ---
EXAMINATION: CT abdomen pelvis w con DATE: 02/17/2024 18:19 INDICATION: Abdominal pain. TECHNIQUE: Computed tomography (CT) of the abdomen and pelvis was performed with 100 mL Omnipaque 350 intravenous contrast. Automated exposure control and iterative reconstruction technique were employe d. The dose-length product was 788.57 mGy-cm. COMPARISON: CT abdomen pelvis 03/23/2023 FINDINGS: The visualized portions of the lung bases demonstrate mild atelectasis. Emphysema is noted. No pericardial effusion. The heart size is normal. There are coronary artery calcifications. No brad cardial effusion. There is a small sliding hiatal hernia. Calcifications in the liver and spleen are consistent with old granulomatous disease. There are gallstones in the gallbladder, which is normal i n size. The pancreas, adrenal glands, and left kidney are normal. There is a 3 mm cyst in right kidne y. There are bilateral inguinal hernias containing fat. There are scattered diverticula in the colon. There is wall thickening of the sigmoid colon with surrounding fat stranding, consistent with divert iculitis. The appendix is normal. There are no dilated loops of bowel. There are no pathologically en larged lymph nodes. There is no free intraperitoneal fluid. There is calcified atherosclerosis of the aorta and many of the other arteries. There are changes of anterior and posterior fusion procedures at L5-S1. There is mild thoracic and lumbar spondylosis. IMPRESSION: 1. Acute sigmoid diverticulosis. No perforation or abscess. Reviewed, dictated and finalized at location A.
[2024-02-17 16:25] VITALS: BP 125/74; PULSE 96; RESP 15; TEMP 36.8; O2SAT 97
--- NOTE | 2024-02-17 16:27 | ED.ABDPAIN ---
HPI - Abdominal Pain General Chief Complaint: Abdominal Pain <Lauren Yu PA-C - Last Filed: 02/20/24 09:48> Stated Complaint: abd pain <Lauren Yu PA-C - Last Filed: 02/20/24 09:48> Time Seen by Provider: 02/17/24 16:27 <Lauren Yu PA-C - Last Filed: 02/20/24 09:48> Focused HPI: This is a 58 year old male that presents to the ER for left sided abdominal pain. Ongoing over the last 5 days. Reports associated nausea. Reports history of diverticulitis and that his pain feels similar. Denies fevers. GENERAL: Well-appearing, well-nourished, and in no acute distress. HEAD: Normocephalic, atraumatic. CHEST: Clear to auscultation. ?No respiratory distress. HEART: Regular rate and rhythm.? NEURO: ?Alert and oriented x3. Patient screened in triage and initial orders placed.? ?Additional care and disposition to be based upon?diagnostic testing and treatment. <Lauren Yu PA-C - Last Filed: 02/20/24 09:48> Focused HPI: This is a 58 year old male that presents to the ER for left sided abdominal pain. Ongoing over the last 5 days. Reports associated nausea. Reports history of diverticulitis and that his pain feels similar. Denies fevers. GENERAL: Well-appearing, well-nourished, and in no acute distress. HEAD: Normocephalic, atraumatic. CHEST: Clear to auscultation. ?No respiratory distress. HEART: Regular rate and rhythm.? NEURO: ?Alert and oriented x3. Patient screened in triage and initial orders placed.? ?Additional care and disposition to be based upon?diagnostic testing and treatment. Agree with triage assessment. Patient states that he was admitted 1 year ago for diverticulitis for 5 days. States that the pain has started 5 days ago and has been progressively getting worse. Admits to nausea and vomiting. Denies any fevers or chills at home. <Faisal Beck MD - Last Filed: 02/17/24 20:59> Related Data Home Medications: Home Medications Medication Instructions Recorded Confirmed albuterol sulfate 90 mcg/actuation 2 puff inhalation Q4-6H PRN 03/23/23 02/17/24 aerosol inhaler Shortness Of Breath Or Wheezing lisinopril 10 mg tablet 20 mg PO DAILY 03/23/23 02/17/24 <Lauren Yu PA-C - Last Filed: 02/20/24 09:48> Allergies/Adverse Reactions: Allergies Allergy/AdvReac Type Severity Reaction Status Date / Time ampicillin AdvReac Unknown Verified 02/17/24 14:58 Penicillins AdvReac Unknown Verified 02/17/24 14:58 <Lauren Yu PA-C - Last Filed: 02/20/24 09:48> Review of Systems Review of Systems: All systems are reviewed and are negative unless stated otherwise in the HPI. <Faisal Beck MD - Last Filed: 02/17/24 20:59> PMFSH Past Medical History Medical History: Medical History Chronic lumbar pain Hypertension Nicotine dependence, cigarettes, with other nicotine-induced disorders <Lauren Yu PA-C - Last Filed: 02/20/24 09:48> Surgical History Surgical History: Surgical History History of lumbar spinal fusion <Lauren Yu PA-C - Last Filed: 02/20/24 09:48> Family History Family History: Family History Other Unknown family medical history <Lauren Yu PA-C - Last Filed: 02/20/24 09:48> Social History Social History: Social History Smoking packs per day: 1 Smoking cigarettes per day: 20.0 Smoking status: Current every day smoker Tobacco type: cigarettes Alcohol intake: current Drinks per week: 49 Substance use: current Substance use type: marijuana Other substance usage details: 3 TIMES PER DAY Do You Feel Safe in your Home?: Yes Lack of Transportation: No Lack of Food: Often True Current Housing: I Have Housing Concerned About Future Housing: No Diff
[2024-02-17 16:55] LABS: Basophils Absolute Auto 0.1 K/mm3 (0.0-0.1); Basophils Percent Auto 0.7 % (0.2-1.2); Eosinophils Absolute Auto 0.4 K/mm3 (0-0.3); Eosinophils Percent Auto 2.1 % (0-4.4); Hematocrit 53.1 % (42.0-52.0); Hemoglobin 18.6 g/dL (14.0-18.0); Immature Granulocyte Absolute 0.33 K/mm3 (0.00-0.031); Immature Granulocyte Percent A 1.9 % (0-0.5); Lymphocytes Absolute Auto 2.43 K/mm3 (0.9-3.2); Lymphocytes Percent Auto 14.3 % (18.3-44.2); Mean Corpuscular Hemoglobin 34.3 pg (26-34); Mean Corpuscular Volume 97.8 fl (80-100); Monocytes Absolute Auto 1.5 K/mm3 (0.1-0.6); Monocytes Percent Auto 8.6 % (2.6-8.5); Neutrophils Absolute Auto 12.3 K/mm3 (1.3-6.7); Neutrophils Percent Auto 72.4 % (45.5-73.1); Platelet Count Result 319 k/mm3 (150-375); Red Blood Count 5.43 M/mm3 (4.6-6.20); Red Cell Distribution Width 13.1 % (11.5-14.5)
[2024-02-17 17:01] LABS: Lactic Acid Reflex 1.2 mmol/L (0.7-2.0)
[2024-02-17 17:02] LABS: Alanine Aminotransferase 140 U/L (6-50); Albumin Level 4.6 g/dL (3.5-5.1); Alkaline Phosphatase 73 U/L (38-126); Anion Gap 14 mmol/L (4-12); Aspartate Amino Transferase 77 U/L (17-59); Bilirubin,Total 1.3 mg/dL (0.2-1.3); Blood Urea Nitrogen 21 mg/dL (9-20); Calcium 9.5 mg/dL (8.4-10.2); Carbon Dioxide 23 mmol/L (22-30); Chloride 95 mmol/L (98-107); Estimated CRCL calculation 80 ml/min; Estimated Glomerular Filt Rate > 60; Glucose 107 mg/dL (65-110); Lipase 72 U/L (23-300); Potassium 4.4 mmol/L (3.4-5.0); Sodium 132 mmol/L (137-145)
--- NOTE | 2024-02-17 20:46 | PM.IMHP ---
H&P: HPI History of Present Illness Date/Time: 02/17/24 20:46 Chief Complaint: left lower quadrant Narrative: This is a 58-year-old male with past medical history significant for tobacco dependence, alcohol dependence, COPD/ emphysema, patient smokes a pack of cigarettes daily. Presents to the emergency room due to left lower quadrant pain for several days constipation nausea vomiting poor per orally intake. Patient tried Dulcolax with no relief of symptoms. Denies hematemesis, coffee-ground emesis, bright red blood per rectum, melena, weight loss. Preliminary workup was significant for CT of abdomen and pelvis with sigmoid diverticulitis EXAMINATION: CT abdomen pelvis w con DATE: 02/17/2024 18:19 INDICATION: Abdominal pain. TECHNIQUE: Computed tomography (CT) of the abdomen and pelvis was performed with 100 mL Omnipaque 350 intravenous contrast. Automated exposure control and iterative reconstruction technique were employed. The dose-length product was 788.57 mGy-cm. COMPARISON: CT abdomen pelvis 03/23/2023 FINDINGS: The visualized portions of the lung bases demonstrate mild atelectasis. Emphysema is noted. No pericardial effusion. The heart size is normal. There are coronary artery calcifications. No pericardial effusion. There is a small sliding hiatal hernia. Calcifications in the liver and spleen are consistent with old granulomatous disease. There are gallstones in the gallbladder, which is normal in size. The pancreas, adrenal glands, and left kidney are normal. There is a 3 mm cyst in right kidney. There are bilateral inguinal hernias containing fat. There are scattered diverticula in the colon. There is wall thickening of the sigmoid colon with surrounding fat stranding, consistent with diverticulitis. The appendix is normal. There are no dilated loops of bowel. There are no pathologically enlarged lymph nodes. There is no free intraperitoneal fluid. There is calcified atherosclerosis of the aorta and many of the other arteries. There are changes of anterior and posterior fusion procedures at L5-S1. There is mild thoracic and lumbar spondylosis. IMPRESSION: 1. Acute sigmoid diverticulosis. No perforation or abscess. Review of Systems Review of Systems: left lower quadrant pain, constipation. PMFSH Past Medical History Medical History Chronic lumbar pain Hypertension Nicotine dependence, cigarettes, with other nicotine-induced disorders Surgical History Surgical History History of lumbar spinal fusion Family History Family History Other Unknown family medical history Social History Social History Smoking packs per day: 1 Smoking cigarettes per day: 20.0 Smoking status: Current every day smoker Tobacco type: cigarettes Alcohol intake: current Drinks per week: 49 Substance use: current Substance use type: marijuana Other substance usage details: 3 TIMES PER DAY Do You Feel Safe in your Home?: Yes Lack of Transportation: No Lack of Food: Often True Current Housing: I Have Housing Concerned About Future Housing: No Difficulty Paying Gas/Electric Bills: No Difficulty Paying for Meds: No Currently Unemployed: No Education: Grade School Difficulty w/ Childcare or Family Care: No Spiritual care concerns: No Meds Home Medications and Allergies Home Medications Medication Instructions Recorded Confirmed Type albuterol sulfate 90 mcg/actuation 2 puff inhalation Q4-6H PRN 03/23/23 02/17/24 History aerosol inhaler Shortness Of Breath Or Wheezing lisinopril 10 mg tablet 20 mg PO DAILY 03/23/23 02/17/24 History Allergies Allergy/AdvReac Type Severity Reaction Status Date / Time ampicillin AdvReac Unknown Verified 02/17/24 14:58
[2024-02-17 21:03] VITALS: BP 117/79; PULSE 76; RESP 15; O2SAT 95
--- NOTE | 2024-02-17 21:06 | PC.NURSE ---
pt unable to urinate at this time. pt denying straight cath at this time
[2024-02-17] MEDS: MORPHINE SULFATE (*CRX) 4 MG/ML INJ IV PUSH (21:14)
[2024-02-17] MEDS: SODIUM CHLORIDE 0.9% IV 1,000 ML 999 ML IV CONT (21:14)
[2024-02-17] MEDS: ONDANSETRON INJ 4 MG/2 ML VIAL IV PUSH (21:14)
[2024-02-17] MEDS: metroNIDAZOLE 500 MG/ISO 100ML 500 MG/100 ML BAG 100 MG IVPB (21:14)
[2024-02-17 22:15] VITALS: BP 133/81; PULSE 78; RESP 20; O2SAT 93
--- NOTE | 2024-02-17 22:33 | ADMGEN ---
This patient, Everardo Sumner, was admitted to [facility] Surg Room 314-01. Patient/family oriented to hospital policies and general routines including ID bracelet, bed and alarms, visiting hours, pain management, procedures, bathroom and other care routines, personal items, smoking policy, room service/diet, and visiting hours. Information on how to activate the Rapid Response Team has been discussed. Patient/Family are encouraged to report perceived risks to care and to ask questions if they do not understand what they are told or what they should do.
[2024-02-17 22:35] VITALS: BP 137/88; PULSE 81; RESP 18; TEMP 36.8; O2SAT 95; BMI 26.8
[2024-02-17 22:50] LABS: Add Urine Microscopic? NO; Appearance Urine Clear (Clear); Bilirubin Urine Negative (Negative); Blood Urine Negative (Negative); Color Urine Yellow (Yellow); Glucose Urine UA Negative (Negative); Ketones Urine Negative (Negative); Leukocyte Esterase Ur Negative LEU/UL (Negative); Nitrate Urine Negative (Negative); Protein Urine Negative (Negative); Specific Grav Ur > 1.045 (1.001-1.035)
[2024-02-17] MEDS: NICOTINE (*PBKC) 21 MG PATCH 1 PATCH TRANSDERM (22:58)
[2024-02-17] MEDS: HYDROmorphone HCL INJ (*CRX) 1 MG/ML SYR IV PUSH (23:21)
[2024-02-18] MEDS: HYDROmorphone HCL INJ (*CRX) 1 MG/ML SYR IV PUSH ×7 (02:36→22:48)
[2024-02-18 05:17] VITALS: BP 115/64; PULSE 75; RESP 18; TEMP 36.3; O2SAT 97
[2024-02-18 08:17] VITALS: O2SAT 96
[2024-02-18] MEDS: NICOTINE (*PBKC) 21 MG PATCH 1 PATCH TRANSDERM (09:32)
--- NOTE | 2024-02-18 10:10 | PM.IMPN ---
Progress Note: A&P Assessment and Plan (1) Abdominal pain: Qualifiers: Abdominal location: left lower quadrant Qualified Code(s): R10.32 - Left lower quadrant pain Code(s): R10.9 - Unspecified abdominal pain Status: Acute Assessment and Plan: admit to regular medical floor (2) Sigmoid diverticulitis: Code(s): K57.32 - Diverticulitis of large intestine without perforation or abscess without bleeding Status: Acute (3) Transaminitis: Code(s): R74.01 - Elevation of levels of liver transaminase levels Status: Acute (4) Alcohol abuse: Code(s): F10.10 - Alcohol abuse, uncomplicated Status: Chronic (5) COPD (chronic obstructive pulmonary disease): Code(s): J44.9 - Chronic obstructive pulmonary disease, unspecified Status: Chronic Assessment and Plan: Cont home meds (6) Tobacco dependence: Code(s): F17.200 - Nicotine dependence, unspecified, uncomplicated Status: Acute Plan Diverticulitis/Diverticulosis: -Ordered Metronidazole and Ciprofloxacin (to cover anaerobes + GNR) -Zofran and Phenergan for N/V -Morphine / Dilaudid for pain for severe pain. [place] for moderate pain. -Consulted GI will follow recs and Will need outpatient f/u with GI. -Get colonoscopy 6 weeks after an episode of acute diverticulitis to r/o malignancy even if the patient has a colonoscopy and it?s not been up to ten years. -Trend WBC 17< 15 CT abd/Pelvis : ITS Impressions Abdomen/Pelvis CT 02/17/24 18:27 IMPRESSION: 1. Acute sigmoid diverticulosis. No perforation or abscess. Acute sigmoid diverticulosis. No perforation or abscess.There are scattered diverticula in the colon. There is wall thickening of the sigmoid colon with surrounding fat stranding, consistent with diverticulitis Subjective Date/time seen: 02/18/24 10:10 Interval history: The patient was examined at the bedside and and reports of left lower quadrant pain. Patient reports he was admitted for the same issue last year and was medically managed. Patient reports of undergoing colonoscopy 5 years ago but does not remember the results. During the current admission patient has a WBC of 17 which has been reduced t0 15. Patient is currently started on metronidazole and ciprofloxacin and GI is consulted for continuity of care and if he warrants a colonoscopy in future. Review of Systems Review of Systems: left lower quadrant pain, constipation. Exam Narrative: patient is laying in a stretcher Const: General: comfortable, no acute distress, well developed, alert, awake, ill appearing acutely and average body habitus Nutritional Appearance: average body habitus Orientation/consciousness: patient oriented x3 HENMT: Head: normal to inspection, normocephalic and atraumatic Ears: hearing grossly normal bilaterally Face/Nose/Sinus: normal facial exam Face and sinus: normal facial exam Eyes: General: appearance normal, both eyes and all related structures Pupils: Equal, round and reactive pupils present EOM: EOMs intact bilaterally Neck: Neck: full ROM, no lymphadenopathy and no JVD Thyroid: thyroid normal Lymphatic: no lymphadenopathy noted Resp: Effort & Inspection: normal respiratory effort and able to speak in complete sentences Auscultation: clear to auscultation bilaterally Cardio: Jugular venous distension: no JVD Rate: regular rate Rhythm: regular rhythm Heart sounds: S1 normal heart sound present and S2 normal heart sound present GI: Inspection: distended : General: Yes deferred Skin: Rashes: no rashes Wounds: no wounds Neuro: General: patient oriented x3 and CN's II-XI intact bilaterally Cranial nerves: Yes CN's II-XII intact bilaterally and Yes Equal, round and reactive pupils present Cognition (Neuro): normal cognition Speech: normal speech Gait exam (Neuro): Normal gait present Motor exam (neuro): 5/5 motor strength present throughout
[2024-02-18 10:46] LABS: Hemoglobin 17.8 g/dL (14.0-18.0); Mean Corpuscular HGB Conc 33.6 g/dl (32-36); Mean Corpuscular Hemoglobin 33.7 pg (26-34); Mean Corpuscular Volume 100.4 fl (80-100); Mean Platelet Volume 8.8 fl (7.4-10.4); Platelet Count Result 279 k/mm3 (150-375); Red Blood Count 5.28 M/mm3 (4.6-6.20); Red Cell Distribution Width 13.1 % (11.5-14.5); White Blood Count 15.5 K/mm3 (4.5-10.0)
[2024-02-18 11:11] LABS: Alanine Aminotransferase 132 U/L (6-50); Albumin Level 4.3 g/dL (3.5-5.1); Alkaline Phosphatase 77 U/L (38-126); Anion Gap 11 mmol/L (4-12); Aspartate Amino Transferase 91 U/L (17-59); Bilirubin,Total 1.7 mg/dL (0.2-1.3); Blood Urea Nitrogen 15 mg/dL (9-20); Calcium 9.2 mg/dL (8.4-10.2); Carbon Dioxide 26 mmol/L (22-30); Chloride 97 mmol/L (98-107); Estimated CRCL calculation 88 ml/min; Estimated Glomerular Filt Rate > 60; Glucose 101 mg/dL (65-110); Potassium 4.5 mmol/L (3.4-5.0); Sodium 134 mmol/L (137-145)
[2024-02-18] MEDS: metroNIDAZOLE 500 MG/ISO 100ML 500 MG/100 ML BAG 100 MG IVPB ×2 (12:49→20:06)
[2024-02-18] MEDS: PANTOPRAZOLE SODIUM IV 40 MG VIAL IV PUSH (12:49)
[2024-02-18] MEDS: CIPROFLOXACIN 400 MG/D5W 200ML 200 ML 200 MG IVPB ×2 (12:51→21:45)
[2024-02-18 14:00] VITALS: BP 125/68; PULSE 79; RESP 18; TEMP 36.1; O2SAT 95
[2024-02-18 17:08] LABS: Glucose Point of Care 108 mg/dl (65-105)
[2024-02-18 20:00] VITALS: PULSE 79; RESP 18; O2SAT 93
[2024-02-18 22:00] VITALS: BP 109/89; PULSE 79; RESP 18; TEMP 36.8; O2SAT 93
[2024-02-19] MEDS: HYDROmorphone HCL INJ (*CRX) 1 MG/ML SYR IV PUSH ×8 (01:19→23:34)
[2024-02-19] MEDS: metroNIDAZOLE 500 MG/ISO 100ML 500 MG/100 ML BAG 100 MG IVPB ×2 (05:06→13:17)
[2024-02-19 05:52] VITALS: BP 113/85; PULSE 77; RESP 16; TEMP 36.3; O2SAT 95
[2024-02-19 06:47] LABS: Hematocrit 53.3 % (42.0-52.0); Hemoglobin 18.1 g/dL (14.0-18.0); Mean Corpuscular Hemoglobin 34.5 pg (26-34); Mean Corpuscular Volume 101.5 fl (80-100); Mean Platelet Volume 9.1 fl (7.4-10.4); Platelet Count Result 262 k/mm3 (150-375); Red Blood Count 5.25 M/mm3 (4.6-6.20); White Blood Count 13.6 K/mm3 (4.5-10.0)
[2024-02-19 06:58] LABS: Alanine Aminotransferase 136 U/L (6-50); Albumin Level 4.5 g/dL (3.5-5.1); Alkaline Phosphatase 77 U/L (38-126); Anion Gap 12 mmol/L (4-12); Aspartate Amino Transferase 93 U/L (17-59); Bilirubin,Total 1.6 mg/dL (0.2-1.3); Blood Urea Nitrogen 13 mg/dL (9-20); Calcium 9.1 mg/dL (8.4-10.2); Carbon Dioxide 29 mmol/L (22-30); Chloride 93 mmol/L (98-107); Estimated CRCL calculation 88 ml/min; Estimated Glomerular Filt Rate > 60; Glucose 91 mg/dL (65-110); Potassium 4.2 mmol/L (3.4-5.0); Sodium 134 mmol/L (137-145)
[2024-02-19 08:00] VITALS: PULSE 77; RESP 16; O2SAT 95
--- NOTE | 2024-02-19 08:15 | WPDGICN ---
Assessment and Plan Assessment and plan (1) Transaminitis: Code(s): R74.01 - Elevation of levels of liver transaminase levels Status: Acute (2) Sigmoid diverticulitis: Code(s): K57.32 - Diverticulitis of large intestine without perforation or abscess without bleeding Status: Acute (3) LLQ abdominal pain: Code(s): R10.32 - Left lower quadrant pain Status: Acute (4) Alcohol abuse: Code(s): F10.10 - Alcohol abuse, uncomplicated Status: Chronic (5) Gallstones: Code(s): K80.20 - Calculus of gallbladder without cholecystitis without obstruction Status: Acute (6) Leukocytosis: Code(s): D72.829 - Elevated white blood cell count, unspecified Status: Acute (7) Essential hypertension: Code(s): I10 - Essential (primary) hypertension Status: Acute Plan 1. LLQ Abdominal Pain / Acute Sigmoid Diverticulitis: Admitted with uncomplicated acute sigmoid diverticulitis with no abscess or perforation, WBC was 18 on admission and down trending to WBC 13 this AM. Still reporting 10/10 pain in LLQ and with pain medication, it brings it down to 5/10. He has history March 2023 with sigmoid diverticulitis with small intramural abscess of the sigmoid colon with small abscess and microperforation that resolved medically. He is on Cipro and Flagyl and receiving hydromorphone for pain currently. He appears uncomfortable and abdomen is distended, he is afebrile and no evidence of tachycardia or hypotension. I do believe he needs close monitoring for complications. - Continue IV Cipro and Flagyl - Supportive tx with pain control - He will need outpatient colonoscopy 6-8 weeks after discharge - Keep NPO till pain starts to improve - Consider repeat imaging if WBC worsens or has an acute abdomen - Surgical consult recommended incase patient fails to respond with antibiotics. 2. Chronic Alcohol Use/Elevated Liver Enzymes: Has total bilirubin 1.6, AST 93, ALT 136. Had an abdominal ultrasound 02/2023 with normal appearing liver. Reports drinking alcohol whatever it takes to relieve the pain sometimes related to chronic back pain. He does report feeling sweaty and hot and feeling fevers but he has been a afebrile this admission, consider this related to alcohol detox. -likely acute elevation is secondary to infection along with underlying chronic alcohol abuse. -will rule out other liver etiologies with a complete liver workup -Trend LFTs. -CIWA protocol is recommended -Thiamine and folic acid recommended 3. Gallstones: CT of the abdomen pelvis with gallstones. He is asymptomatic in regards to this. -monitor Thank you very much for allowing me to share in the care of this very nice patient. This report may have been done utilizing a voice recognition system. Attempts have been made to correct errors. However, there may be uncorrected grammatical, spelling, and recognition errors present. GI Consult Note Consult date/time: 02/19/24 08:15 Reason for consult: diverticulitis HPI: This is a pleasant 58 year old male with a past medical surgical history of diverticulitis March 2023 with abscess and microperforation, hypertension, chronic back pain, and surgical history including a lumbar spinal fusion. He presented to the ER on 02/17/2024 with complaints of LLQ abdominal pain. GI consulted for diverticulitis. He was admitted March 2023 with sigmoid diverticulitis with small intramural abscess of the sigmoid colon with small abscess and contained focus of free air consistent with microperforation, this resolved with IV antibiotics and was seen by surgery. This admission he reports left lower quadrant abdominal pain for 5-6 days prior to presenting to the ER. He reports running fevers at home but unable to quantify a temperature. He had some nausea and vomiting with this. Currently he reports the pain is a 10/10 right now and has to have a BM and urinate-he states last
--- NOTE | 2024-02-19 08:25 | WPDGICN ---
GI Consult Note Consult date/time: 02/19/24 08:25 HPI: Everardo Sumner is a 58 year old male PMF Past Medical History Medical History Chronic lumbar pain Hypertension Nicotine dependence, cigarettes, with other nicotine-induced disorders Surgical History Surgical History History of lumbar spinal fusion Family History Family History Other Unknown family medical history Social History Social History Smoking packs per day: 1 Smoking cigarettes per day: 20.0 Smoking status: Current every day smoker Tobacco type: cigarettes Alcohol intake: current Drinks per week: 49 Substance use: current Substance use type: marijuana Other substance usage details: 3 TIMES PER DAY Do You Feel Safe in your Home?: Yes Lack of Transportation: No Lack of Food: Often True Current Housing: I Have Housing Concerned About Future Housing: No Difficulty Paying Gas/Electric Bills: No Difficulty Paying for Meds: No Currently Unemployed: No Education: Grade School Difficulty w/ Childcare or Family Care: No Spiritual care concerns: No Meds Home Medications and Allergies Home Medications Medication Instructions Recorded Confirmed Type albuterol sulfate 90 mcg/actuation 2 puff inhalation Q4-6H PRN 03/23/23 02/17/24 History aerosol inhaler Shortness Of Breath Or Wheezing lisinopril 10 mg tablet 20 mg PO DAILY 03/23/23 02/17/24 History Allergies Allergy/AdvReac Type Severity Reaction Status Date / Time ampicillin AdvReac Unknown Verified 02/17/24 14:58 Penicillins AdvReac Unknown Verified 02/17/24 14:58 Vital Signs Vital Signs - 24 hr 02/18/24 14:00 02/18/24 22:00 02/18/24 20:00 Temperature 96.9 F L 98.3 F Pulse Rate 79 79 79 Respiratory Rate 18 18 18 Blood Pressure 125/68 109/89 Pulse Oximetry 95 93 93 Oxygen Delivery Room Air Fraction of Inspired Oxygen 02/19/24 05:52 Temperature 97.3 F L Pulse Rate 77 Respiratory Rate 16 Blood Pressure 113/85 Pulse Oximetry 95 Oxygen Delivery Fraction of Inspired Oxygen Results Labs 02/19/24 06:08 02/19/24 06:08 Labs: Short CBC 02/18/24 02/19/24 Range/Units 10:37 06:08 WBC 15.5 H 13.6 H (4.5-10.0) K/mm3 Hgb 17.8 18.1 H (14.0-18.0) g/dL Hct 53.0 H 53.3 H (42.0-52.0) % Plt Count 279 262 (150-375) k/mm3 BMP 02/18/24 02/19/24 10:37 06:08 Sodium 134 L 134 L Potassium 4.5 4.2 Chloride 97 L 93 L Carbon Dioxide 26 29 BUN 15 D 13 Creatinine 0.90 0.90 Glucose 101 91 Calcium 9.2 9.1 Liver Function 02/18/24 02/19/24 Range/Units 10:37 06:08 Total Bilirubin 1.7 H 1.6 H (0.2-1.3) mg/dL AST 91 H 93 H (17-59) U/L ALT 132 H 136 H (6-50) U/L Alkaline Phosphatase 77 77 (38-126) U/L Albumin 4.3 4.5 (3.5-5.1) g/dL
[2024-02-19 09:45] LABS: Iron 55 ug/dL (49-181)
[2024-02-19] MEDS: PANTOPRAZOLE SODIUM IV 40 MG VIAL IV PUSH (09:49)
[2024-02-19] MEDS: CIPROFLOXACIN 400 MG/D5W 200ML 200 ML 200 MG IVPB (09:50)
[2024-02-19] MEDS: NICOTINE (*PBKC) 21 MG PATCH 1 PATCH TRANSDERM (09:50)
[2024-02-19 09:51] LABS: Alanine Aminotransferase 136 U/L (6-50); Albumin Level 4.4 g/dL (3.5-5.1); Alkaline Phosphatase 80 U/L (38-126); Aspartate Amino Transferase 97 U/L (17-59); Bilirubin,Total 1.5 mg/dL (0.2-1.3)
[2024-02-19 09:55] LABS: Percent Iron Saturation 15 % (20-50)
[2024-02-19 10:16] LABS: Hepatitis B Surface Antigen Negative (Negative)
[2024-02-19 10:22] LABS: HAV RESULT Negative (Negative); Hepatitis B Core IgM Result Negative (Negative)
[2024-02-19 10:33] LABS: Hepatitis C Virus Antibody Negative (Negative)
[2024-02-19 10:48] LABS: Prothrombin Time 13.5 Seconds (11.1-14.7)
[2024-02-19 10:55] LABS: Folic Acid 4.1 ng/mL (2.76->20)
[2024-02-19] MEDS: LACTATED RINGERS 1,000 ML 999 ML IV CONT (11:25)
[2024-02-19] MEDS: DEXTROSE 5%/LACTATED RINGERS 1,000 ML 120 ML IV CONT ×2 (13:15→23:34)
[2024-02-19] MEDS: PIPERACILLN/TAZ 3.375GM/NS50ML 3.375 GM/50 ML BAG IVPB ×3 (13:17→23:34)
[2024-02-19 14:00] VITALS: BP 135/70; PULSE 81; RESP 18; TEMP 36.7; O2SAT 100
--- NOTE | 2024-02-19 16:04 | PM.IMPN ---
Progress Note: A&P Assessment and Plan (1) Abdominal pain: Qualifiers: Abdominal location: left lower quadrant Qualified Code(s): R10.32 - Left lower quadrant pain Code(s): R10.9 - Unspecified abdominal pain Status: Acute Assessment and Plan: admit to regular medical floor (2) Sigmoid diverticulitis: Code(s): K57.32 - Diverticulitis of large intestine without perforation or abscess without bleeding Status: Acute (3) Transaminitis: Code(s): R74.01 - Elevation of levels of liver transaminase levels Status: Acute (4) Alcohol abuse: Code(s): F10.10 - Alcohol abuse, uncomplicated Status: Chronic (5) COPD (chronic obstructive pulmonary disease): Code(s): J44.9 - Chronic obstructive pulmonary disease, unspecified Status: Chronic Assessment and Plan: Cont home meds (6) Tobacco dependence: Code(s): F17.200 - Nicotine dependence, unspecified, uncomplicated Status: Acute Plan Diverticulitis/Diverticulosis: -discontinue Metronidazole and Ciprofloxacin (to cover anaerobes + GNR) and started Zosyn -Zofran and Phenergan for N/V -Morphine / Dilaudid for pain for severe pain. [place] for moderate pain. -Consulted GI will follow recs and Will need outpatient f/u with GI. -Get colonoscopy 6 weeks after an episode of acute diverticulitis to r/o malignancy even if the patient has a colonoscopy and it?s not been up to ten years. -Trend WBC 17< 15 CT abd/Pelvis : ITS Impressions Abdomen/Pelvis CT 02/17/24 18:27 IMPRESSION: 1. Acute sigmoid diverticulosis. No perforation or abscess. Acute sigmoid diverticulosis. No perforation or abscess.There are scattered diverticula in the colon. There is wall thickening of the sigmoid colon with surrounding fat stranding, consistent with diverticulitis Subjective Date/time seen: 02/19/24 16:04 Interval history: The patient was examined at the bedside and and still reports of left lower quadrant pain. Patient complains of intensive itching after starting the antibiotic. So today the patient antibiotic has been changed from ciprofloxacin and metronidazole to Zosyn. Patient is still in the NPO. WBC has been decreased from 15.5-13.6. Review of Systems Review of Systems: left lower quadrant pain, constipation. Exam Narrative: patient is laying in a stretcher Const: General: comfortable, no acute distress, well developed, alert, awake, ill appearing acutely and average body habitus Nutritional Appearance: average body habitus Orientation/consciousness: patient oriented x3 HENMT: Head: normal to inspection, normocephalic and atraumatic Ears: hearing grossly normal bilaterally Face/Nose/Sinus: normal facial exam Face and sinus: normal facial exam Eyes: General: appearance normal, both eyes and all related structures Pupils: Equal, round and reactive pupils present EOM: EOMs intact bilaterally Neck: Neck: full ROM, no lymphadenopathy and no JVD Thyroid: thyroid normal Lymphatic: no lymphadenopathy noted Resp: Effort & Inspection: normal respiratory effort and able to speak in complete sentences Auscultation: clear to auscultation bilaterally Cardio: Jugular venous distension: no JVD Rate: regular rate Rhythm: regular rhythm Heart sounds: S1 normal heart sound present and S2 normal heart sound present GI: Inspection: distended : General: Yes deferred Skin: Rashes: no rashes Wounds: no wounds Neuro: General: patient oriented x3 and CN's II-XI intact bilaterally Cranial nerves: Yes CN's II-XII intact bilaterally and Yes Equal, round and reactive pupils present Cognition (Neuro): normal cognition Speech: normal speech Gait exam (Neuro): Normal gait present Motor exam (neuro): 5/5 motor strength present throughout Extrem: General: normal to inspection, full ROM, no joint enlargement and no pedal edema Objective Data Vital Signs Vital Signs: Vital Signs
--- NOTE | 2024-02-19 19:49 | WPDCN ---
Assessment and Plan Assessment and plan (1) Sigmoid diverticulitis: Code(s): K57.32 - Diverticulitis of large intestine without perforation or abscess without bleeding Status: Acute Assessment and Plan: Patient has had a 2nd episode of acute sigmoid diverticulitis in the past 12 months. This time he does not have any evidence for micro perforation or abscess. Continue non operative management for now. Bowel rest and IV antibiotics. Serial abdominal exams. His white blood count is already decreasing and his abdomen is tender but no evidence of acute surgical abdomen. Will discuss further with him whether he should have an elective sigmoid resection once he has recovered. No acute surgical abdomen at this time. Will follow. HPI Data of Consult Date/Time: 02/19/24 19:49 Requesting Physician: Joyce Hunt MD Primary Care Provider: Mesfin Cortes MD Consult Narrative Reason for consult: Recurrent acute sigmoid diverticulitis Narrative: Everardo Sumner is a 58 year old male admitted to the hospital recurrent sigmoid diverticulitis. He had diverticulitis last year with a intramural abscess and microperforation. He recovered well with non operative management. He has been doing well until last for 5 days we started having left lower quadrant pain again which was similar to his previous pain. When he presented to the emergency room he had an elevated white blood cell count of 17,000. He was normotensive and not tachycardic. CT scan abdomen pelvis was performed showing inflammation and thickening of the proximal mid sigmoid colon. No perforation or abscess was seen. He was admitted to the hospital started on IV antibiotics. He has been kept NPO. He has been on IV antibiotics for about 36hours now. His white blood count is decreased down to 13,600. He remains afebrile and normotensive. Review of Systems Review of Systems: The remainder of the review of systems to include constitutional, HEENT, cardiovascular, respiratory, GI, , integumentary, musculoskeletal, endocrine, immunologic, hematologic, psychiatric, and neurologic are all negative except for which is mentioned above in the HPI. [facility] Past Medical History Medical History Chronic lumbar pain Hypertension Nicotine dependence, cigarettes, with other nicotine-induced disorders Surgical History Surgical History History of lumbar spinal fusion Family History Family History Other Unknown family medical history Social History Social History Smoking packs per day: 1 Smoking cigarettes per day: 20.0 Smoking status: Current every day smoker Tobacco type: cigarettes Alcohol intake: current Drinks per week: 49 Substance use: current Substance use type: marijuana Other substance usage details: 3 TIMES PER DAY Do You Feel Safe in your Home?: Yes Lack of Transportation: No Lack of Food: Often True Current Housing: I Have Housing Concerned About Future Housing: No Difficulty Paying Gas/Electric Bills: No Difficulty Paying for Meds: No Currently Unemployed: No Education: Grade School Difficulty w/ Childcare or Family Care: No Spiritual care concerns: No Meds Home Medications and Allergies Home Medications Medication Instructions Recorded Confirmed Type albuterol sulfate 90 mcg/actuation 2 puff inhalation Q4-6H PRN 03/23/23 02/17/24 History aerosol inhaler Shortness Of Breath Or Wheezing lisinopril 10 mg tablet 20 mg PO DAILY 03/23/23 02/17/24 History Allergies Allergy/AdvReac Type Severity Reaction Status Date / Time ampicillin AdvReac Unknown Verified 02/17/24 14:58 Penicillins AdvReac Unknown Verified 02/17/24 14:58 Vital Signs Vital Signs - 24 hr 02/18/24
[2024-02-19 21:02] VITALS: BP 148/87; PULSE 72; RESP 18; TEMP 36.5; O2SAT 100
[2024-02-19 22:13] VITALS: O2SAT 100
[2024-02-20] MEDS: HYDROmorphone HCL INJ (*CRX) 1 MG/ML SYR IV PUSH ×5 (03:07→23:28)
[2024-02-20 05:27] VITALS: BP 126/69; PULSE 67; RESP 18; TEMP 36.3; O2SAT 97
[2024-02-20] MEDS: PIPERACILLN/TAZ 3.375GM/NS50ML 3.375 GM/50 ML BAG IVPB ×4 (05:58→23:28)
[2024-02-20 06:35] LABS: Basophils Absolute Auto 0.1 K/mm3 (0.0-0.1); Basophils Percent Auto 0.8 % (0.2-1.2); Eosinophils Absolute Auto 0.5 K/mm3 (0-0.3); Eosinophils Percent Auto 4.1 % (0-4.4); Hemoglobin 16.8 g/dL (14.0-18.0); Immature Granulocyte Absolute 0.05 K/mm3 (0.00-0.031); Immature Granulocyte Percent A 0.5 % (0-0.5); Lymphocytes Absolute Auto 2.22 K/mm3 (0.9-3.2); Lymphocytes Percent Auto 20.1 % (18.3-44.2); Mean Corpuscular HGB Conc 33.6 g/dl (32-36); Mean Corpuscular Hemoglobin 33.5 pg (26-34); Mean Corpuscular Volume 99.8 fl (80-100); Mean Platelet Volume 9.1 fl (7.4-10.4); Monocytes Absolute Auto 0.9 K/mm3 (0.1-0.6); Monocytes Percent Auto 7.9 % (2.6-8.5); Neutrophils Absolute Auto 7.3 K/mm3 (1.3-6.7); Neutrophils Percent Auto 66.6 % (45.5-73.1); Platelet Count Result 268 k/mm3 (150-375); Red Blood Count 5.01 M/mm3 (4.6-6.20); Red Cell Distribution Width 12.5 % (11.5-14.5)
[2024-02-20 06:54] LABS: Alanine Aminotransferase 165 U/L (6-50); Albumin Level 3.9 g/dL (3.5-5.1); Alkaline Phosphatase 65 U/L (38-126); Anion Gap 8 mmol/L (4-12); Aspartate Amino Transferase 165 U/L (17-59); Bilirubin,Total 1.1 mg/dL (0.2-1.3); Blood Urea Nitrogen 10 mg/dL (9-20); Calcium 9.2 mg/dL (8.4-10.2); Carbon Dioxide 30 mmol/L (22-30); Chloride 98 mmol/L (98-107); Estimated CRCL calculation 88 ml/min; Estimated Glomerular Filt Rate > 60; Glucose 90 mg/dL (65-110); Potassium 3.9 mmol/L (3.4-5.0); Sodium 136 mmol/L (137-145)
[2024-02-20 08:00] VITALS: PULSE 67; RESP 18; O2SAT 97
[2024-02-20] MEDS: DEXTROSE 5%/LACTATED RINGERS 1,000 ML 120 ML IV CONT (09:32)
[2024-02-20] MEDS: NICOTINE (*PBKC) 21 MG PATCH 1 PATCH TRANSDERM (09:33)
[2024-02-20] MEDS: THIAMINE HCL 100 MG TABLET PO (09:33)
[2024-02-20] MEDS: FOLIC ACID 1 MG TABLET PO (09:33)
[2024-02-20] MEDS: PANTOPRAZOLE SODIUM IV 40 MG VIAL IV PUSH (09:33)
--- NOTE | 2024-02-20 12:31 | WPDPN ---
Progress Note: A&P Assessment and Plan (1) Sigmoid diverticulitis: Code(s): K57.32 - Diverticulitis of large intestine without perforation or abscess without bleeding Status: Acute Assessment and Plan: Patient continues to improve non operative management of his recurrent acute sigmoid diverticulitis. Continue IV antibiotics today. Can go ahead advanced to full liquids. Repeat white blood cell count tomorrow. Is still doing well tomorrow and white blood count is even lower neck advanced to low-fiber diet and then hopefully discharge home tomorrow on 10 to 14 more days of oral antibiotics. Subjective Date/time seen: 02/20/24 12:31 Interval history: Patient is feeling better today. Less left lower quadrant pain. Passing some flatus but no bowel movement yet. No fever. White blood count is down to 11,000. No tachycardia. Exam GI: Other: Abdomen is soft and nondistended. Has some very mild tenderness to palpation left lower quadrant. No guarding. Objective Data Vital Signs Vital Signs: Vital Signs - 24 hr 02/19/24 14:00 02/19/24 21:02 02/19/24 20:25 Temperature 36.7 C 36.5 C Pulse Rate 81 72 Respiratory Rate 18 18 Blood Pressure 135/70 148/87 H Pulse Oximetry 100 100 Oxygen Delivery Room Air Fraction of Inspired Oxygen 02/20/24 05:27 02/19/24 22:13 02/20/24 08:00 Temperature 36.3 C L Pulse Rate 67 67 Respiratory Rate 18 18 Blood Pressure 126/69 Pulse Oximetry 97 100 97 Oxygen Delivery Room Air Room Air Fraction of Inspired Oxygen 21 Intake/Output Intake/Output: Intake & Output 02/17/24 02/18/24 02/19/24 02/20/24 23:59 23:59 23:59 23:59 Intake Total 1100 1103 1250 1100 Output Total 400 1000 600 Balance 1100 703 250 500 Meds/Results Medications: Active Medications Generic Name Dose Route Start Last Admin Trade Name Freq PRN Reason Stop Dose Admin Albuterol 2 puff 02/18/24 02:16 Albuterol Sulfate (*Sp) Aerosol 1 Puff INHALATION Q4-6H PRN Shortness Of Breath Or Wheezing Folic Acid 1 mg 02/20/24 09:00 02/20/24 09:33 Folic Acid 1 Mg Tablet PO 1 mg DAILY JOSE Administration Hydromorphone HCl 1 mg 02/17/24 23:14 02/20/24 05:58 Hydromorphone Hcl Inj (*Crx) 1 Mg/Ml Syr IV PUSH 1 mg Q3H PRN Administration Pain Rated 7-10 Piperacillin/Tazobactam/Dextrose 3.375 gm in 50 mls @ 100 mls/hr 02/19/24 18:00 02/20/24 06:28 Zosyn 3.375 Gm/Ns 50 Ml IVPB Infused Q6H JOSE Infusion Dextrose/Lactated Ringer's 1,000 mls @ 120 mls/hr 02/19/24 11:15 02/20/24 10:37 Dextrose 5%/Lactated Ringers IV CONT Not Given .Q8H20M JOSE Nicotine 1 patch 02/17/24 22:50 02/20/24 09:33 Nicotine (*Pbkc) 21 Mg Patch TRANSDERM 1 patch DAILY JOSE Administration Pantoprazole Sodium 40 mg 02/18/24 11:00 02/20/24 09:33 Pantoprazole Sodium Iv 40 Mg Vial IV PUSH 40 mg QAM JOSE Administration Thiamine HCl 100 mg 02/20/24 09:00 02/20/24 09:33 Thiamine Hcl 100 Mg Tablet PO 100 mg QAM JOSE Administration Radiology Results: ITS Impressions Abdomen/Pelvis CT 02/17/24 18:27 IMPRESSION: 1. Acute sigmoid diverticulosis. No perforation or abscess. ADDENDUM: 02/18/24 1524 The impression should read, Acute sigmoid diverticulitis. No perforation or abscess. Labs Labs: Laboratory Results - last 24 hr 02/20/24 06:15 WBC 11.0 H RBC 5.01 Hgb 16.8 Hct 50.0 MCV 99.8 MCH 33.5 MCHC 33.6 RDW 12.5 Plt Count 268 MPV 9.1 Immature Gran % (Auto) 0.5 Neut % (Auto) 66.6 Lymph % (Auto) 20.1 [place] % (Auto) 7.9 Eos % (Auto) 4.1 Baso % (Auto) 0.8 Lymph # (Auto) 2.22 [place] # (Auto) 0.9 H Eos # (Auto) 0.5 H Baso # (Auto) 0.1 Abs Immat Gran (auto) 0.05 H Absolute Neuts (auto) 7.3 H Absolute Nucleated RBC 0.000 Nucleated RBC % 0.0 Sodium 136 L Potassium 3.9 Chloride 98 Carbon Dioxide 30 Anion Gap 8 BUN 10 Creatinine 0.90 Estim Creat Clear Calc 88
[2024-02-20 14:00] VITALS: BP 118/72; PULSE 72; RESP 18; TEMP 36.6; O2SAT 98
--- NOTE | 2024-02-20 15:43 | PM.IMPN ---
Progress Note: A&P Assessment and Plan (1) Abdominal pain: Qualifiers: Abdominal location: left lower quadrant Qualified Code(s): R10.32 - Left lower quadrant pain Code(s): R10.9 - Unspecified abdominal pain Status: Acute Assessment and Plan: admit to regular medical floor (2) Sigmoid diverticulitis: Code(s): K57.32 - Diverticulitis of large intestine without perforation or abscess without bleeding Status: Acute (3) Transaminitis: Code(s): R74.01 - Elevation of levels of liver transaminase levels Status: Acute (4) Alcohol abuse: Code(s): F10.10 - Alcohol abuse, uncomplicated Status: Chronic (5) COPD (chronic obstructive pulmonary disease): Code(s): J44.9 - Chronic obstructive pulmonary disease, unspecified Status: Chronic Assessment and Plan: Cont home meds (6) Tobacco dependence: Code(s): F17.200 - Nicotine dependence, unspecified, uncomplicated Status: Acute Plan Diverticulitis/Diverticulosis: -started on the clear liquid diet, will be advanced as tolerated -discontinue Metronidazole and Ciprofloxacin (to cover anaerobes + GNR) and started Zosyn -Zofran and Phenergan for N/V -Morphine / Dilaudid for pain for severe pain. Emery for moderate pain. -Consulted GI will follow recs and Will need outpatient f/u with GI. -Get colonoscopy 6 weeks after an episode of acute diverticulitis to r/o malignancy even if the patient has a colonoscopy and it?s not been up to ten years. -Trend WBC 17< 15 CT abd/Pelvis : ITS Impressions Abdomen/Pelvis CT 02/17/24 18:27 IMPRESSION: 1. Acute sigmoid diverticulosis. No perforation or abscess. Acute sigmoid diverticulosis. No perforation or abscess.There are scattered diverticula in the colon. There is wall thickening of the sigmoid colon with surrounding fat stranding, consistent with diverticulitis Subjective Date/time seen: 02/20/24 15:43 Interval history: Patient reports of less pain when compared to yesterday. Patient started on clear liquid diet and diet will be advanced as tolerated. Review of Systems Review of Systems: left lower quadrant pain, constipation. Exam Narrative: patient is laying in a stretcher Const: General: comfortable, no acute distress, well developed, alert, awake, ill appearing acutely and average body habitus Nutritional Appearance: average body habitus Orientation/consciousness: patient oriented x3 HENMT: Head: normal to inspection, normocephalic and atraumatic Ears: hearing grossly normal bilaterally Face/Nose/Sinus: normal facial exam Face and sinus: normal facial exam Eyes: General: appearance normal, both eyes and all related structures Pupils: Equal, round and reactive pupils present EOM: EOMs intact bilaterally Neck: Neck: full ROM, no lymphadenopathy and no JVD Thyroid: thyroid normal Lymphatic: no lymphadenopathy noted Resp: Effort & Inspection: normal respiratory effort and able to speak in complete sentences Auscultation: clear to auscultation bilaterally Cardio: Jugular venous distension: no JVD Rate: regular rate Rhythm: regular rhythm Heart sounds: S1 normal heart sound present and S2 normal heart sound present GI: Inspection: distended : General: Yes deferred Skin: Rashes: no rashes Wounds: no wounds Neuro: General: patient oriented x3 and CN's II-XI intact bilaterally Cranial nerves: Yes CN's II-XII intact bilaterally and Yes Equal, round and reactive pupils present Cognition (Neuro): normal cognition Speech: normal speech Gait exam (Neuro): Normal gait present Motor exam (neuro): 5/5 motor strength present throughout Extrem: General: normal to inspection, full ROM, no joint enlargement and no pedal edema Objective Data Vital Signs Vital Signs: Vital Signs - 24 hr 02/19/24 21:02 02/19/24 20:25 02/20/24 05:27 Temperature 97.7 F 97.4 F L Pulse Rate 72 67 Respiratory Rate 18
--- NOTE | 2024-02-20 17:17 | WPDGIPROGNO ---
Progress Note: A&P Assessment and Plan (1) Sigmoid diverticulitis: Code(s): K57.32 - Diverticulitis of large intestine without perforation or abscess without bleeding Status: Acute Assessment and Plan: much better and responding to iv abx surgery on board uncomplicated diverticulitis ok to advance diet probably colonoscopy in 8 weeks (2) Transaminitis: Code(s): R74.01 - Elevation of levels of liver transaminase levels Status: Acute Assessment and Plan: he drinks alcohol normalization of bili still elevated transaminases (3) LLQ abdominal pain: Code(s): R10.32 - Left lower quadrant pain Status: Acute (4) Leukocytosis: Code(s): D72.829 - Elevated white blood cell count, unspecified Status: Acute Assessment and Plan: trending down on iv abx (5) Alcohol abuse: Code(s): F10.10 - Alcohol abuse, uncomplicated Status: Chronic Subjective Date/time seen: 02/20/24 17:17 Interval history: much better, tolerating liquid diet had small BM he is comfortable and would like to eat more Review of Systems Review of Systems: All systems reviewed & are unremarkable except as noted in HPI and below Exam Const: General: comfortable and no acute distress HENMT: Face/Nose/Sinus: Normal nares present Eyes: General: appearance normal, both eyes and all related structures Neck: Neck: supple Resp: Auscultation: clear to auscultation bilaterally Cardio: Rate: regular rate Rhythm: regular rhythm GI: Inspection: non-distended GI Palp: Yes Soft to palpation, Yes Tenderness to palpation present (GI) (minimally ttp in llq, much better, no rebound) and No Guarding due to palpation present (GI) Auscultation: normal bowel sounds Skin: General skin exam: normal color Neuro: Speech: normal speech Motor exam (neuro): 5/5 motor strength present throughout Extrem: General: normal to inspection Psych: Mental Status: mental status grossly normal Objective Data Vital Signs Vital Signs: Vital Signs - 24 hr 02/19/24 21:02 02/19/24 20:25 02/20/24 05:27 Temperature 97.7 F 97.4 F L Pulse Rate 72 67 Respiratory Rate 18 18 Blood Pressure 148/87 H 126/69 Pulse Oximetry 100 97 Oxygen Delivery Room Air Fraction of Inspired Oxygen 02/19/24 22:13 02/20/24 08:00 02/20/24 14:00 Temperature 97.9 F Pulse Rate 67 72 Respiratory Rate 18 18 Blood Pressure 118/72 Pulse Oximetry 100 97 98 Oxygen Delivery Room Air Room Air Fraction of Inspired Oxygen 21 Intake/Output Intake/Output: Intake & Output 02/17/24 02/18/24 02/19/24 02/20/24 23:59 23:59 23:59 23:59 Intake Total 1100 1103 1250 1700 Output Total 400 1000 600 Balance 1100 295 342 7306 Meds/Results Medications: Active Medications Generic Name Dose Route Start Last Admin Trade Name Freq PRN Reason Stop Dose Admin Albuterol 2 puff 02/18/24 02:16 Albuterol Sulfate (*Sp) Aerosol 1 Puff INHALATION Q4-6H PRN Shortness Of Breath Or Wheezing Folic Acid 1 mg 02/20/24 09:00 02/20/24 09:33 Folic Acid 1 Mg Tablet PO 1 mg DAILY JOSE Administration Hydromorphone HCl 1 mg 02/17/24 23:14 02/20/24 16:48 Hydromorphone Hcl Inj (*Crx) 1 Mg/Ml Syr IV PUSH 1 mg Q3H PRN Administration Pain Rated 7-10 Piperacillin/Tazobactam/Dextrose 3.375 gm in 50 mls @ 100 mls/hr 02/19/24 18:00 02/20/24 13:04 Zosyn 3.375 Gm/Ns 50 Ml IVPB 100 mls/hr Q6H JOSE Administration Dextrose/Lactated Ringer's 1,000 mls @ 90 mls/hr 02/19/24 11:15 02/20/24 10:37 Dextrose 5%/Lactated Ringers IV CONT Not Given .Q11H7M JOSE Nicotine 1 patch 02/17/24 22:50 02/20/24 09:33 Nicotine (*Pbkc) 21 Mg Patch TRANSDERM 1 patch DAILY JOSE Administration Pantoprazole Sodium 40 mg 02/18/24 11:00 02/20/24 09:33 Pantoprazole Sodium Iv 40 Mg Vial IV PUSH 40 mg QAM JOSE Administration Thiamine HCl 100 mg 02/20/24 09:00 02/20/24 09:33
[2024-02-20] MEDS: DEXTROSE 5%/LACTATED RINGERS 1,000 ML 90 ML IV CONT (20:02)
[2024-02-20 21:15] VITALS: BP 148/84; PULSE 65; RESP 13; TEMP 36.4; O2SAT 98
[2024-02-21] MEDS: HYDROmorphone HCL INJ (*CRX) 1 MG/ML SYR IV PUSH ×2 (03:36→06:38)
[2024-02-21] MEDS: PIPERACILLN/TAZ 3.375GM/NS50ML 3.375 GM/50 ML BAG IVPB (05:33)
[2024-02-21] MEDS: DEXTROSE 5%/LACTATED RINGERS 1,000 ML 90 ML IV CONT (05:33)
[2024-02-21 05:54] VITALS: BP 120/65; PULSE 64; RESP 12; TEMP 36.3; O2SAT 95
[2024-02-21 06:59] LABS: Basophils Absolute Auto 0.1 K/mm3 (0.0-0.1); Basophils Percent Auto 0.9 % (0.2-1.2); Eosinophils Absolute Auto 0.7 K/mm3 (0-0.3); Eosinophils Percent Auto 4.8 % (0-4.4); Hematocrit 52.4 % (42.0-52.0); Hemoglobin 17.9 g/dL (14.0-18.0); Immature Granulocyte Absolute 0.07 K/mm3 (0.00-0.031); Immature Granulocyte Percent A 0.5 % (0-0.5); Lymphocytes Percent Auto 25.3 % (18.3-44.2); Mean Corpuscular HGB Conc 34.2 g/dl (32-36); Mean Corpuscular Volume 99.4 fl (80-100); Mean Platelet Volume 9.1 fl (7.4-10.4); Monocytes Absolute Auto 1.1 K/mm3 (0.1-0.6); Monocytes Percent Auto 8.3 % (2.6-8.5); Neutrophils Absolute Auto 8.1 K/mm3 (1.3-6.7); Neutrophils Percent Auto 60.2 % (45.5-73.1); Platelet Count Result 348 k/mm3 (150-375); Red Blood Count 5.27 M/mm3 (4.6-6.20); Red Cell Distribution Width 12.5 % (11.5-14.5); White Blood Count 13.5 K/mm3 (4.5-10.0)
[2024-02-21] MEDS: THIAMINE HCL 100 MG TABLET PO (08:32)
[2024-02-21] MEDS: PANTOPRAZOLE SODIUM IV 40 MG VIAL IV PUSH (08:32)
[2024-02-21] MEDS: FOLIC ACID 1 MG TABLET PO (08:32)
[2024-02-21] MEDS: NICOTINE (*PBKC) 21 MG PATCH 1 PATCH TRANSDERM (08:33)
--- NOTE | 2024-02-21 10:26 | PM.DS ---
DS: Admitting Diagnosis Discharge Date 02/21/2024 Admitting Diagnosis Diverticultis DS: Summary Hospital Course Hospital Course: This is a 58-year-old male with past medical history significant for tobacco dependence, alcohol dependence, COPD/ emphysema, patient smokes a pack of cigarettes daily. Presents to the emergency room due to left lower quadrant pain for several days constipation nausea vomiting poor per orally intake. Patient tried Dulcolax with no relief of symptoms. Denies hematemesis, coffee-ground emesis, bright red blood per rectum, melena, weight loss. Preliminary workup was significant for CT of abdomen and pelvis with sigmoid diverticulitis. Surgery was consulted and recommended medical management. GI was consulted who agrees on continuing the antibiotics and advance the diet as tolerated. Patient tolerated the liquid diet and regular without any incident. Today consulted with GI who agrees the patient to be discharged. Patient with diabetes center with ofloxacin and metronidazole which he can take for 10 days and see his primary care physician and case work aide within a week upon discharge. Patient eventually will need a colonoscopy and a close follow-up with a case work aide in the future. Status at Discharge Cognitive/behavioral status at discharge: Stable Time Spent with Patient Time attestation: Total time spent providing and/or coordinating discharge services: 45 mins Exam Narrative: patient is laying in a stretcher Const: General: comfortable, no acute distress, well developed, alert, awake, ill appearing acutely and average body habitus Nutritional Appearance: average body habitus Orientation/consciousness: patient oriented x3 HENMT: Head: normal to inspection, normocephalic and atraumatic Ears: hearing grossly normal bilaterally Face/Nose/Sinus: normal facial exam Face and sinus: normal facial exam Eyes: General: appearance normal, both eyes and all related structures Pupils: Equal, round and reactive pupils present EOM: EOMs intact bilaterally Neck: Neck: full ROM, no lymphadenopathy and no JVD Thyroid: thyroid normal Lymphatic: no lymphadenopathy noted Resp: Effort & Inspection: normal respiratory effort and able to speak in complete sentences Auscultation: clear to auscultation bilaterally Cardio: Jugular venous distension: no JVD Rate: regular rate Rhythm: regular rhythm Heart sounds: S1 normal heart sound present and S2 normal heart sound present GI: Inspection: distended : General: Yes deferred Skin: Rashes: no rashes Wounds: no wounds Neuro: General: patient oriented x3 and CN's II-XI intact bilaterally Cranial nerves: Yes CN's II-XII intact bilaterally and Yes Equal, round and reactive pupils present Cognition (Neuro): normal cognition Speech: normal speech Gait exam (Neuro): Normal gait present Motor exam (neuro): 5/5 motor strength present throughout Extrem: General: normal to inspection, full ROM, no joint enlargement and no pedal edema DS: Data Data Completed and Pending Labs on day of discharge: Labs from last 24 hours 02/21/24 06:39 WBC 13.5 H RBC 5.27 Hgb 17.9 Hct 52.4 H MCV 99.4 MCH 34.0 MCHC 34.2 RDW 12.5 Plt Count 348 MPV 9.1 Immature Gran % (Auto) 0.5 Neut % (Auto) 60.2 Lymph % (Auto) 25.3 [place]cdowell % (Auto) 8.3 Eos % (Auto) 4.8 H Baso % (Auto) 0.9 Lymph # (Auto) 3.40 H Mcdowell # (Auto) 1.1 H Eos # (Auto) 0.7 H Baso # (Auto) 0.1 Abs Immat Gran (auto) 0.07 H Absolute Neuts (auto) 8.1 H Absolute Nucleated RBC 0.000 Nucleated RBC % 0.0 Imaging Radiologist's impression: ITS Impressions Abdomen/Pelvis CT 02/17/24 18:27 IMPRESSION: 1. Acute sigmoid diverticulosis. No perforation or abscess. ADDENDUM: 02/18/24 1524 The impression should read, Acute sigmoid diverticulitis. No perforation or abscess. Discharge Plan Discharge Attending physician on discharge: Timi Solis
--- NOTE | 2024-02-21 17:20 | WPDGIPROGNO ---
Progress Note: A&P Assessment and Plan (1) Sigmoid diverticulitis: Code(s): K57.32 - Diverticulitis of large intestine without perforation or abscess without bleeding Status: Acute Assessment and Plan: uncomplicated diverticulitis, he is going home today and will complete oral abx will set up colonoscopy in 8 weeks (2) Transaminitis: Code(s): R74.01 - Elevation of levels of liver transaminase levels Status: Acute Assessment and Plan: he drinks alcohol he can follow-up in office (3) LLQ abdominal pain: Code(s): R10.32 - Left lower quadrant pain Status: Acute (4) Leukocytosis: Code(s): D72.829 - Elevated white blood cell count, unspecified Status: Acute Assessment and Plan: trending down on abx (5) Alcohol abuse: Code(s): F10.10 - Alcohol abuse, uncomplicated Status: Chronic Subjective Date/time seen: 02/21/24 12:10 Interval history: doing great, pain almost gone and eating going home today Review of Systems Review of Systems: All systems reviewed & are unremarkable except as noted in HPI and below Exam Const: General: comfortable and no acute distress HENMT: Face/Nose/Sinus: Normal nares present Eyes: General: appearance normal, both eyes and all related structures Neck: Neck: no JVD Resp: Auscultation: clear to auscultation bilaterally Cardio: Rate: regular rate Rhythm: regular rhythm GI: Inspection: non-distended GI Palp: Yes Soft to palpation and No Tenderness to palpation present (GI) Auscultation: normal bowel sounds Skin: General skin exam: normal color Neuro: General: gait normal Speech: normal speech Extrem: General: normal to inspection Psych: Mental Status: mental status grossly normal Objective Data Vital Signs Vital Signs: Vital Signs - 24 hr 02/20/24 20:00 02/20/24 21:15 02/21/24 05:54 Temperature 97.6 F 97.3 F L Pulse Rate 65 64 Respiratory Rate 13 12 Blood Pressure 148/84 H 120/65 Pulse Oximetry 98 95 Oxygen Delivery Room Air 02/21/24 08:32 Temperature Pulse Rate Respiratory Rate Blood Pressure Pulse Oximetry Oxygen Delivery Room Air Intake/Output Intake/Output: Intake & Output 08/27/24 08/28/24 08/29/24 08/30/24 23:59 23:59 23:59 23:59 Intake Total 1103 1250 3210 1406.5 Output Total 400 1000 600 500 Balance 199 795 0866 906.5 Meds/Results Radiology Results: ITS Impressions Abdomen/Pelvis CT 02/17/24 18:27 IMPRESSION: 1. Acute sigmoid diverticulosis. No perforation or abscess. ADDENDUM: 02/18/24 1524 The impression should read, Acute sigmoid diverticulitis. No perforation or abscess. Labs Labs: Laboratory Results - last 24 hr 02/19/24 02/21/24 08:58 06:39 WBC 13.5 H RBC 5.27 Hgb 17.9 Hct 52.4 H MCV 99.4 MCH 34.0 MCHC 34.2 RDW 12.5 Plt Count 348 MPV 9.1 Immature Gran % (Auto) 0.5 Neut % (Auto) 60.2 Lymph % (Auto) 25.3 [place] % (Auto) 8.3 Eos % (Auto) 4.8 H Baso % (Auto) 0.9 Lymph # (Auto) 3.40 H [place]linger # (Auto) 1.1 H Eos # (Auto) 0.7 H Baso # (Auto) 0.1 Abs Immat Gran (auto) 0.07 H Absolute Neuts (auto) 8.1 H Absolute Nucleated RBC 0.000 Nucleated RBC % 0.0 ALICIA Screen Negative
[2024-02-22 14:08] LABS: Alpha-1-Antitrypsin, QN 219 mg/dL (83-199); Ceruloplasmin 32 mg/dL (14-30)
[2024-02-22 23:04] LABS: Actin Antibody (IgG) <20 U (<20)
[2024-02-24 11:28] LABS: LKM 1 Antibody <=20.0 U (<=20.0)
[2024-02-27 11:48] LABS: Alpha Fetoprotein Tumor Marker 4.4 ng/mL (<6.1)
[2024-03-02 14:47] LABS: Mitochondrial (M2) Ab (IgG) 21.9 U
== END 2024-02-21 11:15 | disposition home or self-care (01) | DRG 392 ==
LOC: ANHED 20:59 → ANH3MEDSUR 22:05
PROVIDERS: Nurse Practitioner; Physician Assistant; Surgery; Admitting Provider Internal Medicine; Emergency Provider Emergency Medicine; PCP Emergency Medicine; Visit Provider General Practice
DX: K57.32 Diverticulitis of large intestine without perforation or abscess without bleeding (principal); I10 Essential (primary) hypertension; J44.9 Chronic obstructive pulmonary disease, unspecified; K80.20 Calculus of gallbladder without cholecystitis without obstruction; L29.8 Other pruritus; T36.95XA Adverse effect of unspecified systemic antibiotic, initial encounter; M54.59 Other low back pain; G89.29 Other chronic pain; R74.01 Elevation of levels of liver transaminase levels; F17.210 Nicotine dependence, cigarettes, uncomplicated; F10.10 Alcohol abuse, uncomplicated; Z98.1 Arthrodesis status
CPT/HCPCS: 36415; 74177; 80053; 80074; 80076; 81003; 82103; 82105; 82390; 82607; 82728; 82746; 82948; 83520; 83540; 83550; 83605; 83690; 85025; 85027; 85610; 86038; 86039; 86364; 86376; 99285; A9270; J0744; J1170; J1836; J2270; J2405; J2470; J2543; J7030; J7120; J7121; Q9967

== ENCOUNTER 2024-04-13 00:22 | Day surgery (SDC) | payer MEDICARE, MEDICAID, SELFPAY ==
[2024-03-30 15:28] VITALS: BMI 25.7
[2024-04-13 11:42] VITALS: BP 155/91; PULSE 84; RESP 18; TEMP 36.4; O2SAT 99; BMI 25.7
[2024-04-13] MEDS: LACTATED RINGERS 1,000 ML 150 ML IV CONT (11:56)
--- NOTE | 2024-04-13 12:22 | WPDANESEPPF ---
Anes - Initial Pre Proc Eval Procedure: Operation Date: 04/13/24 13:00 Proposed Procedures p Colonoscopy - Nic Baer MD Date/Time: 04/13/24 12:22 Surgeon: Nic Baer MD Pre Op Diagnosis: diverticulitis of large intestine Patient Data Age: 58 Gender: M Height: 1.83 m Weight: 85.9 kg Last Vital Signs Temp 36.4 C 04/13/24 11:42 Pulse 84 04/13/24 11:42 Resp 18 04/13/24 11:42 BP 155/91 H 04/13/24 11:42 Pulse Ox 99 04/13/24 11:42 O2 Del Method Room Air 04/13/24 11:42 Allergies Allergy/AdvReac Type Severity Reaction Status Date / Time ampicillin AdvReac Unknown Verified 04/13/24 11:41 Penicillins AdvReac Unknown Verified 04/13/24 11:41 Home Medications Medication Instructions Recorded Confirmed Type albuterol sulfate 90 mcg/actuation 2 puff inhalation Q4-6H PRN 03/23/23 04/13/24 History aerosol inhaler Shortness Of Breath Or Wheezing lisinopril 20 mg tablet 20 mg PO DAILY 03/30/24 04/13/24 History Patient hx anesthesia problems: none Family hx anesthesia problems: none Results Review: All pre-operative results and documents have been reviewed as part of the pre-operative evaluation. [facility] Past Medical History Medical History Chronic lumbar pain Diverticulitis Hypertension Nicotine dependence, cigarettes, with other nicotine-induced disorders Surgical History Surgical History History of lumbar spinal fusion Family History Family History Other Unknown family medical history Social History Social History Smoking packs per day: 1 Smoking cigarettes per day: 20.0 Years smoked: 40 Smoking pack-years: 40.00 Smoking status: Current every day smoker Tobacco type: cigarettes Alcohol intake: current Drinks per week: 49 Alcohol use details: pt states a lot Substance use: current Substance use type: marijuana Other substance usage details: 3 TIMES PER DAY Do You Feel Safe in your Home?: Yes Lack of Transportation: No Lack of Food: Often True Current Housing: I Have Housing Concerned About Future Housing: No Difficulty Paying Gas/Electric Bills: No Difficulty Paying for Meds: No Currently Unemployed: No Education: Grade School Difficulty w/ Childcare or Family Care: No Living arrangements: alone Spiritual care concerns: No Anes - Eval Final PreProcedure Day of Procedure 04/13/24 12:22 Patient weight: normal Heart: regular rate and rhythm Lungs: clear to auscultation Airway: Mallampati scale class II Neurological: alert and oriented Last oral intake: >/= 8 hours ASA classification: III Emergent: no Anesthetic plan: proceed Results Review: All pre-operative results and documents have been reviewed as part of the pre-operative evaluation. Informed Consent: The patient's anesthetic plan and its attendant risks and benefits were discussed with the patient/family/POA. Questions were solicited and answers provided to the satisfaction of the patient/family/POA.
--- NOTE | 2024-04-13 12:31 | PM.HPGS ---
History of Present Illness History of Present Illness Consent: Risks, benefits, and alternatives have been discussed and questions answered. Patient agrees to proceed with procedure. Chief complaint: diverticulitis of large intestine Narrative: Everardo Sumner is a 58 year old male with diverticulitis, now asymptomatic. He needs colonoscopy, last one more than 5 years ago Review of Systems Review of Systems: All systems reviewed & are unremarkable except as noted in HPI and below PMFSH Past Medical History Medical History (Updated 04/13/24 @ 12:31 by Nic Baer MD) Chronic lumbar pain Diverticulitis History of diverticulitis of colon Hypertension Nicotine dependence, cigarettes, with other nicotine-induced disorders Surgical History Surgical History History of lumbar spinal fusion Family History Family History Other Unknown family medical history Social History Social History Smoking packs per day: 1 Smoking cigarettes per day: 20.0 Years smoked: 40 Smoking pack-years: 40.00 Smoking status: Current every day smoker Tobacco type: cigarettes Alcohol intake: current Drinks per week: 49 Alcohol use details: pt states a lot Substance use: current Substance use type: marijuana Other substance usage details: 3 TIMES PER DAY Do You Feel Safe in your Home?: Yes Lack of Transportation: No Lack of Food: Often True Current Housing: I Have Housing Concerned About Future Housing: No Difficulty Paying Gas/Electric Bills: No Difficulty Paying for Meds: No Currently Unemployed: No Education: Grade School Difficulty w/ Childcare or Family Care: No Living arrangements: alone Spiritual care concerns: No Meds Home Medications and Allergies Home Medications Medication Instructions Recorded Confirmed Type albuterol sulfate 90 mcg/actuation 2 puff inhalation Q4-6H PRN 03/23/23 04/13/24 History aerosol inhaler Shortness Of Breath Or Wheezing lisinopril 20 mg tablet 20 mg PO DAILY 03/30/24 04/13/24 History Allergies Allergy/AdvReac Type Severity Reaction Status Date / Time ampicillin AdvReac Unknown Verified 04/13/24 11:41 Penicillins AdvReac Unknown Verified 04/13/24 11:41 Vital Signs Vital Signs - 24 hr 04/13/24 11:42 Temperature 97.6 F Pulse Rate 84 Respiratory Rate 18 Blood Pressure 155/91 H Pulse Oximetry 99 Oxygen Delivery Room Air Exam Const: General: comfortable and no acute distress HENMT: Face/Nose/Sinus: Normal nares present Eyes: General: appearance normal, both eyes and all related structures Neck: Neck: no JVD Resp: Auscultation: clear to auscultation bilaterally Cardio: Rate: regular rate Rhythm: regular rhythm GI: Inspection: non-distended GI Palp: Yes Soft to palpation Skin: General skin exam: normal color Neuro: General: gait normal Speech: normal speech Extrem: General: normal to inspection Psych: Mental Status: mental status grossly normal Assessment and Plan Assessment and plan (1) History of diverticulitis of colon: Code(s): Z87.19 - Personal history of other diseases of the digestive system Status: Acute Assessment and Plan: colonoscopy
[2024-04-13 13:17] VITALS: BP 110/73; PULSE 89; RESP 21; O2SAT 99
[2024-04-13 13:27] VITALS: BP 146/74; PULSE 82; RESP 20; O2SAT 99
[2024-04-13 13:37] VITALS: BP 152/97; PULSE 80; RESP 18; O2SAT 97
== END 2024-04-13 13:50 | disposition home or self-care (01) ==
PROVIDERS: PCP Emergency Medicine; Referring Provider Internal Medicine Gastroenterology; Visit Provider Internal Medicine Gastroenterology
PROC: 0DJD8ZZ Inspection of Lower Intestinal Tract, Via Natural or Artificial Opening Endoscopic (ICD-10-PCS; CPT 45378; principal; 2024-04-13 13:00)
DX: Z12.11 Encounter for screening for malignant neoplasm of colon (principal); K64.8 Other hemorrhoids; K57.30 Diverticulosis of large intestine without perforation or abscess without bleeding; I10 Essential (primary) hypertension; M54.50 Low back pain, unspecified; G89.29 Other chronic pain; F17.210 Nicotine dependence, cigarettes, uncomplicated; F12.90 Cannabis use, unspecified, uncomplicated; Z79.51 Long term (current) use of inhaled steroids; Z98.890 Other specified postprocedural states; Z98.1 Arthrodesis status; Z87.19 Personal history of other diseases of the digestive system
CPT/HCPCS: G0121; J2003; J2704; J7120

== ENCOUNTER 2024-07-30 09:02 | Emergency (ER) | payer MEDICARE, MEDICAID, SELFPAY ==
[2024-07-30] VITALS (10 sets, daily range): BP systolic 104–175; BP diastolic 84–99; PULSE 77–90; RESP 8–20; TEMP 36.6; O2SAT 92–98
--- NOTE | ~2024-07-30 | CT_ITS ---
EXAMINATION: CT abdomen pelvis w con DATE: 07/30/2024 12:32 INDICATION: Diverticulitis TECHNIQUE: Computed tomography (CT) of the abdomen and pelvis was performed with 100 mL Omnipaque-350 intravenous contrast. Automated exposure control and iterative reconstruction technique were employe d. The dose-length product was 627.43 mGy-cm. COMPARISON: None FINDINGS: Mild emphysema and mild dependent atelectasis in the visualized lower lungs. Calcified left lower lob e nodule along with calcified mediastinal lymph nodes and several scattered hepatic and splenic calci fications all consistent with old granulomatous disease. Heart size normal. No pericardial or pleural effusion. Small sliding-type hiatal hernia. Diffuse hepatic steatosis with focal sparing along the gallbladder fossa. There are few tiny calcifie d gallstones along the dependent wall of the normal-appearing gallbladder. No intra or extra hepatic biliary ductal dilation. Pancreas, bilateral adrenal glands and kidneys are normal. Moderate divertic ulosis along the sigmoid colon without adjacent from trace stranding to suggest diverticulitis. Bladd er is normal. Small bilateral fat-containing inguinal hernias. No free intraperitoneal gas or fluid. No pathologically enlarged abdominal or pelvic lymphadenopathy. There is calcified atherosclerosis of the aorta and many of the other arteries. Postoperative changes at the lumbosacral junction with L5 laminectomy, posterior spinal fusion with bilateral vertical steven and pedicle screw fixation and attem pted anterior fusion with interbody bone graft cage. There is 7 mm anterolisthesis L5 on S1. The disc spaces not yet appear solidly fused. IMPRESSION: 1. Moderate sigmoid diverticulosis without evident diverticulitis although this is a clinical diagnos is. 2. Cholelithiasis. 3. Small sliding-type hiatal hernia. 4. Small fat-containing bilateral inguinal hernias. Reviewed, dictated and finalized at location A. SHAVER HELPER IMPRESSION: 1. Moderate sigmoid diverticulosis without evident diverticulitis although this is a clinical diagnosis. 2. Cholelithiasis. 3. Small sliding-type hiatal hernia. 4. Small fat-containing bilateral inguinal hernias.
--- OUTSIDE RECORDS SUMMARY | 2024-07-30 09:12 | XMS_ITS | Referral Summary ---
Author Organization [facility] Address [address] [place] [place] [address] Care Team Providers Care Passenger Attendant Name Role Phone Mesfin Cortes MD Primary Care Provider [phone] Source Comments [facility],non-owned Affiliates and Associated Physician Practices is amultiple site organization consisting of ambulatory clinics and hospital sitesin [place], [place], [place] and [place]. This disclosure is being madepursuant to the Care Everywhere program and may not contain all information available regarding this patient. Last updated 18.[facility] Allergies Active Allergy Reactions Criticality Noted Date Comments Ampicillin GI Discomfort Penicillins GI Discomfort Medications * Be aware that medications may not be up to date on this document. Alwaysverify current medications with the patient. Medication Sig Dispensed Refills Start Date End Date Status atorvastatin (LIPITOR) 20 MG tablet Take 1 (one) tablet by mouth once daily 07/18/2020 Active vitamin D, ergocalciferol, (Drisdol) 1.25 MG (54836 UT) capsule Take 1 (one) capsule by mouth every 7 days 06/13/2022 Active lisinopril (Prinivil; Zestril) 20 MG tablet 06/18/2022 Act tahira alendronate (Fosamax) 35 MG tablet Take 1 (one) tablet by mouth Active fenofibrate micronized (Lofibra) 134 MG capsule 05/24/2023 Active Vascepa 1 g capsule Take 1 (one) capsule by mouth 2 times daily 04/04/2023 Active pravastatin (Pravachol) 40 MG tablet 02/04/2023 Active Cholecalciferol 125 MCG (5000 UT) Take 125 mcg by mouth once daily Active lisinopril (Prinivil; Zestril) 20 MG tablet Take 1 (one) tablet by mouth once daily Active Brant-3 Fatty Acids (fish oil) 1000 MG capsule Take 1 (one) capsule by mouth 2 times daily Active Active Problems Problem Noted Date Diagnosed Date Lumbar radiculopathy, right Social History Tobacco Use Types Packs/Day Years Used Date Smoking Tobacco: Every Day Cigarettes 0.3 25 Started: 08/1995; Last attempted to quit: 08/2020 Smokeless Tobacco: Never Tobacco Cessation:Ready to Q uit: Not Asked; Counseling Given: Not Answered Alcohol Use Standard Drinks/Week Comments Yes 4 (1 standard drink = 0.6 oz pur e alcohol) WEEKLY Sex and Gender Information Value Date Recorded Sex Assigned at Not on file Gender Identity Not on file Sexual Orientation Not on file Last Filed Vital Signs Vital Sign Reading Time Taken Comments Blood Pressure 152/96 10/07/2023 8:33 AM CDT Patient is having pain Pulse 78 10/07/2023 8:33 AM CDT Temperature 37 C (98.6 F) 10/07/2023 8:33 AM CDT Respiratory Rate 18 08/13/2022 8:59 AM DISTRIBUTION SYSTEM OPERATOR Oxygen Saturation 93% 10/07/2023 8:3 3 AM CDT Inhaled Oxygen Concentration - - Weight 87.5 kg (193 lb) 10/07/2023 8:33 AM CDT Height 177.8 cm (5' 10 ) 10/07/2023 8:3 3 AM CDT Body Mass Index 27.69 10/07/2023 8:33 AM CDT Functional Status Functional Status Response Date of Assess ment Is person deaf or have serious hearing difficult y? No 09/16/2020 Is person blind or have serious difficulty seein g? No 09/16/2020 Does person have serious dif ficulty walking/climbing stairs? No 09/16/2020 Does person have difficulty dressing/bathing? No 09/16/2020 Does person have difficulty doing errands alone? No 09/16/2020 Cognitive Status Response Date of Assessm ent Does person have difficulty concentrating/remembering/making decisions? No 09/16/2020 Plan of Treatment Not on file Medical Devices Implanted Type Area Consulting Nurse Device Identifier Shelf Expiration Date Model / Serial / Lot Screw Set Ti Spnl Brk Off Cd Hzn Nonster - Sn/A Implanted:Qty: 4 on 09/16/2020 by Jonathan Broussard MD at [facility] N/A: Spine Lumbar Medtronic Sofamor [employer] 09/16/2030 [id number] / N/A / N/A Screw 7.5mm 35mm Ma Spne Solera Cd Hzn - Sn/A Implanted:Qty: 2 on 09/16/2020 by Jonathan Brousasrd MD at [facility] N/A: Spine Lumbar Medtronic Sofamor [employer] 09/16/2030 [id number] / N/A / N/A Screw 7.5mm 40mm Ma Spne Solera Cd Hzn - Sn/A Implanted:Qty: 2 on 09/16/2020 by Jonathan Broussard MD at [facility] N/A: Spine Lumbar Medtronic Sofamor [employer] 09/16/2030 [id number] / N/A / N/A Agent Hmst Evithrom Geltn Top Kt Ndlfr - Sn/A Implanted:Qty: 2 on 09/16/2020 by Jonathan Broussard MD at [facility] N/A: Spine Lumbar [employer] 06/29/2021 [id number] / N/A / [id number] Graft Bone Grftn Dbm 5x2.5cm - [id number] Implanted:Qty: 1 on 09/16/2020 by Jonathan Broussard MD at [facility] N/A: Spine Lumbar [employer] 07/06/2023 [id number] DUPLICATE / [id number] / N/A Spcr 18 Deg 14x22 - Sn/A Implanted:Qty: 1 on 09/16/2020 by Jonathan Broussard MD at [facility] N/A: Spine Lumbar Medtronic Sofamor [employer] 02/28/2026 [id number] / N/A / [id number] Spcr 18 Deg 14x22 - Sn/A Implanted:Qty: 1 on 09/16/2020 by Jonathan Broussard MD at [facility] N/A: Spine Lumbar Medtronic Sofamor [employer] 11/12/2026 [id number] / N/A / [id number] Agus Spnl 50mm 5.5mm Cd Hzn Crv [place] - Sn/A Implanted:Qty: 2 on 09/16/2020 by Jonathan Broussard MD at [facility] N/A: Spine Lumbar Medtronic Inc 09/16/2030 [id number] / N/A / N/A Procedures Procedure Name Priority Date/Time Associated Diagnosis Comments IMAGING/RADIOLOGY/X RAY RESULTS ORDER 05/24/2024 BASIC METABOLIC PANEL (CALCIUM TOTAL) Routine 09/19/2020 1:44 AM CDT Lumbar radiculopathy, right from Last 3 Months or Most Recently Relevant to Health Maintenance Results * IMAGING RADIOLOGY XRAY RESULTS ORDER (05/24/2024) Anatomical Region Laterality Modality Other 05/24/2024 Narrative 05/24/2024 Ordered by an unspecified provider. Scanned Document IMAGING * BASIC METABOLIC PANEL (CALCIUM TOTAL) (09/19/2020 1:44 AM CDT) BUN 15 7 - 26 mg/dL 09/19/2020 4:04 AM [facility] Creatinine 1.0 0.6 - 1.2 mg/dL 09/19/2020 4:04 AM [facility] Sodium 141 136 - 145 mmol/L 09/19/2020 4:04 AM [facility] Potassium 3.8 3.5 - 4.5 mmol/L 09/19/2020 4:04 AM [facility] Chloride 101 98 - 107 mmol/L 09/19/2020 4:04 AM [facility] CO2 27 22 - 29 mmol/L 09/19/2020 4:04 AM [facility] Glucose 97 70 - 115 mg/dL 09/19/2020 4:04 AM [facility] Calcium 9.2 8.4 - 10.2 mg/dL 09/19/2020 4:04 AM [facility] Anion Gap 17 8 - 18 09/19/2020 4:04 AM [facility] BUN/Creatinine Ratio 15 7 - 23 09/19/2020 4:04 AM [facility] Osmolality Calculated 293 270 - 300 mOsm/kg 09/19/2020 4:04 AM [facility] eGFR >60 >60 mL/min/1.7 3 m2 09/19/2020 4:04 AM [facility] Blood BLOOD SPECIMEN / Unknown Lab Venipuncture / Unknown 09/19/2020 1:44 AM CDT 09/19/2020 3:30 AM T Jonathan Broussard MD LAB - CHEMISTRY ORDERABLES [facility] [address] [place] [address], [facility] [phone] from Last 3 Months or Most Recently Relevant to Health Maintenance Advance Directives * Full Code (Latest Code Status on File) Date Activated Date Inactivated Comments 09/16/2020 2:19 PM 09/19/2020 11:55 AM Care Teams Passenger Attendant Relationship Specialty Start Date End Date Mesfin Cortes MD [address] [place] [id number] PCP - General 06/08/22
--- OUTSIDE RECORDS SUMMARY | 2024-07-30 09:12 | XMS_ITS | Clinical Summary ---
Author Organization [facility] Address [address] [place] [address] Phone Care Team Providers Care Hydro Excavation Operator Name Role Phone Mesfin Cortes MD Primary Care Provider [phone] Philippe Sunshine MD Unavailable Allergies Active Allergy Reactions Criticality Noted Date Comments Ampicillin Nausea 09/17/2018 Penicillins Nausea 09/04/2018 Medications lisinopril (PRINIVIL, ZESTRIL) 20 MG Tablet Take 20 mg by mouth daily. Active albuterol 108 (90 Base) MCG/ACT Aerosol Solution INHALE 2 PUFFS BY MOUTH EVERY 6 HOURS NEEDED. 10/23/2023 Active Active Problems Problem Noted Date Diagnosed Date Elevated blood pressure reading 06/09/2024 Depression 12/30/2018 Cigarette nicotine dependence without complicati on 12/30/2018 Sacroiliac joint dysfunction of both sides 10/02 Elevated blood pressure read ing in office without diagnosis of hypertension 10/02/2018 Lumbar radiculopathy 09/04/2018 Pars defect of lumbar spine 09/04/2018 Facet arthropathy, lumbosacral 09/04/2018 Encounters Date Type Department Care Team Description 06/09/2024 8:00 AM FLIGHT OPERATIONS COORDINATOR Office Visit [facility] [address] [address] Philippe Snushine MD Leukocytosis, unspecified type (Primary Dx); Elevated hematocrit; Thrombocytosis; Clonal hematopoiesis of indeterminate potential (CHIP); Tobacco abuse 06/09/2024 7:50 AM FLIGHT OPERATIONS COORDINATOR Lab [facility] [address] [phone] Lab, [facility] Mandy Leukocytosis, unspecified type 06/09/2024 Travel from Last 3 Months Family History Relation Name Status Comments Mother Alive Social History Tobacco Use Types Packs/Day Years Used Date Smoking Tobacco: Every Day Cigarettes Smokeless Tobacco: Never Tobacco Cessation:Ready to Q uit: Yes; Counseling Given: Yes Sex and Gender Information Value Date Recorded Sex Assigned at Not on file Legal Sex Male 1:49 PM CDT Gender Identity Not on file Sexual Orientation Not on file Last Filed Vital Signs Vital Sign Reading Time Taken Comments Blood Pressure 140/88 06/09/2024 8:30 AM FLIGHT OPERATIONS COORDINATOR Pulse 98 06/09/2024 8:30 AM FLIGHT OPERATIONS COORDINATOR Temperature 37 C (98.6 F) 06/09/2024 8:30 AM FLIGHT OPERATIONS COORDINATOR Respiratory Rate 18 06/09/2024 8:30 AM FLIGHT OPERATIONS COORDINATOR Oxygen Saturation 97% 06/09/2024 8:30 AM FLIGHT OPERATIONS COORDINATOR Inhaled Oxygen Concentration - - Weight 90 kg (198 lb 8 oz) 06/09/2024 8:30 AM CS T Height 177.8 cm (5' 10 ) 06/09/2024 8:30 AM FLIGHT OPERATIONS COORDINATOR Body Mass Index 28.48 06/09/2024 8:30 AM FLIGHT OPERATIONS COORDINATOR Plan of Treatment Upcoming Encounters Date Type Department Care Team (Late st Contact Info) Description 09/08/2024 7:45 AM CDT Lab [facility] [address] [phone] Lab, [place] 09/08/2024 8:00 AM CDT Office Visit [facility] [address] [phone] Philippe Sunshine MD [address] [place] [id number] Health Maintenance Due Date Last Done Comments Hepatitis C Virus (HCV) Screening 1967 TdaP Immunization 1967 Hepatitis B Immunization (1 of 3 - 19+ 3-dose series) 1986 Pneumococcal Immunization (5 0+ years) (1 of 2 - PCV) 1986 Colonoscopy 2012 Colorectal Cancer Screening 2012 Cologuard 2017 Immunochemical Fecal Occult Blood 2017 Zoster Immunization (1 of 2) 2017 PSA Discussion 2022 Influenza Immunization (#1) 2024 SARS-COV-2 Immunization ( season) 2024 01/27/2021, 12/30/2020 Respiratory Syncytial Virus (RSV) Immunization (Adult) (1 - 1-dose 75+ series) 2042 Meningococcal Immunization (ACWY) Aged Out No longer eligible b ased on patient's age to complete this topic Rotavirus Immunization Aged Out No lo nger eligible based on patient's age to complete this topic Procedures Procedure Name Priority Date/Time Associated Diagnosis Comments CBC WITH AUTO DIFF OH Routine 06/09/2024 8:02 AM FLIGHT OPERATIONS COORDINATOR LACTATE DEHYDROGENASE (LD) Routine 06/09/2024 8:02 AM FLIGHT OPERATIONS COORDINATOR Leukocytosis, unspecified type from Last 3 Months Results * (ABNORMAL) CBC WITH AUTO DIFF OH (06/09/2024 8:02 AM FLIGHT OPERATIONS COORDINATOR) WBC 10.9(H) 4.0 - 10.0 10*3/uL CANCER MOLDING TECHNICIAN [facility] HGB 19.0(H) 13.7 - 17.5 g/dL CANCER MOLDING TECHNICIAN [facility] HCT 55.3(H) 40.1 - 51.0 % CANCER MOLDING TECHNICIAN [facility] PLT 303 163 - 369 10*3/uL CANCER MOLDING TECHNICIAN [facility] MPV 8.7(L) 9.4 - 12.4 fL CANCER MOLDING TECHNICIAN [facility] RBC 5.47 4.63 - 6.08 10*6/uL CANCER MOLDING TECHNICIAN [facility] MCV 101(H) 79 - 95 fL CANCER MOLDING TECHNICIAN [facility] MCH 34.7(H) 25.6 - 32.2 pg CANCER MOLDING TECHNICIAN [facility] MCHC 34.4 32.2 - 36.5 g/dL CANCER MOLDING TECHNICIAN [facility] RDW 14.2 11.6 - 14.4 % [facility]CER MOLDING TECHNIC[facility] Neutrophils % 64.7 36.0 - 66.0 % CANCER MOLDING TECHNICIAN [facility] Lymphocytes % 21.9 19.0 - 40.0 % CANCER MOLDING TECHNICIAN [facility] Monocytes % 8.8 4.1 - 12.1 % CANCER MOLDING TECHNICIAN [facility] Eosinophils % 3.1 0.0 - 3.5 % CANCER MOLDING TECHNICIAN [facility] Basophils % 1.0 0.0 - 1.0 % CANCER MOLDING TECHNICIAN [facility] Absolute Neutrophils 7.1(H) 1.4 - 6.6 10*3/uL CANCER MOLDING TECHNICIAN [facility] Absolute Lymphocytes 2.4 0.8 - 4.0 10*3/uL CANCER MOLDING TECHNICIAN [facility] Absolute Monocytes 1.0 0.2 - 1.2 10*3/uL CANCER MOLDING TECHNICIAN [facility] Absolute Eosinophils 0.3 0.0 - 0.4 10*3/uL CANCER MOLDING TECHNICIAN [facility] Absolute Basophils 0.1 0.0 - 0.1 10*3/uL CANCER MOLDING TECHNICIAN [facility] 06/09/2024 8:02 AM FLIGHT OPERATIONS COORDINATOR us Philippe Sunshine MD LAB SEND OUTS Final Result CANCER MOLDING TECHNICIAN [facility] [address] [address], [place] [phone] * LACTATE DEHYDROGENASE (LD) (06/09/2024 8:02 AM FLIGHT OPERATIONS COORDINATOR) LDH 226 140 - 271 U/L [facility] Blood 06/09/2024 8:02 AM FLIGHT OPERATIONS COORDINATOR Narrative [facility] - 06/09/2024 9:21 AM FLIGHT OPERATIONS COORDINATOR Release to patient->Immediate us Philippe Sunshine MD CHEMISTRY ORDERABLES Final Resul t CANCER MOLDING TECHNICIAN [facility] [place] [address] [place] [address], [place] [phone] from Last 3 Months Insurance MEDICAID [facility] MEDICARE MEDICAID [place] Care Teams Hydro Excavation Operator Relationship Specialty Start Date End Date Mesfin Cortes MD [address] [place] [id number] PCP - General Family Medicine 08/14/23 Philippe Sunshine MD [address] [place] [phone] Consulting Physician Oncology 02/21/24
--- OUTSIDE RECORDS SUMMARY | 2024-07-30 09:13 | XMS_ITS | CONTINUITY OF CARE DOCUMENT ---
Author Name tab joyfrancisco Address Unknown Organization [facility] Address [address] [address] [place] [address] Phone [phone] Care Team Providers Care Cloth Spreader Name Role Phone Karie SHIN, Izaiah Rosenberg Unavailable [phone] HIRAM ORTIZ MD Unavailable [phone] HIRAM ORTIZ MD Unavailable [phone] PROBLEMS Condition Status Date Provider Notes Cardiology examination active Izaiah call MD Hypertension active Izaiah Tiwari MD Hypercholesterolemia active Izaiah ho MD Hyperlipidemia active Izaiah Tiwari MD Ethanol abuse active Izaiah Tiwari MD Back pain active Izaiah Tiwari MD Elevated liver enzymes active Izaiah call MD Hypertriglyceridemia active Izaiah ho MD Tobacco abuse active Izaiah Tiwari MD ENCOUNTERS Date Type Provider Location Encounter Diag nosis 05/08 - 05/10 In-person encounter Office Visit Izaiah Tiwari MD [facility] 04/04 - 04/05 In-person encounter Office Visit Izaiah Tiwari MD [facility] Cardiology examinationHypertensionHypercholesterolemiaHyperlipi demiaEthanol abuseBack painElevated liver enzymesHypertriglyceridemiaTobacco abuse VITAL SIGNS Date Observation Value Provider Body Mass Index (Ratio) 25.09 kg/m2 Alessia Tiwari MD blood pressure, diastolic 76 mm[Hg] Li nkLogic blood pressure, systolic 113 mm[Hg] Angélica kLic blood pressure, cuff size regular Ja rret blood pressure, diastolic 76 mm[Hg] Ja rret blood pressure, systolic 113 mm[Hg] Jar ret pulse rate 73 /min Daniel respiratory rate E&M 12 /min oxygen saturation, oximetry 99 % Daniel weight E&M 185 [lb_av] Daniel height E&M 72 [in_i] Daniel Body Mass Index (Ratio) 25.22 kg/m2 Alessia Tiwari MD blood pressure, diastolic 83 mm[Hg] Li nkLogic blood pressure, systolic 124 mm[Hg] Angélica blood pressure, cuff size regular Ja rret blood pressure, diastolic 83 mm[Hg] Ja rret blood pressure, systolic 124 mm[Hg] Jar ret pulse rate 77 /min Daniel height E&M 72 [in_i] Daniel y respiratory rate E&M 12 /min oxygen saturation, oximetry 95 % weight E&M 186 [lb_av] Daniel y ALLERGIES Allergy Name Onset Date Reaction Criticality Status PENICILLIN Low Criticality active AMPICILLIN Low Criticality active HISTORY OF MEDICATION USE Medication Status Instructions Dates Provider Indications Com ments atorvastatin 20 mg tablet active Izaiah Tiwari MD Vascepa 1 gram capsule active TAKE 2 CAPSULES BY MOUTH TWICE DAILY 2 Izaiah Tiwari MD ergocalciferol (vitamin D2) 1,250 mcg (50,000 unit) capsule active fenofibrate micronized 134 mg capsule active lisinopril 20 mg tablet active SOCIAL HISTORY Date Observation Value Provider social history reviewed E&M revi ewed - no changes required Izaiah Tiwari MD social history reviewed E&M revi ewed - no changes required Izaiah Tiwari MD social history E&M S moking History: P atient currently smokes every day. P atient has been counseled to quit. Izaiah Tiwari MD smoking/tobacco cess ation, patient education and counseling yes Izaiah Tiwari MD smoking status Current every day smoker S adriana Tiwari MD smoking history, tot al pack/day 1 INSURANCE PROVIDERS Payer name Policy type / Coverage type [facility] Medicaid 9 [id number] [place] MEDIC[place] Medicare [id number] ADVANCE DIRECTIVES Name Date DISCUSSED - NO DECISION MADE TREATMENT PLAN Date Name Performer [id number],C, W ill do cardiac workup once his numbers are established May 08, 2023 R eviewed echo, EF 50% and very minimal valvular disease. He overall feels better since getting over diverticulitis. Izaiah Tiwari MD [id number],C,D iscussion of benefits for remote patient monitoring took place. Patient gives consent for remote monitoring of physiologic parameters including, but not limited to, weight, blood pressure, pulse oximetry, respiratory flow rate. His updated medication list for this problem includes: Lisinopril 20 Mg Tablet (Lisinopril) BP today: 113/76 P rior BP: 124/83 (04/04/2023) Izaiah Tiwari MD [id number],S,L iver enzymes reviewed looked ok on bloodwork R emains on lipitor Izaiah Tiwari MD [id number],S,Stopped alcoh ol consumption Izaiah Tiwari MD [id number],C, T he Patient was reencouraged to stop smoking. Izaiah Tiwari MD [id number],C, H is updated medication list for this problem includes: Vascepa 1 Gram Capsule (Icosapent ethyl) ..... Take 2 capsules by mouth twice daily Fenofibrate Micronized 134 Mg Capsule (Fenofibrate micronized) Izaiah Tiwari MD [id number],C,T he Patient was reencouraged to stop smoking. Izaiah Tiwari MD [id number],C, H is updated medication list for this problem includes: Lisinopril 20 Mg Tablet (Lisinopril) BP today: 124/83 n eeds echo done for LVH evaluation D iscussion of benefits for remote patient monitoring took place. Patient gives consent for remote monitoring of physiologic parameters including, but not limited to, weight, blood pressure, pulse oximetry, respiratory flow rate. Izaiah Tiwari MD [id number],C,W ill do cardiac workup once his numbers are established Izaiah Tiwari MD [id number],S,u nderlying problem forcing him for etoh abuse, needs to be seen by pain specilaist Izaiah Tiwari MD [id number],C,H eavy etoh consumption as noted above could have lead to his elkevated LFTs usually statins are safe to use until the levels of transaminases increase to more than 3 times baseline values, discontinuation of the drug should be considered.. His AST was 96 and 3x cut off would be 180. His ALT was 107, 3x cutoff would be 150. He would probably be safe to use lipitor 20, pravastatin 40 especially since he stoppped drinking etoh, would recheck liver enzymes Izaiah Tiwari MD [id number],C,H eavy etoh consumption as noted above could have lead to his elkevated LFTs usually statins are safe to use until the levels of transaminases increase to more than 3 times baseline values, discontinuation of the drug should be considered.. Izaiah Tiwari MD [id number],C,h igh trigs, probably related to etoh consumption, would be worth rechecking and start fish oil 4g daily to reduce his trigs, contiune fenofibrate m onitor LFTS regularly, i suspect they will come down in next months Izaiah Tiwari MD [id number],C, His AST was 96 and 3x cut off would be 180. His ALT was 107, 3x cutoff would be 150. He would probably be safe to use lipitor 20, pravastatin 40 especially since he stoppped drinking etoh, would recheck liver enzymes Izaiah Tiwari MD Cardiology: W ill do cardiac workup once his numbers are established May 08, 2023 R eviewed echo, EF 50% and very minimal valvular disease. He overall feels better since getting over diverticulitis. Izaiah Tiwari MD Cardiology:Discussio n of benefits for remote patient monitoring took place. Patient gives consent for remote monitoring of physiologic parameters including, but not limited to, weight, blood pressure, pulse oximetry, respiratory flow rate. His updated medication list for this problem includes: Lisinopril 20 Mg Tablet (Lisinopril) BP today: 113/76 P rior BP: 124/83 (04/04/2023) Izaiah Tiwari MD Cardiology:Liver enz ymes reviewed looked ok on bloodwork R emains on lipitor Izaiah Tiwari MD Cardiology:Stopped alcohol consu mption Izaiah Tiwari MD Cardiology: T he Patient was reencouraged to stop smoking. Izaiah Tiwari MD Cardiology: H is updated medication list for this problem includes: Vascepa 1 Gram Capsule (Icosapent ethyl) ..... Take 2 capsules by mouth twice daily Fenofibrate Micronized 134 Mg Capsule (Fenofibrate micronized) Izaiah Tiwari MD Cardiology:The Patie nt was reencouraged to stop smoking. Izaiah Tiwari MD Cardiology: H is updated medication list for this problem includes: Lisinopril 20 Mg Tablet (Lisinopril) BP today: 124/83 n eeds echo done for LVH evaluation D iscussion of benefits for remote patient monitoring took place. Patient gives consent for remote monitoring of physiologic parameters including, but not limited to, weight, blood pressure, pulse oximetry, respiratory flow rate. Izaiah Tiwari MD Cardiology:Will do c ardiac workup once his numbers are established Izaiah Tiwari MD Cardiology:underlyin g problem forcing him for etoh abuse, needs to be seen by pain specilaist Izaiah Tiwari MD Cardiology:Heavy eto h consumption as noted above could have lead to his elkevated LFTs usually statins are safe to use until the levels of transaminases increase to more than 3 times baseline values, discontinuation of the drug should be considered.. His AST was 96 and 3x cut off would be 180. His ALT was 107, 3x cutoff would be 150. He would probably be safe to use lipitor 20, pravastatin 40 especially since he stoppped drinking etoh, would recheck liver enzymes Izaiah Tiwari MD Cardiology:Heavy eto h consumption as noted above could have lead to his elkevated LFTs usually statins are safe to use until the levels of transaminases increase to more than 3 times baseline values, discontinuation of the drug should be considered.. Izaiah Tiwari MD Cardiology:high trig s, probably related to etoh consumption, would be worth rechecking and start fish oil 4g daily to reduce his trigs, contiune fenofibrate m onitor LFTS regularly, i suspect they will come down in next months Izaiah Tiwari MD Cardiology: His AST was 96 and 3x cut off would be 180. His ALT was 107, 3x cutoff would be 150. He would probably be safe to use lipitor 20, pravastatin 40 especially since he stoppped drinking etoh, would recheck liver enzymes Izaiah Tiwari MD Date Name RPM (remote patient monitoring) Complete Echo Lipoprotein (a) LIPID PANEL COMPREHENSIVE METABO LIC PANEL, W/EGFR HISTORY OF PROCEDURES Procedure Date Procedure Name Provider Procedure Notes S tatus EKG Izaiah Tiwari MD compl eted EKG Izaiah Tiwari MD compl eted
--- OUTSIDE RECORDS SUMMARY | 2024-07-30 09:13 | XMS_ITS | Clinical Summary ---
Author Organization [facility] Address [address] [place] [address] Care Team Providers Care Salad Counter Attendant Name Role Phone Mesfin Cortes MD Primary Care Provider [phone] Source Comments [facility],non-owned Affiliates and Associated Physician Practices is amultiple site organization consisting of ambulatory clinics and hospital sitesin [place], [place], [place] and [place]. This disclosure is being madepursuant to the Care Everywhere program and may not contain all information available regarding this patient. Last updated 18.[facility] Allergies Active Allergy Reactions Criticality Noted Date [...] Active vitamin D, ergocalciferol, (Drisdol) 1.25 MG (02429 UT) capsule Take 1 (one) capsule by [...] (one) tablet by mouth once daily Active Forbes-3 Fatty Acids (fish oil) 1000 MG capsule Take 1 (one) capsule by mouth 2 times daily Active Active Problems Problem Noted Date Diagnosed Date Lumbar radiculopathy, right Family History Relation Name Status Comments Mother [...] 8:33 AM CDT Respiratory Rate 18 08/13/2022 8:5 9 AM [facility] Oxygen Saturation 93% 10/07/2023 8:3 3 AM CDT Inhaled Oxygen Concentration - - Weight 87.5 kg (193 lb) 10/07/2023 8:33 AM CDT Height 177.8 cm (5' 10 ) 10/07/2023 8:3 3 AM CDT Body Mass Index 27.69 10/07/2023 8:33 AM CDT Plan of Treatment Health Maintenance Due Date Last Done Comments COLOGUARD (AGES 45-75) - COLON CA SCREENING 1967 COLON MONITORING 1967 COLONOSCOPY - COLON CA SCREENING 1967 CT COLONOGRAPHY - COLON CA SCREENING 1967 Colorectal Cancer Screening 1967 FIT - COLON CA SCREENING 1967 FLEX SIG - COLON CA SCREENING 1967 MEDICARE AWV 12 MONTHS 1967 HIV SCREENING 1982 HEPATITIS C SCREENING 05/05/1985 DTAP/TDAP/TD VACCINES (1 - Tdap) 1986 HEPATITIS B VACCINE (1 of 3 - 19+ 3-dose series) 1986 PNEUMOCOCCAL VACCINE 50+ (1 of 2 - PCV) 1986 PNEUMOCOCCAL VACCINE (1 of 2 - PCV) 1986 ZOSTER VACCINE (1 of 2) 2017 SCREENING FOR DIABETES 09/20/2023 , 09/18/2020, 09/17/2020, Additional history exists COVID-19 VACCINE (2023- season) 2024 INFLUENZA VACCINE (#1) 2024 DEPRESSION SCREENING 06/24/2024 HIB VACCINE Aged Out No longer eligi ble based on patient's age to complete this topic HPV VACCINE Aged Out No longer eligi ble based on patient's age to complete this topic MENINGOCOCCAL (Group B) VACCINE Aged Out No longer eligible based on patient's age to complete this topic MENINGOCOCCAL VACCINE Aged Out No erik janae eligible based on patient's age to complete this topic Medical Devices Implanted Type Area Painter Structural Steel Device Identifier Shelf Expiration Date Model / Serial / Lot Screw Set Ti Spnl Brk Off Cd Hzn Nonster - Sn/A Implanted:Qty: 4 on 09/16/2020 by Jonathan Broussard MD at [facility] N/A: Spine Lumbar Medtronic Sof[employer]or [employer] 09/16/2030 [id number] / N/A / N/A Screw 7.5mm 35mm Ma Spne Solera Cd Hzn - Sn/A Implanted:Qty: 2 on 09/16/2020 by Jonathan Broussard MD at [facility] N/A: Spine Lumbar Medtronic Sof[employer]or [employer] 09/16/2030 [id number] / N/A / N/A Screw 7.5mm 40mm Ma Spne Solera Cd Hzn - Sn/A Implanted:Qty: 2 on 09/16/2020 by Jonathan Broussard MD at [facility] N/A: Spine Lumbar Medtronic Sof[employer]or [employer] 09/16/2030 [id number] / N/A / N/A Agent Hmst Evithrom Geltn Top Kt Ndlfr - Sn/A Implanted:Qty: 2 on 09/16/2020 by Jonathan Broussard MD at [facility] N/A: Spine Lumbar [employer] 06/29/2021 [id number] / N/A / [id number] Graft Bone Grftn Dbm 5x2.5cm - [id number] Implanted:Qty: 1 on 09/16/2020 by Jonathan Broussard MD at [facility] N/A: Spine Lumbar [employer] Inc 07/06/2023 [id number] DUPLICATE / [id number] / N/A Spcr 18 Deg 14x22 - Sn/A Implanted:Qty: 1 on 09/16/2020 by Jonathan Broussard MD at [facility] N/A: Spine Lumbar Medtronic Sof[employer]or [employer] 02/28/2026 [id number] / N/A / [id number] Spcr 18 Deg 14x22 - Sn/A Implanted:Qty: 1 on 09/16/2020 by Jonathan Broussard MD at [facility] N/A: Spine Lumbar Medtronic [employer]or [employer] 11/12/2026 [id number] / N/A / [id number] Agus Spnl 50mm 5.5mm Cd Hzn Crv [place] - Sn/A Implanted:Qty: 2 on 09/16/2020 by Jonathan Broussard MD at [facility] N/A: Spine Lumbar Medtronic Inc 09/16/2030 [id number] / N/A / N/A Procedures Procedure Name [...] 7 - 26 mg/dL 09/19/2020 4:04 AM [facility] Creatinine 1.0 0.6 - 1.2 mg/dL 09/19/2020 4:04 AM [facility] Sodium 141 136 - 145 mmol/L 09/19/2020 4:04 AM [facility] Potassium 3.8 3.5 - 4.5 mmol/L 09/19/2020 4:04 AM [facility] Chloride 101 98 - 107 mmol/L 09/19/2020 4:04 AM [facility] CO2 27 22 - 29 mmol/L 09/19/2020 4:04 AM [facility] Glucose 97 70 - 115 mg/dL 09/19/2020 4:04 AM [facility] Calcium 9.2 8.4 - 10.2 mg/dL 09/19/2020 4:04 AM [facility] Anion Gap 17 8 - 18 09/19/2020 4:04 AM [facility] BUN/Creatinine Ratio 15 7 - 23 09/19/2020 4:04 AM [facility] Osmolality Calculated 293 270 - 300 mOsm/kg 09/19/2020 4:04 AM [facility] eGFR >60 >60 mL/min/1.7 3 m2 09/19/2020 4:04 AM [facility] Blood BLOOD SPECIMEN / Unknown Lab Venipuncture / Unknown 09/19/2020 1:44 AM CDT 09/19/2020 3:30 AM T Jonathan Broussard MD LAB - CHEMISTRY ORDERABLES [facility] [address] [place] [address], [facility] [phone] from Last 3 Months or Most Recently Relevant to Health Maintenance Advance Directives * Full Code (Latest Code Status on File) Date Activated Date Inactivated Comments 09/16/2020 2:19 PM 09/19/2020 11:55 AM Care Teams Salad Counter Attendant Relationship Specialty Start Date End Date Mesfin Cortes MD [address] [place] [id number] PCP - General 06/08/22
--- OUTSIDE RECORDS SUMMARY | 2024-07-30 09:13 | XMS_ITS | Clinical Summary ---
Author Organization [facility] Address [facility] [place] [address] Care Team Providers Care Compressed Gases Tester Name Role Phone Mesfin Cortes MD Primary Care Provider [phone] Allergies Active Allergy Reactions Criticality Noted Date Comments Penicillins Nausea Only 08/01/2023 Medications alendronate (FOSAMAX) 35 MG tablet Take 1 tablet (35 mg total) by mouth every 7 days. Active atorvastatin (LIPITOR) 20 MG tablet Take 1 tablet (20 mg total) by mouth nightly at bedtime. Active Vitamin D3 125 mcg Tab Take 1 tablet (125 mcg total) by mouth daily. Active fenofibrate micronized (LOFIBRA) 134 MG capsule Take 1 capsule (134 mg total) by mouth daily. with food. Active icosapent ethyl (VASCEPA) 1 G capsule Take 2 capsules (2 g total) by mouth 2 (two) times daily. Take with food. Active lisinopril (PRINIVIL) 20 MG tablet Take 1 tablet (20 mg total) by mouth daily. Active fish oil (OMEGA-3 FATTY ACID) 1000 MG Cap capsule Take 1 capsule (1,000 mg total) by mouth 2 (two) times daily. Active Family History Relation Status Comments Mother Alive Social History Tobacco Use Types Packs/Day Years Used Date Smoking Tobacco: Every Day Cigarettes Smokeless Tobacco: Never Tobacco Cessation:Ready to Q uit: Not Asked; Counseling Given: Not Answered Alcohol Use Standard Drinks/Week Comments Yes 0 (1 standard drink = 0.6 oz pur e alcohol) Sex and Gender Information Value Date Recorded Sex Assigned at Not on file Legal Sex Male 8:38 AM SHACTOR Gender Identity Not on file Sexual Orientation Not on file Last Filed Vital Signs Vital Sign Reading Time Taken Comments Blood Pressure 154/90 08/06/2023 11:00 AM [facility] Pulse 66 08/06/2023 10:30 AM [facility]ACT[facility] Temperature 36.7 C (98.1 F) 08/06/2023 11:00 AM [facility]ACTOR Respiratory Rate 16 08/06/2023 11:0 0 AM SHACTOR Oxygen Saturation 97% 08/06/2023 11: 00 AM [facility]ACTOR Inhaled Oxygen Concentration - - Weight 88.8 kg (195 lb 12.3 oz) 08/06/2023 8:21 AM [facility]ACTOR Height 182.9 cm (6') 08/06/2023 8:21 AM SHACTOR Body Mass Index 26.55 08/06/2023 8:21 AM SHACTOR Plan of Treatment Health Maintenance Due Date Last Done Comments Colorectal Cancer Screening Colonoscopy (10 Years) 1967 Annual Physical 1970 Pneumococcal Vaccine: Pediatrics (0 to 5 Years) and At-Risk Patients (6 to 64 Years) (1 of 2 - PCV) 1973 Hepatitis C 1985 DTaP, Tdap and Td Vaccines ( 1 - Tdap) 1986 Hepatitis B Vaccines (1 of 3 - 19+ 3-dose series) 1986 Zoster Vaccines (1 of 2) 2017 COVID-19 Vaccine (2023-2 5 season) 2024 01/27/2021, 12/30/2020 Influenza Adult (#1) 2024 Meningococcal B Vaccine Aged Out No l onger eligible based on patient's age to complete this topic Meningococcal Vaccine Aged Out No erik janae eligible based on patient's age to complete this topic RSV Immunizations Under 20 Months Aged Out No longer eligible b ased on patient's age to complete this topic Insurance MEDICARE MEDICAID Care Teams Compressed Gases Tester Relationship Specialty Start Date End Date Mesfin Cortes MD [phone] [address] PCP - General FAMILY PRACTICE 08/06/23
--- OUTSIDE RECORDS SUMMARY | 2024-07-30 09:13 | XMS_ITS | Patient Health Summary ---
Author Organization [facility] Address [address] [place] [address] Care Team Providers Care Rectification Printer Name Role Phone Mesfin Cortes MD Primary Care Provider [phone] Note from [facility],non-owned Affiliates and Associated Physician Practices is amultiple site organization consisting of ambulatory clinics and hospital sitesin [place], [place], [place] and [place]. This disclosure is being madepursuant to the Care Everywhere program and may not contain all information available regarding this patient. Last updated 18.[facility] Allergies * Ampicillin(GI Discomfort) * Penicillins(GI Discomfort) Medications * Be aware that medications may not be up to date on this document. Alwaysverify current medications with the patient. * atorvastatin (LIPITOR) 20 MG tablet(Started 07/18/2020) Take 1 (one) tablet by mouth once daily * vitamin D, ergocalciferol, (Drisdol) 1.25 MG (03564 UT) capsule(Started 06/13/2022) Take 1 (one) capsule by mouth every 7 days * lisinopril (Prinivil; Zestril) 20 MG tablet(Started 06/18/2022) * alendronate (Fosamax) 35 MG tablet Take 1 (one) tablet by mouth * fenofibrate micronized (Lofibra) 134 MG capsule(Started 05/24/2023) * Vascepa 1 g capsule(Started 04/04/2023) Take 1 (one) capsule by mouth 2 times daily * pravastatin (Pravachol) 40 MG tablet(Started 02/04/2023) * Cholecalciferol 125 MCG (5000 UT) Take 125 mcg by mouth once daily * lisinopril (Prinivil; Zestril) 20 MG tablet Take 1 (one) tablet by mouth once daily * Baldwin-3 Fatty Acids (fish oil) 1000 MG capsule Take 1 (one) capsule by mouth 2 times daily Active Problems Problem Noted Date Diagnosed Date [...] CDT Respiratory Rate 18 08/13/2022 8:59 AM SCHOOL CUSTODIAN Oxygen Saturation 93% 10/07/2023 8:3 3 AM CDT Inhaled Oxygen Concentration - - Weight 87.5 kg (193 lb) 10/07/2023 8:33 AM CDT Height 177.8 cm (5' 10 ) 10/07/2023 8:3 3 AM CDT Body Mass Index 27.69 10/07/2023 8:33 AM CDT Medical Devices Implanted Type Area Immunochemist Device Identifier Shelf Expiration Date Model / Serial / Lot Screw Set Ti Spnl Brk Off Cd Hzn Nonster - Sn/A Implanted:Qty: 4 on 09/16/2020 by Jonathan Broussard MD at [facility] N/A: Spine Lumbar Medtronic Sof[employer]or [employer] 09/16/2030 [id number] / N/A / N/A Screw 7.5mm 35mm Ma Spne Solera Cd Hzn - Sn/A Implanted:Qty: 2 on 09/16/2020 by Jonathan Broussard MD at [facility] N/A: Spine Lumbar Medtronic Sofamor [employer] 09/16/2030 [id number] / N/A / N/A Screw 7.5mm 40mm Ma Spne Solera Cd Hzn - Sn/A Implanted:Qty: 2 on 09/16/2020 by Jonathan Broussard MD at [facility] N/A: Spine Lumbar Medtronic Sofamor [employer] 09/16/2030 [id number] / N/A / N/A Agent Hmst Evithrom Geltn Top Kt Ndlfr - Sn/A Implanted:Qty: 2 on 09/16/2020 by Jonathan Broussard MD at [facility] N/A: Spine Lumbar [employer] 06/29/2021 [id number] / N/A / [id number] Graft Bone Grftn Dbm 5x2.5cm - [id number] Implanted:Qty: 1 on 09/16/2020 by Jonathan Broussard MD at [facility] N/A: Spine Lumbar [employer] Inc 07/06/2023 [id number] DUPLICATE / [id number] / N/A Spcr 18 Deg 14x22 - Sn/A Implanted:Qty: 1 on 09/16/2020 by Jonathan Broussard MD at [facility] N/A: Spine Lumbar Medtronic Sofamor [employer] 02/28/2026 [id number] / N/A / [id number] Spcr 18 Deg 14x22 - Sn/A Implanted:Qty: 1 on 09/16/2020 by Jonathan Broussard MD at [facility] N/A: Spine Lumbar Medtronic Sofamor [employer] 11/12/2026 [id number] / N/A / [id number] Agus Spnl 50mm 5.5mm Cd Hzn Crv [place] - Sn/A Implanted:Qty: 2 on 09/16/2020 by Jonathan Broussard MD at [facility] N/A: Spine Lumbar Medtronic Inc 09/16/2030 [id number] / N/A / N/A Procedures * IMAGING/RADIOLOGY/XRAY RESULTS ORDER(Performed 05/24/2024) * IMAGING/RADIOLOGY/XRAY RESULTS ORDER(Performed 07/30/2022) * EMG WITH NERVE CONDUCTION STUDY(Performed 06/13/2021) Performed for Lumbar radiculopathy, right, Chronic low back pain, unspecified back pain laterality,unspecified whether sciatica present * CARDIAC EKG ORDER(Performed 09/20/2020) * PREPARE RBC LEUKOREDUCED UNIT(Performed 09/20/2020) Performed for Preop examination * DIFFERENTIAL MANUAL(Performed 09/19/2020) Performed for Lumbar radiculopathy, right * PHOSPHORUS BLOOD(Performed 09/19/2020) Performed for Lumbar radiculopathy, right * MAGNESIUM BLOOD(Performed 09/19/2020) Performed for Lumbar radiculopathy, right * CBC W AUTO DIFFERENTIAL(Performed 09/19/2020) Performed for Lumbar radiculopathy, right * BASIC METABOLIC PANEL (CALCIUM TOTAL)(Performed 09/19/2020) Performed for Lumbar radiculopathy, right * DIFFERENTIAL MANUAL(Performed 09/18/2020) Performed for Lumbar radiculopathy, right * PHOSPHORUS BLOOD(Performed 09/18/2020) Performed for Lumbar radiculopathy, right * MAGNESIUM BLOOD(Performed 09/18/2020) Performed for Lumbar radiculopathy, right * CBC W AUTO DIFFERENTIAL(Performed 09/18/2020) Performed for Lumbar radiculopathy, right * BASIC METABOLIC PANEL (CALCIUM TOTAL)(Performed 09/18/2020) Performed for Lumbar radiculopathy, right * XR LUMBAR SPINE 2 OR 3VW(Performed 09/17/2020) Performed for Lumbar radiculopathy, right * OT EVAL AND TREAT(Performed 09/17/2020) * PHOSPHORUS BLOOD(Performed 09/17/2020) Performed for Lumbar radiculopathy, right * MAGNESIUM BLOOD(Performed 09/17/2020) Performed for Lumbar radiculopathy, right * CBC W AUTO DIFFERENTIAL(Performed 09/17/2020) Performed for Lumbar radiculopathy, right * BASIC METABOLIC PANEL (CALCIUM TOTAL)(Performed 09/17/2020) Performed for Lumbar radiculopathy, right * CT LUMBAR SPINE WO CONTRAST(Performed 09/16/2020) Performed for Lumbar radiculopathy, right * FL RICO SURGERY(Performed 09/16/2020) Performed for Preop examination * FL OARM SURGERY(Performed 09/16/2020) Performed for Preop examination * FUSION TRANSFORAMINAL LUMBAR INTERBODY (TLIF)(Performed 09/16/2020) Performed for Lumbar radiculopathy * ENDOTRACHEAL TUBE NOTE(Performed 09/16/2020) * TYPE + SCREEN PANEL(Performed 09/16/2020) Performed for Preop examination * LAB RESULTS ORDER(Performed 09/15/2020) * TYPE + SCREEN PANEL(Performed 09/12/2020) Performed for Preop examination * DIFFERENTIAL MANUAL(Performed 09/12/2020) Performed for Pre-op testing, Lumbar radiculopathy * NICOTINE URINE(Performed 09/12/2020) Performed for Pre-op testing * PT-INR [facility](Performed 09/12/2020) Performed for Pre-op testing, Lumbar radiculopathy * PTT [facility](Performed 09/12/2020) Performed for Pre-op testing, Lumbar radiculopathy * COMPREHENSIVE METABOLIC PANEL(Performed 09/12/2020) Performed for Pre-op testing, Lumbar radiculopathy * CBC W AUTO DIFFERENTIAL(Performed 09/12/2020) Performed for Pre-op testing, Lumbar radiculopathy * XR CHEST 2VW(Performed 09/12/2020) Performed for Pre-op testing, Lumbar radiculopathy * SARS-COV-2 (COVID-19) IN HOUSE(Performed 09/12/2020) Performed for Pre-op testing, Lumbar radiculopathy * EKG 12-LEAD(Performed 09/12/2020) Performed for Pre-op testing, Lumbar radiculopathy * XR LUMBAR SPINE 4VW OR MORE(Performed 04/28/2018) Performed for Back pain, unspecified back location, unspecified back pain laterality, unspecified chronicity Results * IMAGING RADIOLOGY XRAY RESULTS ORDER (05/24/2024) Only the most recent of2 resultswithin the time period is included. Anatomical Region Laterality Modality Other 05/24/2024 Narrative 05/24/2024 Ordered by an unspecified provider. Scanned Document IMAGING * EMG WITH NERVE CONDUCTION STUDY (06/13/2021 10:24 AM SCHOOL CUSTODIAN) Kelsea Beach MD - 06/13/2021 10:24 AM SCHOOL CUSTODIAN Kelsea Frederick MD 06/13/2021 11:10 AM Electrodiagnostic testing was explained to the patient, and they were allowed adequate opportunity to ask questions or discuss EDX testing evaluation. The patient verbalized consent and gave permission for Electrodiagnostic testing. Full Name: Everardo Sumner Procedure #: [id number] Gender: Male Date of : 1965 Visit Date: 06/13/2021 10:17 Age: 56 Years Examining Physician: Kelsea Frederick M.D. Referring Physician: Jonathan Broussard M.D. Technologist: WILMER Reason for Referral: Lumbar Radiculopathy versus Sciatic Neuropathy History: Patient with previous spinal fusion with pain in the legs and itching and reduced feeling in the legs. Limited exam of the legs shows normal tone and bulk and strength. SNC Nerve / Sites Rec. Site Onset Lat Peak Lat PP Amp Segments Distance Peak Diff Velocity Temp. ms ms V mm ms m/s C R Sural - Ankle (Calf) Calf Ankle 2.5 3.4 13.5 Calf - Ankle 140 56 29.7 Ref. ?4.8 ?5.0 Ref. ?45 L Sural - Ankle (Calf) Calf Ankle 3.0 4.0 16.8 Calf - Ankle 140 46 31.9 Ref. ?4.8 ?5.0 Ref. ?45 R Superficial peroneal - Ankle Lat leg Ankle 3.1 3.5 5.8 Lat leg - Ankle 120 38 36.1 Ref. ?4.2 ?5.0 Ref. 2 Ankle 2.5 3.0 4.0 2 - Lat leg -0.5 33.8 L Superficial peroneal - Ankle Lat leg Ankle 3.1 4.0 8.8 Lat leg - Ankle 120 39 31.2 Ref. ?4.2 ?5.0 Ref. MNC Nerve / Sites Muscle Latency Amplitude Segments Lat Diff Distance Velocity ms mV ms mm m/s R Peroneal - EDB Ankle EDB 4.4 6.6 Ankle - EDB 80 Ref. ?6.6 ?2.0 Ref. Fib head EDB 11.6 5.4 Fib head - Ankle 7.3 310 43 Ref. Ref. ?42 Pop fossa EDB 13.5 5.1 Pop fossa - Fib head 1.9 100 53 Ref. Ref. ?42 Pop fossa - Ankle 9.2 L Peroneal - EDB Ankle EDB 3.7 7.3 Ankle - EDB 80 Ref. ?6.6 ?2.0 Ref. Fib head EDB 10.6 6.5 Fib head - Ankle 7.0 310 45 Ref. Ref. ?42 Pop fossa EDB 12.7 6.4 Pop fossa - Fib head 2.0 100 49 Ref. Ref. ?42 Pop fossa - Ankle 9.0 R Tibial - AH Ankle AH 4.3 18.2 Ankle - AH 80 Ref. ?6.6 ?2.0 Ref. Pop fossa AH 13.4 14.0 Pop fossa - Ankle 9.1 405 44 Ref. Ref. ?42 L Tibial - AH Ankle AH 3.8 23.1 Ankle - AH 80 Ref. ?6.6 ?2.0 Ref. Pop fossa AH 13.0 18.0 Pop fossa - Ankle 9.3 405 44 Ref. Ref. ?42 F Wave Nerve F Lat Ref. M Lat Min F Lat Ref. Min M Lat ms ms ms ms ms ms R Peroneal - EDB 50.2 ?56.0 4.4 26.7 ?56.0 4.4 R Tibial - AH 53.5 ?58.0 3.6 27.6 ?58.0 3.6 L Peroneal - EDB 54.8 ?56.0 3.6 51.6 ?56.0 3.6 L Tibial - AH 53.5 ?58.0 3.9 29.5 ?58.0 3.9 EMG Summary Table Insertional Spontaneous Volitional MUAPs Muscle Nerve Roots Insertional Fib PSW Fasc Duration Amplitude Poly Recruitment R. Tibialis anterior Deep peroneal (Fibular) L4-L5 Normal None None None Gr.Incr. Sl.Incr. None Reduced R. Gastrocnemius (Medial head) Tibial S1-S2 Normal None None None Gr.Incr. Sl.Incr. None Incomp Act R. Extensor hallucis longus Deep peroneal (Fibular) L5-S1 Normal None None None Gr.Incr. Gr.Incr. None Reduced R. Vastus lateralis Femoral L2-L4 Normal None None None Gr.Incr. Normal None Reduced L. Tibialis anterior Deep peroneal (Fibular) L4-L5 Normal None None None Normal Normal None Normal L. Gastrocnemius (Medial head) Tibial S1-S2 Normal None None None Gr.Incr. Normal None Normal L. Extensor hallucis longus Deep peroneal (Fibular) L5-S1 Normal None None None Gr.Incr. Sl.Incr. None Reduced L. Vastus lateralis Femoral L2-L4 Normal None None None Gr.Incr. Sl.Incr. None Reduced Interpretation: The bilateral sural sensory SNAP responses are normal. The bilateral superficial peroneal sensory SNAP responses are normal. The bilateral peroneal motor CMAP responses are normal. The bilateral tibial motor CMAP responses are normal. The F latencies of the bilateral tibial and peroneal motor CMAP responses are normal. The needle EMG exam of several muscles on the lower limbs shows no abnormal spontaneous activity. The motor unit action potentials MUAPs of most muscles (per table) are large, increased in duration and reduced in recruitment consistent with chronic reinnervation. NEE of the paraspinal muscles is not done due to previous surgical intervention. Conclusions: This study is abnormal. 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 This sis supported by the chronic needle EMG changes without abnormal sensory responses which localizes the process proximal to the dorsal root ganglia. Clinical correlation is recommended. Kelsea Frederick M.D. Jonathan Broussard MD NEUROLOGY ORDERA BLES * CARDIAC EKG ORDER (09/20/2020 8:16 AM CDT) Narrative 09/20/2020 8:16 AM CDT Ordered by an unspecified provider. Scanned Document CARDIAC SERVICES ORD ERABLES * PREPARE (CROSSMATCH) RBC UNIT(S), 2 Units (09/20/2020 1:17 AM CDT) Unit Description AS1 LR PRBC [facility] Unit ABO A [facility] Unit Rh POS [facility] Product [facility] R02 [facility] Unit Donor # [id number] [facility] Unit Status released [facility] BL[facility] D [facility] Product Code [id number] [facility] Blood Type Barcode 6200 [facility] Expiration Date S BLOOD BANK LAB Unit Description AS1 LR PRBC [facility] Unit ABO A [facility] Unit Rh POS [facility] Product Number R44 [facility] B LOOD [facility] Unit Donor # [id number] [facility] Unit Status released [facility] D [facility] Product Code [id number] [facility] OD [facility] Blood Type Barcode 6200 [facility] Expiration Date S BLOOD BANK LAB Blood Bank BLOOD SPECIMEN / Unknown 09/16/2020 6:41 AM CDT Jonathan Broussard MD LAB - BLOOD BANK ORDERABLES [facility] [address] [place] [address], [facility] [phone] * (ABNORMAL) DIFFERENTIAL MANUAL (09/19/2020 1:44 AM CDT) Only the most recent of3 resultswithin the time period is included. [facility] WBC (corrected for NRBC) 15.2 10 3/uL 09/19/2020 4:41 [address] [facility] Total Cell Count 100 09/19/2020 4:41 AM [facility] Neutrophils Absolute Manual 9.27(H) 1.60 - 7.00 10 3/uL 09/19/2020 4:41 AM [facility] Comment:(BANDS+SEGS) x WBC = NEUT # (ANC) Lymphocyte Absolute Manual 4.86(H) 0.80 - 2.90 10 3/uL 09/19/2020 4:41 AM [facility] Monocytes Absolute Manual 0.76(H) 0.14 - 0.66 10 3/uL 09/19/2020 4:41 AM [facility] Eosinophils Absolute Manual 0.30(H) 0.00 - 0.22 10 3/uL 09/19/2020 4:41 AM [facility] Neutrophil % Manual 61(H) 30 - 60 % 09/19/2020 4:41 AM [facility] Lymphocyte % Manual 32 20 - 45 % 09/19/2020 4:41 AM [facility] Monocytes % Manual 5 2 - 10 % 09/19/2020 4:41 AM [facility] Eosinophils % Manual 2 1 - 6 % 09/19/2020 4:41 AM [facility] Platelet Estimate Adequate Adequate 09/19/2020 4:41 AM [facility] RBC Morphology Normal 09/19/2020 4:41 AM [facility] Blood BLOOD SPECIMEN / Unknown Lab Venipuncture / Unknown 09/19/2020 1:44 AM CDT 09/19/2020 3:34 AM CDT Jonathan Broussard MD LAB - HEMATOLOGY ORDERABLES Performing Organization Address City/State/[facility] Co de Phone Number [facility] [address] [place] [id number], [facility] [phone] * (ABNORMAL) CBC W AUTO DIFFERENTIAL (09/19/2020 1:44 AM CDT) Only the most recent of4 resultswithin the time period is included. WBC 15.2(H) 3.5 - 10.5 10 3/uL 09/19/2020 3:53 AM [facility] RBC 3.40(L) 4.30 - 5.70 10 6/uL 09/19/2020 3:53 AM [facility] Hemoglobin 10.7(L) 13.5 - 17.5 g/dL 09/19/2020 3:53 AM [facility] Hematocrit 32.2(L) 39.0 - 50.0 % 09/19/2020 3:53 AM [facility] MCV 94.7 81.0 - 97.0 fL 09/19/2020 3:53 AM [facility] MCH 31.5 28.0 - 34.0 pg 09/19/2020 3:53 AM [facility] MCHC 33.2 32.0 - 36.0 g/dL 09/19/2020 3:53 AM [facility] Platelet Count 357 150 - 400 10 3/uL 09/19/2020 3:53 AM [facility] RDW-SD 42.6 36.0 - 50.0 fL 09/19/2020 3:53 AM [facility] RDW-CV 12.2 11.2 - 14.8 % 09/19/2020 3:53 AM [facility] MPV 10.3 9.3 - 12.8 fL 09/19/2020 3:53 AM [facility] nRBC Absolute 0.00 0 10 3/uL 09/19/2020 3:53 AM [facility] nRBC Auto 0.0 0 /100 WBC 09/19/2020 3:53 AM [facility] Blood BLOOD SPECIMEN / Unknown Lab Venipuncture / Unknown 09/19/2020 1:44 AM CDT 09/19/2020 3:34 AM CDT Jonathan Broussard MD LAB - HEMATOLOGY ORDERABLES [address] [address], [facility] [phone] * BASIC METABOLIC PANEL (CALCIUM TOTAL) (09/19/2020 1:44 AM CDT) Only the most recent of3 resultswithin the time period is included. BUN 15 7 - 26 mg/dL 09/19/2020 4:04 AM [facility] Creatinine 1.0 0.6 - 1.2 mg/dL 09/19/2020 4:04 AM [facility] Sodium 141 136 - 145 mmol/L 09/19/2020 4:04 AM [facility] Potassium 3.8 3.5 - 4.5 mmol/L 09/19/2020 4:04 AM [facility] Chloride 101 98 - 107 mmol/L 09/19/2020 4:04 AM [facility] CO2 27 22 - 29 mmol/L 09/19/2020 4:04 AM [facility] Glucose 97 70 - 115 mg/dL 09/19/2020 4:04 AM [facility] Calcium 9.2 8.4 - 10.2 mg/dL 09/19/2020 4:04 AM [facility] Anion Gap 17 8 - 18 09/19/2020 4:04 AM [facility] BUN/Creatinine Ratio 15 7 - 23 09/19/2020 4:04 AM [facility] Osmolality Calculated 293 270 - 300 mOsm/kg 09/19/2020 4:04 AM [facility] eGFR >60 >60 mL/min/1.7 3 m2 09/19/2020 4:04 AM [facility] Blood BLOOD SPECIMEN / Unknown Lab Venipuncture / Unknown 09/19/2020 1:44 AM CDT 09/19/2020 3:30 AM CDT Jonathan Broussard MD LAB - CHEMISTRY ORDERABLES [address] [address], [facility] [phone] * PHOSPHORUS BLOOD (09/19/2020 1:44 AM CDT) Only the most recent of3 resultswithin the time period is included. Pathologist [facility] Phosphorus 4.4 2.3 - 4.7 mg/dL 09/19/2020 4:04 AM [facility] Blood BLOOD SPECIMEN / Unknown Lab Venipuncture / Unknown 09/19/2020 1:44 AM CDT 09/19/2020 3:30 AM CDT Jonathan Broussard MD LAB - CHEMISTRY ORDERABLES [address] [address], [place] [phone] * MAGNESIUM BLOOD (09/19/2020 1:44 AM CDT) Only the most recent of3 resultswithin the time period is included. Magnesium 2.0 1.6 - 2.6 mg/dL 09/19/2020 4:04 AM CDT [facility] Blood BLOOD SPECIMEN / Unknown Lab Venipuncture / Unknown 09/19/2020 1:44 AM CDT 09/19/2020 3:30 AM CDT Jonathan Broussard MD LAB - CHEMISTRY ORDERABLES [facility] [address] [place] [address], [facility] [phone] * XR LUMBAR SPINE 2 OR 3VW (09/17/2020 9:25 AM CDT) Anatomical Region Laterality Modality Spine Radiographic Rosemarie ging 09/17/2020 9:28 AM CDT Impressions 09/20/2020 5:42 PM CDT IMPRESSION: Posterior spinal fusion of L5-S1. Mild grade 1 anterolisthesis of L5 on S1, decreased since 04/28/2018. Dictated by Adelina Duran DO (residential therapist). I, Dr. DIANA PANTOJA M.D. have personally reviewed and interpreted this examination/study. This report was electronically signed by DIANA PANTOJA M.D. on 09/20/2020 5:42 PM . Narrative 09/20/2020 5:42 PM CDT ORDER DATE: 09/17/2020 9:26 AM EXAMINATION: XR LUMBAR SPINE 2 OR 3VW HISTORY: M54.16: Lumbar radiculopathy, right, follow-upTLIF COMPARISON: CT lumbar spine without contrast from 09/16/2020 and lumbar spine radiographs from 04/28/2018 FINDINGS: There is mild dextrocurvature of the lumbar spine. There are postsurgical changes of L5-S1 posterior spinal fixation, bilateral L5 laminectomies, and interbody fusion from L5 to S1. Hardware appears intact. A surgical drain is present in the posterior spinal soft tissues. Anterolisthesis of L5 on S1 is unchanged from the postoperative CT, but decreased since 04/28/2018. No acute fracture is identified. Procedure Note Diana Pantoja MD - 09/20/2020 ORDER DATE: 09/17/2020 9:26 AM EXAMINATION: XR LUMBAR SPINE 2 OR 3VW HISTORY: M54.16: Lumbar radiculopathy, right, follow-upTLIF COMPARISON: CT lumbar spine without contrast from 09/16/2020 and lumbar spine radiographs from 04/28/2018 FINDINGS: There is mild dextrocurvature of the lumbar spine. There arepostsurgical changes of L5-S1 posterior spinal fixation, bilateral L5 laminectomies, and interbody fusion from L5 to S1. Hardware appears intact. A surgical drain is present in the posterior spinal soft tissues. Anterolisthesisof L5 on S1 is unchanged from the postoperative CT, but decreased since 04/28/2018. No acute fracture is identified. IMPRESSION: Posterior spinal fusion of L5-S1. Mild grade 1 anterolisthesis of L5 on S1, decreased since 04/28/2018. Dictated by Adelina Duran DO (residential therapist). IDr. DIANA M.D. have personally reviewed and interpreted this examination/study. This report was electronically signed by DIANA PANTOJA M.D. on 09/20/2020 5:42 PM . Jonathan Broussard MD DIAGNOSTIC IMAGI NG ORDERABLES * CT LUMBAR SPINE WO CONTRAST (09/16/2020 2:21 PM CDT) Anatomical Region Laterality Modality Spine Computed Tomogra phy 09/16/2020 3:08 PM CDT Impressions 09/16/2020 8:58 PM CDT IMPRESSION: 1.Postoperative changes of a L5-S1 posterior screw and agus fixation, laminectomy with bilateral facetectomies, and bilateral transforaminal interbody fusion. The hardware appears intact. There are expected postsurgical changes. The anterolisthesis at L5-S1 is improved. 2.No complications with surgery are evident. 3.See text for details Dictated by Jorge Rushing D.O. (residential therapist). Dr. AWA Jaimes have personally reviewed and interpreted this examination/study. This report was electronically signed by AWA ENNIS on 09/16/2020 8:58 PM . Narrative 09/16/2020 8:58 PM CDT EXAMINATION: CT OF THE LUMBAR SPINE WITHOUT CONTRAST HISTORY: M54.16: Lumbar radiculopathy, right TECHNIQUE: CT of the lumbar spine was performed without contrast according to standard protocol. COMPARISON: Lumbar spine x-ray dated 04/28/2018 and MRI lumbar spine without contrast dated 12/11/2017 FINDINGS: There are postsurgical changes of a L5-S1 posterior screw and agus fixation, bilateral L5 laminectomy with bilateral L5-S1 facetectomies, and bilateral transforaminal interbody fusion at L5-S1. The hardware appears intact. There are expected postsurgical changes with fluid and air in the soft tissues. A drain in the soft tissues of the patient's back at the laminectomy site in place. There is redemonstrated mild dextro curvature of the lumbar spine. Grade 1 anterior spondylolisthesis at L5-S1 has improved after surgery. Vertebral bodies are normal in height without evidence of compression fractures. The remaining intervertebral discs are normal in height. There is atherosclerosis of the visualized abdominal aorta, common iliac arteries, and external and internal iliac arteries. L1-L2: There is no disc bulge. There is no central canal stenosis. There is no facet osteoarthritis. There is no neural foraminal stenosis. L2-L3: There is no disc bulge. There is no central canal stenosis or lateral recess stenosis. There is no facet osteoarthritis. There is no neural foraminal stenosis. L3-L4: There is borderline circumferential disc bulging more eccentric to the left side. There is no central canal stenosis or lateral recess stenosis. There is no facet osteoarthritis. There is mild left neural foraminal stenosis due to disc protrusion. L4-L5: There is left foraminal small disc protrusion (series 5, image 116). There is no central canal stenosis or lateral recess stenosis. There is no hypertrophy of ligamentum flavum or facet osteoarthritis. There is mild left neural foraminal stenosis due to disc protrusion without evidence of impingement on the exiting left L4 nerve in the foramen or the extra foraminal region. L5-S1: Evaluation of this area is limited due to streak artifact from the hardware. The thecal sac is decompressed after laminectomy. The position of the transpedicular screws in the respective pedicles is satisfactory and appear uncomplicated. The screws are intact and there is no evidence of loosening. The fluid collection is not evident, but its evaluation is limited. The position of the interbody cages is satisfactory. No neural foraminal stenosis is identified. Procedure Note Awa Ennis MD - 09/16/2020 EXAMINATION: CT OF THE LUMBAR SPINE WITHOUT CONTRAST HISTORY: M54.16: Lumbar radiculopathy, right TECHNIQUE: CT of the lumbar spine was performed without contrastaccording to standard protocol. COMPARISON: Lumbar spine x-ray dated 04/28/2018 and MRI lumbar spine without contrast dated 12/11/2017 FINDINGS: There are postsurgical changes of a L5-S1 posterior screw and agus fixation, bilateral L5 laminectomy with bilateral L5-S1 facetectomies,and bilateral transforaminal interbody fusion at L5-S1. The hardware appears intact. There are expected postsurgical changes with fluid and air inthe soft tissues. A drain in the soft tissues of the patient's back at the laminectomy site in place. There is redemonstrated mild dextro curvature of the lumbar spine. Grade 1 anterior spondylolisthesis at L5-S1 has improved after surgery. Vertebral bodies are normal in height without evidence of compression fractures. The remaining intervertebral discs are normal in height.There is atherosclerosis of the visualized abdominal aorta, common iliac arteries, and external and internal iliac arteries. L1-L2: There is no disc bulge. There is no central canal stenosis. There is no facet osteoarthritis. There is no neural foraminal stenosis. L2-L3: There is no disc bulge. There is no central canal stenosis or lateral recess stenosis. There is no facet osteoarthritis. There is no neural foraminal stenosis. L3-L4: There is borderline circumferential disc bulging more eccentricto the left side. There is no central canal stenosis or lateral recess stenosis. There is no facet osteoarthritis. There is mild left neural foraminal stenosis due to disc protrusion. L4-L5: There is left foraminal small disc protrusion (series 5, image 116). There is no central canal stenosis or lateral recess stenosis.There is no hypertrophy of ligamentum flavum or facet osteoarthritis. There is mild left neural foraminal stenosis due to disc protrusion without evidence of impingement on the exiting left L4 nerve in the foramen orthe extra foraminal region. L5-S1: Evaluation of this area is limited due to streak artifact fromthe hardware. The thecal sac is decompressed after laminectomy. The position of the transpedicular screws in the respective pedicles is satisfactory and appear uncomplicated. The screws are intact and there is no evidence of loosening. The fluid collection is not evident, but its evaluation is limited. The position of the interbody cages is satisfactory. No neural foraminal stenosis is identified. IMPRESSION: 1.Postoperative changes of a L5-S1 posterior screw and agus fixation, laminectomy with bilateral facetectomies, and bilateral transforaminal interbody fusion. The hardware appears intact. There are expected postsurgical changes. The anterolisthesis at L5-S1 is improved. 2.No complications with surgery are evident. 3.See text for details Dictated by Jorge Rushing D.O. (residential therapist). I, Dr. AWA ENNIS have personally reviewed and interpreted this examination/study. This report was electronically signed by AWA ENNIS on 09/16/2020 8:58 PM . Jonathan Broussard MD CT ORDERABLES * [place] RICO SURGERY (09/16/2020 11:40 AM CDT) Narrative [facility] - 09/16/2020 11:40 AM CDT Fluoroscopy was used for this exam in the OR. Please see the Operative report. Jonathan Broussard MD FLUOROSCOPY GLYNN JAIME Performing Organization Address [facility] Co de Phone Number [facility] * FL OARM SURGERY (09/16/2020 10:15 AM CDT) Narrative [facility] - 09/16/2020 10:22 AM CDT Fluoroscopy was used for this exam in the OR. Please see the Operative report. Jonathan Broussard MD FLUOROSCOPY ORDMaureen JAIME Performing Organization Address [facility]/ZIP Co de Phone Number [facility] * ETT LINE PERFORMABLE (09/16/2020 8:05 AM CDT) Narrative Leela Sandoval APRN-TIG WELDER - 09/16/2020 8:05 AM CDT Leela Sandoval APRN-KEVIN 09/16/2020 8:06 AM Endotracheal Tube Placement: Patient Location: OR. Procedure: intubation ([id number]). Procedure Section: Sedation: under general anesthesia. Indications for Airway Management: anesthesia Induction: standard IV Patient Position: sniffing Mask Ventilation: easy with oral airway. Blade Type: Cassandra Laryngoscopy View: grade 1 (full cords) Intubation Adjuncts: stylet Tube: endotracheal tube Placement: oral Tube type: cuff - inflated Tube Size (MM): 7 Depth of Insertion (CM): 23 Measured From: gums Cuff volume (mL): 5 Cuff Inflated With: air Number of Attempts: 1. Placement Verified By: direct visualization, bilateral breath sounds and CO2 monitor Tube secured with: adhesive tape. Dentition unchanged? Yes Difficult Airway? No. Staff Section Anesthesia Provider: Leela Sandoval, PUBLIC WORKS INSPECTOR-TIG WELDER, Performed the procedure Thomas Douglas MD GENERAL ANESTHESIA O RDERABLES * TYPE + SCREEN PANEL (09/16/2020 6:23 AM CDT) Only the most recent of2 resultswithin the time period is included. Antibody Screen NEG 09/16/2020 7:39 AM CDT [facility] ABO Rh AB POS 09/16/2020 7:39 AM CDT [facility] Blood Bank BLOOD SPECIMEN / Unknown Venipuncture / Unknown 09/16/2020 6:23 AM CDT 09/16/2020 6:41 AM CDT Jonathan Broussard MD LAB - BLOOD BANK ORDERABLES Performing Organization Address [facility]/State/ZIP Co de Phone Number [facility] [address] [place] [address], [facility] [phone] * LAB RESULTS ORDER (09/15/2020) Narrative 09/15/2020 Ordered by an unspecified provider. Scanned Document LAB - THERAPEUTIC DR UG MONITORING ORDERABLES * PTT [facility] (09/12/2020 12:32 PM CDT) APTT 27.0 23.0 - 38.4 Seconds 09/12/2020 1:43 PM CDT [facility] Comment:Suggested therapeuti c range for full dose I.V. unfractionated heparin therapy for venous thromboembolism is 71 to 109 seconds. Blood BLOOD SPECIMEN / Unknown Lab Venipuncture / Unknown 09/12/2020 12:32 PM CDT 09/12/2020 1:34 PM CDT Jonathan Broussard MD LAB - COAGULATIO N ORDERABLES Performing Organization Address [facility] de Phone Number [address] [address], [facility] [phone] * PT-INR [facility] (09/12/2020 12:32 PM CDT) Pathologist [facility] PT 12.5 12.1 - 14.8 Seconds 09/12/2020 2:05 PM CDT [facility] INR 1.0 See Comment 09/12/2020 2:05 PM CDT [facility] Comment:The suggested therap eutic range for standard coumadin (warfarin) therapy is an INR of 2.0-3.0. For high-risk patients (Mechanical Mitral Valve Prosthesis, etc.), the suggested prophylactic therapeutic range is an INR of 2.5-3.5. Blood BLOOD SPECIMEN / Unknown Lab Venipuncture / Unknown 09/12/2020 12:32 PM CDT 09/12/2020 1:34 PM CDT Jonathan Broussard MD LAB - COAGULATIO N ORDERABLES Performing Organization Address [facility] Co de Phone Number [address] [address], [facility] [phone] * NICOTINE URINE (09/12/2020 12:32 PM CDT) Cotinine Screen Urine Negative Cutoff 100 ng/mL 09/13/2020 11:17 PM CDT [facility] ([facility]) Comment: INTERPRETIVE DATA: Cotinine Screen, Urine Cotinine is a metabolite of nicotine and may be detected up to seven days after nicotine exposure. The cut-off is set at 100 ng/mL to detect active exposure (smoking). This assay will not distinguish between tobacco use and nicotine replacement therapy. Performed By: [facility] [address] [place] [address] Diagnostic Radiologist: Sophie Siddiqui MD Urine URINE / Unknown Collection / Unknown 09/12/2020 12:32 PM CDT 09/12/2020 1:30 PM CDT Chloé Jordan PUBLIC WORKS INSPECTOR-ARTILLERY OFFICER LAB - URINE CHEMISTR Y ORDERABLES [facility] ([facility]) [address] * COMPREHENSIVE METABOLIC PANEL (09/12/2020 12:32 PM CDT) BUN 21 7 - 26 mg/dL 09/12/2020 2:08 PM [facility] Creatinine 0.9 0.6 - 1.2 mg/dL 09/12/2020 2:08 PM [facility] Sodium 143 136 - 145 mmol/L 09/12/2020 2:08 PM [facility] Potassium 4.5 3.5 - 4.5 mmol/L 09/12/2020 2:08 PM [facility] Chloride 104 98 - 107 mmol/L 09/12/2020 2:08 PM [facility] CO2 27 22 - 29 mmol/L 09/12/2020 2:08 PM [facility] Glucose 76 70 - 115 mg/dL 09/12/2020 2:08 PM [facility] Calcium 9.5 8.4 - 10.2 mg/dL 09/12/2020 2:08 PM [facility] Protein Total 7.5 6.0 - 8.3 g/dL 09/12/2020 2:08 PM [facility] Albumin 4.2 3.4 - 5.0 g/dL 09/12/2020 2:08 PM [facility] Bilirubin Total 1.0 0.2 - 1.2 mg/dL 09/12/2020 2:08 PM [facility] Alkaline Phosphatase 74 40 - 150 Units/L 09/12/2020 2:08 PM [facility] ALT 22 0 - 55 Units/L 09/12/2020 2:08 PM CDT [facility] AST 18 5 - 34 Units/L 09/12/2020 2:08 PM CDT [facility] Anion Gap 17 8 - 18 09/12/2020 2:08 PM CDT [facility] BUN/Creatinine Ratio 23 7 - 23 09/12/2020 2:08 PM CDT [facility] Osmolality Calculated 298 270 - 300 mOsm/kg 09/12/2020 2:08 PM CDT [facility] Albumin/Globulin Ratio 1.3 1.1 - 2.3 09/12/2020 2:08 PM CDT [facility] eGFR >60 >60 mL/min/1.7 3 m2 09/12/2020 2:08 PM CDT [facility] Blood BLOOD SPECIMEN / Unknown Lab Venipuncture / Unknown 09/12/2020 12:32 PM CDT 09/12/2020 1:36 PM CDT Jonathan Broussard MD LAB - CHEMISTRY ORDERABLES Performing Organization Address City/State/[facility] Co de Phone Number [facility] [address] [place] [address], [facility] [phone] * XR CHEST 2VW (09/12/2020 12:21 PM CDT) Anatomical Region Laterality Modality Chest Radiographic Rosemarie ging 09/12/2020 1:18 PM CDT Impressions 09/14/2020 2:53 PM CDT FINDINGS/IMPRESSION: There is no focal consolidation, pleural effusion, or pneumothorax. The cardiomediastinal silhouette is normal. The visible bony thorax is intact. Dictated by Lisa Molina MD (residential therapist). I, Dr. DIANA PANTOJA M.D. have personally reviewed and interpreted this examination/study. This report was electronically signed by DIANA PANTOJA M.D. on 09/14/2020 2:53 PM . Narrative 09/14/2020 2:53 PM CDT EXAMINATION: XR CHEST 2VW HISTORY: Z01.818: Pre-op testing M54.16: Lumbar radiculopathy COMPARISON: No prior study is available for comparison. Procedure Note Diana Pantoja MD - 09/14/2020 EXAMINATION: XR CHEST 2VW HISTORY: Z01.818: Pre-op testing M54.16: Lumbar radiculopathy COMPARISON: No prior study is available for comparison. FINDINGS/IMPRESSION: There is no focal consolidation, pleural effusion, or pneumothorax. The cardiomediastinal silhouette is normal. The visible bony thorax isintact. Dictated by Lisa Molina MD (residential therapist). I, Dr. DIANA PANTOJA M.D. have personally reviewed and interpreted this examination/study. This report was electronically signed by DIANA PANTOJA M.D. on 09/14/2020 2:53 PM . Jonathan Broussard MD DIAGNOSTIC IMAGI NG ORDERABLES * SARS-COV-2 (COVID-19) IN HOUSE (09/12/2020 11:20 AM CDT) COVID-19 PCR Not detected Not detected 09/12/2020 8:10 PM CDT [facility] Microbiology SPECIMEN FROM NASOPHARYNGEAL STRUCTURE / Unknown Collection / Unknown 09/12/2020 11:20 AM CDT 09/12/2020 1:34 PM CDT Narrative [facility] - 09/12/2020 8:10 PM CDT This nucleic acid amplification assay performance was validated by [facility]. This test has been authorized by the Food and Drug administration (FDA)under an Emergency Use Authorization (EUA). This test has been validated in accordance with the FDA's guidance document Policy for Diagnostic Testing in Laboratories Certified to perform High Complexity Testing under CLIA prior to Emergency Use Authorization for Coronavirus Disease-2019 during the Public Health Emergency issued on August 22, 2019. FDA independent review of this validation is pending. This test is only authorized for the duration of time the declaration that circumstances exist justifying the authorization of emergency use of in vitro diagnostic tests for detection of SARS-CoV-2 virus and/or diagnosis of COVID-19 infection under section 564(b)(1) of the Act, 21 U.S.C 360bbb-3 (b)(1), unless the authorization is terminated or revoked sooner. Fact Sheets for this EUA assay are available upon request. Jonathan Broussard MD LAB - MICROBIOLO GY ORDERABLES [facility] [address] [place], [place] [address], [facility] [phone] * EKG 12-LEAD (09/12/2020 11:14 AM CDT) Ventricular Rate 69 BPM [facility] Atrial Rate 69 BPM [facility] P-R Interval 146 ms [facility] QRS Duration ms 74 ms [facility] Q-T Interval ms 360 ms [facility] QTC Calculation (Bezet) 385 ms [facility] Calculated P Ernest 58 degrees [facility] Calculated R Ernest 47 degrees [facility] Calculated T Ernest 60 degrees [facility] Interpretation EKG NORMAL SINUS RHYTHM NORMAL ECG NO PREVIOUS ECGS AVAILABLE Confirmed by fellow Lizbeth George ([id number]) on 09/12/2020 1:45:26 PM Confirmed by Sebastian Azar ([id number]) on 09/13/2020 5:24:20 PM [facility] 09/12/2020 11:1 4 AM CDT 09/13/2020 5:24 PM CDT Jonathan Broussard MD ECG ORDERABLES Performing Organization Address [facility] Co de Phone Number [facility] * XR LUMBAR SPINE 4VW OR MORE (04/28/2018 10:26 AM SCHOOL CUSTODIAN) Anatomical Region Laterality Modality Spine Radiographic Rosemarie ging 04/28/2018 10:2 7 AM SCHOOL CUSTODIAN Impressions 04/29/2018 6:26 AM SCHOOL CUSTODIAN IMPRESSION: L5 pars defect with grade 1 anterolisthesis of L5 on S1. Degenerative change. Report dictated by Brijesh Huff M.D. I, Dr. NICK DELGADO have personally reviewed and interpreted this examination/study. This report was electronically signed by NICK DELGADO on 04/29/2018 6:26 AM . Narrative 04/29/2018 6:26 AM SCHOOL CUSTODIAN EXAMINATION: XR LUMBAR SPINE 4VW OR MORE HISTORY: back pain COMPARISON: None. FINDINGS: There is a lumbar dextrocurvature. There is grade 1 anterior spondylolisthesis at the L5-S1 level. There appears to be a pars defect at L5. The intervertebral disc spaces are maintained. Facet joints are normal. A rightward curvature of the lumbar spine is noted. Facet arthropathy is noted from L3 through S1. Procedure Note Nick Delgado DO - 04/29/2018 EXAMINATION: XR LUMBAR SPINE 4VW OR MORE HISTORY: back pain COMPARISON: None. FINDINGS: There is a lumbar dextrocurvature. There is grade 1 anterior spondylolisthesis at the L5-S1 level. There appears to be a pars defectat L5. The intervertebral disc spaces are maintained. Facet joints are normal. A rightward curvature of the lumbar spine is noted. Facet arthropathy is noted from L3 through S1. IMPRESSION: L5 pars defect with grade 1 anterolisthesis of L5 on S1. Degenerative change. Report dictated by Brijesh Huff M.D. I, Dr. NICK DELGADO have personally reviewed and interpreted this examination/study. This report was electronically signed by NICK DELGADO on 04/29/2018 6:26 AM . Jonathan Broussard MD DIAGNOSTIC IMAGI NG ORDERABLES Care Teams Rectification Printer Relationship Specialty Start Date End Date Mesfin Cortes MD [facility] [address] [facility] [address] [place] [address] PCP - General 06/08/22
[2024-07-30 11:16] LABS: Basophils Absolute Auto 0.1 K/mm3 (0.0-0.1); Basophils Percent Auto 1.3 % (0.2-1.2); Eosinophils Absolute Auto 0.2 K/mm3 (0-0.3); Eosinophils Percent Auto 2.2 % (0-4.4); Hemoglobin 19.5 g/dL (14.0-18.0); Immature Granulocyte Absolute 0.04 K/mm3 (0.00-0.031); Immature Granulocyte Percent A 0.4 % (0-0.5); Lymphocytes Absolute Auto 2.16 K/mm3 (0.9-3.2); Lymphocytes Percent Auto 19.7 % (18.3-44.2); Mean Corpuscular HGB Conc 34.8 g/dl (32-36); Mean Corpuscular Hemoglobin 34.8 pg (26-34); Mean Corpuscular Volume 99.8 fl (80-100); Mean Platelet Volume 8.8 fl (7.4-10.4); Monocytes Percent Auto 9.3 % (2.6-8.5); Neutrophils Absolute Auto 7.4 K/mm3 (1.3-6.7); Neutrophils Percent Auto 67.1 % (45.5-73.1); Platelet Count Result 347 k/mm3 (150-375); Red Blood Count 5.61 M/mm3 (4.6-6.20); Red Cell Distribution Width 13.1 % (11.5-14.5)
[2024-07-30 11:27] LABS: Alanine Aminotransferase 201 U/L (6-50); Albumin Level 4.3 g/dL (3.5-5.1); Alkaline Phosphatase 107 U/L (38-126); Anion Gap 12 mmol/L (4-12); Aspartate Amino Transferase 244 U/L (17-59); Bilirubin,Total 1.1 mg/dL (0.2-1.3); Blood Urea Nitrogen 5 mg/dL (9-20); Calcium 9.7 mg/dL (8.4-10.2); Carbon Dioxide 28 mmol/L (22-30); Chloride 100 mmol/L (98-107); Estimated CRCL calculation 113 ml/min; Estimated Glomerular Filt Rate > 60; Glucose 107 mg/dL (65-110); Lipase 83 U/L (23-300); Potassium 4.4 mmol/L (3.4-5.0); Sodium 140 mmol/L (137-145)
--- NOTE | 2024-07-30 12:25 | ED_ITS ---
HPI - Abdominal Pain General Chief Complaint: Abdominal Pain Stated Complaint: abd pain Time Seen by Provider: 07/30/24 12:04 History of Present Illness HPI narrative: 59-year-old male with a past medical history including previous diverticulitis flares, known diverticulosis and internal hemorrhoids and recent colonoscopy 04/13/2024 with his armhole raiser lockstitch Dr. Vasquez. patient states he has been having 5-6 days of midline lower abdominal pain and feels very similar to his previous diverticulitis flares. No recent injuries, illnesses, nausea, vomiting or diarrhea. He notes some internal hemorrhoids with bleeding when he wipes. Denies any rectal pain or vomiting. He has similar flare-up several months ago requiring antibiotics for treatment. No history of abdominal surgeries for this. Denies any chest pain, shortness a breath, nausea, vomiting, weakness, fatigue, syncope. Was otherwise in his normal state of health. Related Data Home Medications ?Medication ?Instructions ?Recorded ?Confirmed ?Last Taken ?Type albuterol sulfate 90 mcg/actuation 2 puff inhalation Q4-6H PRN 03/23/23 04/13/24 03/16/24 History aerosol inhaler Shortness Of Breath Or Wheezing lisinopril 20 mg tablet 20 mg PO DAILY 03/30/24 04/13/24 04/13/24 08:00 History Allergies Allergy/AdvReac Type Severity Reaction Status Date / Time ampicillin AdvReac Unknown Verified 07/30/24 09:02 Penicillins AdvReac Unknown Verified 07/30/24 09:02 Review of Systems 2 Review of Systems: As reviewed above in HPI [facility] Past Medical History Medical History History of diverticulitis of colon Diverticulitis Nicotine dependence, cigarettes, with other nicotine-induced disorders Chronic lumbar pain Hypertension Surgical History Surgical History History of lumbar spinal fusion Family History Family History Other Unknown family medical history Social History Social History Smoking packs per day: 1 Smoking cigarettes per day: 20.0 Years smoked: 40 Smoking pack-years: 40.00 Smoking status: Current every day smoker Tobacco type: cigarettes Alcohol intake: current Drinks per week: 49 Alcohol use details: pt states a lot Substance use: current Substance use type: marijuana Other substance usage details: 3 TIMES PER DAY Do You Feel Safe in your Home?: Yes Lack of Transportation: No Lack of Food: Often True Current Housing: I Have Housing Concerned About Future Housing: No Difficulty Paying Gas/Electric Bills: No Difficulty Paying for Meds: No Currently Unemployed: No Education: Grade School Difficulty w/ Childcare or Family Care: No Living arrangements: alone Spiritual care concerns: No Exam 2 Narrative: GENERAL: [Well-appearing, well-nourished, and in no acute distress.] HEAD: [Normocephalic, atraumatic.] EYES: [PERRLA and EOMI.] ENT: Nares clear, no rhinorrhea or epistaxis. Mucous membranes moist. NECK: Supple. CHEST: [Clear to auscultation. No respiratory distress.] HEART: [Regular rate and rhythm]. No murmur heard. [Normal peripheral pulses.] ABDOMEN: [Soft, nondistended], [nontender], [No rigidity or guarding] EXTREMITIES: Normal range of motion. [No edema.] SKIN: Warm, dry, no rash. NEURO: [No focal deficits]. Alert and oriented [x3.] PSYCH: [Normal mood and affect.] Course Vital Signs Vital signs: Vital Signs Temperature 36.6 C 07/30/24 09:03 Pulse Rate 90 07/30/24 09:03 Respiratory Rate 20 07/30/24 09:03 Blood Pressure 175/92 H 07/30/24 09:03 Pulse Oximetry 98 07/30/24 09:03 Oxygen Delivery Room Air 07/30/24 09:03 Temperature 36.6 C 07/30/24 09:03 Pulse Rate 77 07/30/24 14:01 Respiratory Rate 20 07/30/24 14:01 Blood Pressure 128/99 H 07/30/24 14:01 Pulse Oximetry 93 07/30/24 14:01 Oxygen Delivery Room Air 07/30/24 09:03 MDM - Abdominal Pain MDM Narrative Medical decision making narrative: 59-year-old male with a past medical history of previous diverticulitis, no diverticula, internal hemorrhoids and recent colonoscopy 3 months prior. Patient presents with 5-6 days of lower midline abdominal pain that feels very similar to his previous diverticulitis flares. He is otherwise well-appearing, not any acute distress, has a soft nontender nondistended abdomen. He is afebrile, normal vital signs without any significant hypertension, tachycardia, fever or hypoxia. Differential includes gastroenteritis, diverticulitis, less likely intra-abdominal process such as perforation or appendicitis or abscess formation. Laboratory studies including CBC, CMP and a CT scan of the abdomen pelvis with IV contrast was ordered. He was given morphine for analgesia and re-evaluated. Lactated Ringer bolus for hydration. Laboratory studies show a slight leukocytosis 11.0, not markedly elevated, appears hemoconcentrated with elevated hemoglobin as well. Normal platelet count. Electrolytes within normal limits, normal renal function, normal creatinine, normal glucose. LFTs mildly elevated however he has previous elevations in this range, no significant elevations. Normal lipase. Normal bilirubin. Urinalysis negative for infection. CT scan shows sigmoid diverticulosis without diverticulitis, some cholelithiasis seen which explains his LFTs, no other acute intra-abdominal process needing attention. Went and re-evaluated the patient with symptomatic improvement. We went over the CT scan and imaging results as well as the laboratory assessment. He is safe and stable for discharge home at this time with regular PCP and GI follow-up as needed and given return precautions. Patient verbalized understanding and was safe for discharge home at this time. Medical Records Attestation: I reviewed the patient's medical records. Lab Data Attestation: I reviewed the patient's lab results. 07/30/24 11:09 07/30/24 11:09 Labs: Lab Results 07/30/24 07/30/24 Range/Units 11:09 14:10 WBC 11.0 H (4.5-10.0) K/mm3 RBC 5.61 (4.6-6.20) M/mm3 Hgb 19.5 H (14.0-18.0) g/dL Hct 56.0 H (42.0-52.0) % MCV 99.8 (80-100) fl MCH 34.8 H (26-34) pg MCHC 34.8 (32-36) g/dl RDW 13.1 (11.5-14.5) % Plt Count 347 (150-375) k/mm3 MPV 8.8 (7.4-10.4) fl Immature Gran % (Auto) 0.4 (0-0.5) % Neut % (Auto) 67.1 (45.5-73.1) % Lymph % (Auto) 19.7 (18.3-44.2) % [place] % (Auto) 9.3 H (2.6-8.5) % Eos % (Auto) 2.2 (0-4.4) % Baso % (Auto) 1.3 H (0.2-1.2) % Lymph # (Auto) 2.16 (0.9-3.2) K/mm3 [place] # (Auto) 1.0 H (0.1-0.6) K/mm3 Eos # (Auto) 0.2 (0-0.3) K/mm3 Baso # (Auto) 0.1 (0.0-0.1) K/mm3 Abs Immat Gran (auto) 0.04 H (0.00-0.031) K/mm3 Absolute Neuts (auto) 7.4 H (1.3-6.7) K/mm3 Absolute Nucleated RBC 0.000 (0.0-0.012) K/mm3 Nucleated RBC % 0.0 (0.0-0.2) % Sodium 140 (137-145) mmol/L Potassium 4.4 (3.4-5.0) mmol/L Chloride 100 (98-107) mmol/L Carbon Dioxide 28 (22-30) mmol/L Anion Gap 12 (4-12) mmol/L BUN 5 L D (9-20) mg/dL Creatinine 0.68 L (0.7-1.3) mg/dL Estim Creat Clear Calc 113 ml/min Estimated GFR > 60 (59 - ) Glucose 107 (65-110) mg/dL Calcium 9.7 (8.4-10.2) mg/dL Total Bilirubin 1.1 (0.2-1.3) mg/dL AST 244 H (17-59) U/L ALT 201 H (6-50) U/L Alkaline Phosphatase 107 (38-126) U/L Total Protein 8.0 (6.3-8.2) g/dL Albumin 4.3 (3.5-5.1) g/dL Lipase 83 (23-300) U/L Urine Color Yellow (Yellow) Urine Appearance Clear (Clear) Urine pH 5.0 (5.0-9.0) Ur Specific [place] 1.045 H (1.001-1.035) Urine Protein Trace (Negative) mg/dL Urine Glucose (UA) Negative (Negative) mg/dL Urine Ketones Negative (Negative) mg/dL Ur Blood (Man) Negative (Negative) Urine Nitrate Negative (Negative) Urine Bilirubin Negative (Negative) Urine Urobilinogen 1.0 (<2.0) mg/dL Leukocyte Esterase Rfl Negative (Negative) PERLA/UL Urine RBC 0-2 (0-2) /hpf Urine WBC 0-5 (0-3) /hpf Ur Squamous Epith Cells None seen (Few) /hpf Urine Bacteria None seen /hpf Urine Casts 0-2 Imaging Data Attestation: I personally reviewed and interpreted this imaging study as follows: Radiologist's impression: ITS Impressions Abdomen/Pelvis CT 07/30/24 12:32 IMPRESSION: 1. Moderate sigmoid diverticulosis without evident diverticulitis although this is a clinical diagnosis. 2. Cholelithiasis. 3. Small sliding-type hiatal hernia. 4. Small fat-containing bilateral inguinal hernias. Discharge Plan Discharge Clinical Impression: Abdominal pain, Diverticulosis, Gallstones Patient Disposition: Home, Self-Care Condition: Stable Instructions: Antibiotic Form, Hemorrhoids (DC), Diverticulosis (DC), Abdominal Pain (ED) Additional Instructions: your CT scan shows no active diverticulitis, we will send you home with some pain control medications as well as Zofran if you develop any nauseousness. Follow-up with your GI doctor on outpatient basis, return with any new or worsening concerns at any time. You do have evidence of gallstones which have been seen on previous CT scan images. no signs of active infection. Follow-up with your regular doctor about this. Patient Language: Chadian Prescriptions: New tramadol 25 mg tablet 25 mg PO Q6H PRN (Reason: pain) 3 Days Qty: 14 0RF ondansetron 4 mg tablet,disintegrating 4 mg PO Q8H PRN (Reason: nausea and vomiting) Qty: 10 0RF No Action albuterol sulfate 90 mcg/actuation HFA aerosol inhaler 2 puff INHALATION Q4-6H PRN (Reason: Shortness Of Breath Or Wheezing) lisinopril 20 mg tablet 20 mg PO DAILY Follow-up/Referrals: Mesfin Cortes MD [Primary Care Provider] - Time of Disposition: 14:50
--- OUTSIDE RECORDS SUMMARY | 2024-07-30 12:37 | XMS_ITS | Referral Summary ---
Author Organization [facility] Address [address] [place] [address] Care Team Providers Care Senior Speech Pathologist Name Role Phone Mesfin Cortes MD Primary Care Provider [phone] Source Comments [facility],non-owned Affiliates and Associated Physician Practices is amultiple site organization consisting of ambulatory clinics and hospital sitesin [place], [place], [place] and [place]. This disclosure is being madepursuant to the Care Everywhere program and may not contain all information available regarding this patient. 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 Oxygen Saturation 93% 10/07/2023 8:3 3 [...] on file Medical Devices Implanted Type Area Groundsman Device Identifier Shelf Expiration Date Model / Serial / Lot Screw Set Ti Spnl Brk Off Cd Hzn Nonster - Sn/A Implanted:Qty: 4 on 09/16/2020 by Jonathan Broussard MD at [facility] N/A: Spine Lumbar Medtronic Sof[employer]or [employer] 09/16/2030 [id number] / N/A / N/A Screw 7.5mm 35mm Ma Spne Solera Cd Hzn - Sn/A Implanted:Qty: 2 on 09/16/2020 by Jonathan Broussard MD at [facility] N/A: Spine Lumbar Medtronic Sof[employer]or [employer] 09/16/2030 [id number] / N/A / N/A Screw 7.5mm 40mm Ma Spne Solera Cd Hzn - Sn/A Implanted:Qty: 2 on 09/16/2020 by Jonathan Broussard MD at [facility] N/A: Spine Lumbar Medtronic Sofamor [employer] 09/16/2030 [id number] / N/A / N/A Agent Hmst Evithrom Geltn Top Kt Ndlfr - Sn/A Implanted:Qty: 2 on 09/16/2020 by Jonathan Broussard MD at [facility] N/A: Spine Lumbar [employer] Inc 06/29/2021 [id number] / N/A / [id number] Graft Bone Grftn Dbm 5x2.5cm - [id number] Implanted:Qty: 1 on 09/16/2020 by Jonathan Broussard MD at [facility] N/A: Spine Lumbar [employer] Inc 07/06/2023 [id number] DUPLICATE / [id number] / N/A Spcr 18 Deg 14x22 - Sn/A Implanted:Qty: 1 on 09/16/2020 by Jonathan Broussard MD at [facility] N/A: Spine Lumbar Medtronic Sofamor [employer] 02/28/2026 [id number] / N/A / [id number] Spcr 18 Deg 14x22 - Sn/A Implanted:Qty: 1 on 09/16/2020 by Jonathan Broussard MD at [facility] N/A: Spine Lumbar Medtronic Sof[employer]or [employer] 11/12/2026 [id number] / N/A / [id number] Agus Spnl 50mm 5.5mm Cd Hzn Crv [place] - Sn/A Implanted:Qty: 2 on 09/16/2020 by Jonathan Broussard MD at [facility] N/A: Spine Lumbar Medtronic Inc 09/16/2030 [id number] / N/A / N/A Procedures Procedure Name [...] 7 - 26 mg/dL 09/19/2020 4:04 AM [facility] Creatinine 1.0 0.6 - 1.2 mg/dL 09/19/2020 4:04 AM [facility] Sodium 141 136 - 145 mmol/L 09/19/2020 4:04 AM [facility] Potassium 3.8 3.5 - 4.5 mmol/L 09/19/2020 4:04 AM [facility] Chloride 101 98 - 107 mmol/L 09/19/2020 4:04 AM [facility] CO2 27 22 - 29 mmol/L 09/19/2020 4:04 AM [facility] Glucose 97 70 - 115 mg/dL 09/19/2020 4:04 AM [facility] Calcium 9.2 8.4 - 10.2 mg/dL 09/19/2020 4:04 AM [facility] Anion Gap 17 8 - 18 09/19/2020 4:04 AM [facility] BUN/Creatinine Ratio 15 7 - 23 09/19/2020 4:04 AM [facility] Osmolality Calculated 293 270 - 300 mOsm/kg 09/19/2020 4:04 AM [facility] eGFR >60 >60 mL/min/1.7 3 m2 09/19/2020 4:04 AM [facility] Blood BLOOD SPECIMEN / Unknown Lab Venipuncture / Unknown 09/19/2020 1:44 AM CDT 09/19/2020 3:30 AM T Jonathan Broussard MD LAB - CHEMISTRY ORDERABLES [facility] [address] [place] [address], [facility] [phone] from Last 3 Months or Most Recently Relevant to Health Maintenance Advance Directives * Full Code (Latest Code Status on File) Date Activated Date Inactivated Comments 09/16/2020 2:19 PM 09/19/2020 11:55 AM Care Teams Senior Speech Pathologist Relationship Specialty Start Date End Date Mesfin Cortes MD [address] [place] [id number] PCP - General 06/08/22
--- OUTSIDE RECORDS SUMMARY | 2024-07-30 12:37 | XMS_ITS | Clinical Summary ---
Author Organization [facility] Address [address] [place] [address] Phone Care Team Providers Care Exec. Creative Director Name Role Phone Mesfin Cortes MD Primary Care Provider [phone] Philippe Sunshine MD Unavailable Allergies Active Allergy [...] Department Care Team Description 06/09/2024 8:00 AM SQL DATABASE ADMINISTRATOR Office Visit [facility] [address] [address] Philippe Sunshine MD Leukocytosis, unspecified type (Primary Dx); Elevated hematocrit; Thrombocytosis; Clonal hematopoiesis of indeterminate potential (CHIP); Tobacco abuse 06/09/2024 7:50 AM SQL DATABASE ADMINISTRATOR Lab [facility] [address] [phone] Lab, Cc Mandy Leukocytosis, unspecified type 06/09/2024 [...] Comments Blood Pressure 140/88 06/09/2024 8:30 AM SQL DATABASE ADMINISTRATOR Pulse 98 06/09/2024 8:30 AM SQL DATABASE ADMINISTRATOR Temperature 37 C (98.6 F) 06/09/2024 8:30 AM SQL DATABASE ADMINISTRATOR Respiratory Rate 18 06/09/2024 8:30 AM SQL DATABASE ADMINISTRATOR Oxygen Saturation 97% 06/09/2024 8:30 AM SQL DATABASE ADMINISTRATOR Inhaled Oxygen Concentration - - Weight 90 kg (198 lb 8 oz) 06/09/2024 8:30 AM CS T Height 177.8 cm (5' 10 ) 06/09/2024 8:30 AM SQL DATABASE ADMINISTRATOR Body Mass Index 28.48 06/09/2024 8:30 AM SQL DATABASE ADMINISTRATOR Plan of Treatment Upcoming Encounters Date Type Department Care Team (Late st Contact Info) Description 09/08/2024 7:45 AM CDT Lab [facility] [address] [phone] Lab, Laurel Johnson [place] 09/08/2024 8:00 AM CDT Office Visit [facility] [address] [phone] Philippe Sunshine MD [address] [place] [id number] Health Maintenance Due Date Last Done Comments [...] AUTO DIFF OH Routine 06/09/2024 8:02 AM SQL DATABASE ADMINISTRATOR LACTATE DEHYDROGENASE (LD) Routine 06/09/2024 8:02 AM SQL DATABASE ADMINISTRATOR Leukocytosis, unspecified type from Last 3 Months Results * (ABNORMAL) CBC WITH AUTO DIFF [place] (06/09/2024 8:02 AM SQL DATABASE ADMINISTRATOR) WBC 10.9(H) 4.0 - 10.0 10*3/uL [facility] HGB 19.0(H) 13.7 - 17.5 g/dL [facility] HCT 55.3(H) 40.1 - 51.0 % [facility] PLT 303 163 - 369 10*3/uL [facility] MPV 8.7(L) 9.4 - 12.4 fL [facility] RBC 5.47 4.63 - 6.08 10*6/uL [facility] MCV 101(H) 79 - 95 fL [facility] MCH 34.7(H) 25.6 - 32.2 pg [facility] MCHC 34.4 32.2 - 36.5 g/dL [facility] RDW 14.2 11.6 - 14.4 % [facility] Neutrophils % 64.7 36.0 - 66.0 % [facility] Lymphocytes % 21.9 19.0 - 40.0 % [facility] Monocytes % 8.8 4.1 - 12.1 % [facility] Eosinophils % 3.1 0.0 - 3.5 % [facility] Basophils % 1.0 0.0 - 1.0 % [facility] Absolute Neutrophils 7.1(H) 1.4 - 6.6 10*3/uL [facility] Absolute Lymphocytes 2.4 0.8 - 4.0 10*3/uL [facility] Absolute Monocytes 1.0 0.2 - 1.2 10*3/uL [facility] Absolute Eosinophils 0.3 0.0 - 0.4 10*3/uL [facility] Absolute Basophils 0.1 0.0 - 0.1 10*3/uL [facility] 06/09/2024 8:02 AM SQL DATABASE ADMINISTRATOR us Philippe Sunshine MD LAB SEND OUTS Final Result [facility] [address] [place] [address], [place] [phone] * LACTATE DEHYDROGENASE (LD) (06/09/2024 8:02 AM SQL DATABASE ADMINISTRATOR) LDH 226 140 - 271 U/L [facility] Blood 06/09/2024 8:02 AM SQL DATABASE ADMINISTRATOR Narrative [facility] - 06/09/2024 9:21 AM SQL DATABASE ADMINISTRATOR Release to patient->Immediate us Philippe Sunshine MD CHEMISTRY ORDERABLES Final Resul t [facility] [place] [address] [address] [place] [address], [place] [phone] from Last 3 Months Insurance MEDICAID [facility] MEDICARE MEDICAID [place] Care Teams Exec. Creative Director Relationship Specialty Start Date End Date Mesfin Cortes MD [address] [place] [address] PCP - General Family Medicine 08/14/23 Philippe Sunshine MD [address] [place] [address] Consulting Physician Oncology 02/21/24
--- OUTSIDE RECORDS SUMMARY | 2024-07-30 12:38 | XMS_ITS | CONTINUITY OF CARE DOCUMENT ---
Author Name tab joyfrancisco Address Unknown Organization [facility] Address [address] [place] [address] Phone [phone] Care Team Providers Care Corsage Maker Name Role Phone Karie SHIN, Izaiah Rosenberg Unavailable [phone] HIRAM ORTIZ MD Unavailable [phone] HIRAM ORTIZ MD Unavailable [phone] PROBLEMS Condition Status Date Provider Notes Cardiology [...] In-person encounter Office Visit Izaiah Tiwari MD [facility] 04/04 - 04/05 In-person encounter Office Visit Izaiah Tiwari MD [facility] Cardiology examinationHypertensionHypercholesterolemiaHyperlipi demiaEthanol abuseBack painElevated liver [...] Payer name Policy type / Coverage type formerly [facility] Medicaid 9 [id number] [place] MED[place]ARE Medicare [id number] ADVANCE DIRECTIVES Name Date DISCUSSED - NO DECISION MADE TREATMENT PLAN Date Name Performer [id number],C, W ill do cardiac workup once his numbers are established May 08, 2023 R eviewed echo, EF 50% and very minimal valvular disease. He overall feels better since getting over diverticulitis. Izaiah Tiwari MD [id number],C,D iscussion of benefits for remote patient monitoring took place. Patient gives consent for remote monitoring of physiologic parameters including, but not limited to, weight, blood pressure, pulse oximetry, respiratory flow rate. His updated medication list for this problem includes: Lisinopril 20 Mg Tablet (Lisinopril) BP today: 113/76 P rior BP: 124/83 (04/04/2023) Izaiah Tiwari MD [id number],S,L iver enzymes reviewed looked ok on bloodwork R emains on lipitor Izaiah Tiwari MD [id number],S,Stopped alcoh ol consumption Izaiah Tiwari MD [id number],C, T he Patient was reencouraged to stop smoking. Izaiah Tiwari MD [id number],C, H is updated medication list for this problem includes: Vascepa 1 Gram Capsule (Icosapent ethyl) ..... Take 2 capsules by mouth twice daily Fenofibrate Micronized 134 Mg Capsule (Fenofibrate micronized) Izaiah Tiwari MD [id number],C,T he Patient was reencouraged to stop smoking. Izaiah Tiwari MD [id number],C, H is updated medication list for this problem includes: Lisinopril 20 Mg Tablet (Lisinopril) BP today: 124/83 n eeds echo done for LVH evaluation D iscussion of benefits for remote patient monitoring took place. Patient gives consent for remote monitoring of physiologic parameters including, but not limited to, weight, blood pressure, pulse oximetry, respiratory flow rate. Izaiah Tiwari MD [id number],C,W ill do cardiac workup once his numbers are established Izaiah Tiwari MD [id number],S,u nderlying problem forcing him for etoh abuse, needs to be seen by pain specilaist Izaiah Tiwari MD [id number],C,H eavy etoh consumption as noted above could [...] would recheck liver enzymes Izaiah Tiwari MD [id number],C,H eavy etoh consumption as noted above could have lead to his elkevated LFTs usually statins are safe to use until the levels of transaminases increase to more than 3 times baseline values, discontinuation of the drug should be considered.. Izaiah Tiwari MD [id number],C,h igh trigs, probably related to etoh consumption, would be worth rechecking and start fish oil 4g daily to reduce his trigs, contiune fenofibrate m onitor LFTS regularly, i suspect they will come down in next months Izaiah Tiwari MD [id number],C, His AST was 96 and 3x cut [...]
--- OUTSIDE RECORDS SUMMARY | 2024-07-30 12:38 | XMS_ITS | Clinical Summary ---
Author Organization [facility] Address [facility] [place] [address] Care Team Providers Care Food Safety Officer Name Role Phone Mesfin Cortes MD Primary Care Provider [phone] Allergies Active Allergy Reactions Criticality Noted Date [...] on file Legal Sex Male 8:38 AM SENIOR MANAGEMENT CONSULTANT Gender Identity Not on file Sexual Orientation Not on file Last Filed Vital Signs Vital Sign Reading Time Taken Comments Blood Pressure 154/90 08/06/2023 11:00 AM SENIOR MANAGEMENT CONSULTANT Pulse 66 08/06/2023 10:30 AM SENIOR MANAGEMENT CONSULTANT Temperature 36.7 C (98.1 F) 08/06/2023 11:00 AM SENIOR MANAGEMENT CONSULTANT Respiratory Rate 16 08/06/2023 11:0 0 AM SENIOR MANAGEMENT CONSULTANT Oxygen Saturation 97% 08/06/2023 11: 00 AM SENIOR MANAGEMENT CONSULTANT Inhaled Oxygen Concentration - - Weight 88.8 kg (195 lb 12.3 oz) 08/06/2023 8:21 AM SENIOR MANAGEMENT CONSULTANT Height 182.9 cm (6') 08/06/2023 8:21 AM SENIOR MANAGEMENT CONSULTANT Body Mass Index 26.55 08/06/2023 8:21 AM SENIOR MANAGEMENT CONSULTANT Plan of Treatment Health Maintenance Due Date [...] this topic Insurance MEDICARE MEDICAID Care Teams Food Safety Officer Relationship Specialty Start Date End Date Mesfin Cortes MD [phone] [address] PCP - General FAMILY PRACTICE 08/06/23
--- OUTSIDE RECORDS SUMMARY | 2024-07-30 12:38 | XMS_ITS | Patient Health Summary ---
Author Organization [facility] Address [address] [place] [address] Care Team Providers Care Wire Bender Hand Name Role Phone Mesfin Cortes MD Primary Care Provider [phone] Note from [facility],non-owned Affiliates and Associated Physician Practices is amultiple site organization consisting of ambulatory clinics and hospital sitesin [place], [place], [place] and [place]. This disclosure is being madepursuant to the Care Everywhere program and may not contain all information available regarding this patient. Last updated 18.[facility] Allergies * Ampicillin(GI Discomfort) * Penicillins(GI Discomfort) Medications * Be aware that medications may not be up to date on this document. Alwaysverify current medications with the patient. * atorvastatin (LIPITOR) 20 MG tablet(Started 07/18/2020) Take 1 (one) tablet by mouth once daily * vitamin D, ergocalciferol, (Drisdol) 1.25 MG (31361 UT) capsule(Started 06/13/2022) Take 1 (one) capsule [...] (one) tablet by mouth once daily * [place]-3 Fatty Acids (fish oil) 1000 MG capsule [...] CDT Respiratory Rate 18 08/13/2022 8:59 AM ELECTRICIAN SUPERVISOR Oxygen Saturation 93% 10/07/2023 8:3 3 AM CDT Inhaled Oxygen Concentration - - Weight 87.5 kg (193 lb) 10/07/2023 8:33 AM CDT Height 177.8 cm (5' 10 ) 10/07/2023 8:3 3 AM CDT Body Mass Index 27.69 10/07/2023 8:33 AM CDT Medical Devices Implanted Type Area Sales Special Agent Device Identifier Shelf Expiration Date Model / Serial / Lot Screw Set Ti Spnl Brk Off Cd Hzn Nonster - Sn/A Implanted:Qty: 4 on 09/16/2020 by Jonathan Broussard MD at [facility] N/A: Spine Lumbar Medtronic Sofamor [employer] 09/16/2030 [id number] / N/A / N/A Screw 7.5mm 35mm Ma Spne Solera Cd Hzn - Sn/A Implanted:Qty: 2 on 09/16/2020 by Jonathan Broussard MD at [facility] N/A: Spine Lumbar Medtronic Sofamor [employer] 09/16/2030 [id number] / N/A / N/A Screw 7.5mm 40mm Ma Spne Solera Cd Hzn - Sn/A Implanted:Qty: 2 on 09/16/2020 by Jonathan Broussard MD at [facility] N/A: Spine Lumbar Medtronic Sofamor [employer] 09/16/2030 [id number] / N/A / N/A Agent Hmst Evithrom Geltn Top Kt Ndlfr - Sn/A Implanted:Qty: 2 on 09/16/2020 by Jonathan Broussard MD at [facility] N/A: Spine Lumbar [employer] 06/29/2021 [id number] / N/A / [id number] Graft Bone Grftn Dbm 5x2.5cm - [id number] Implanted:Qty: 1 on 09/16/2020 by Jonathan Broussard MD at [facility] N/A: Spine Lumbar [employer] Inc 07/06/2023 [id number] DUPLICATE / [id number] / N/A Spcr 18 Deg 14x22 - Sn/A Implanted:Qty: 1 on 09/16/2020 by Jonathan Broussard MD at [facility] N/A: Spine Lumbar Medtronic Sofamor [employer] 02/28/2026 [id number] / N/A / [id number] Spcr 18 Deg 14x22 - Sn/A Implanted:Qty: 1 on 09/16/2020 by Jonathan Broussard MD at [facility] N/A: Spine Lumbar Medtronic Sofamor [employer] 11/12/2026 [id number] / N/A / [id number] Agus Spnl 50mm 5.5mm Cd Hzn Crv [place] - Sn/A Implanted:Qty: 2 on 09/16/2020 by Jonathan Broussard MD at [facility] N/A: Spine Lumbar Medtronic Inc 09/16/2030 [id number] / N/A / N/A Procedures * IMAGING/RADIOLOGY/XRAY [...] WITH NERVE CONDUCTION STUDY (06/13/2021 10:24 AM ELECTRICIAN SUPERVISOR) Kelsae Beach MD - 06/13/2021 10:24 AM ELECTRICIAN SUPERVISOR Kelsea Frederick MD 06/13/2021 11:10 AM Electrodiagnostic [...] AM CDT) Unit Description AS1 LR PRBC [facility] Unit ABO A [facility] Unit Rh POS [facility] Product Number R02 [facility] Unit Donor # [id number] [facility] Unit Status released [facility] Product Code [id number] [facility] Blood Type Barcode 6200 [facility] Expiration Date S BLOOD BANK LAB Unit Description AS1 LR PRBC [facility] Unit ABO A [facility] Unit Rh POS [facility] Product Number R44 [facility] Unit Donor # [id number] [facility] Unit Status released [facility] Product Code [id number] [facility] Blood Type Barcode 6200 [facility] Expiration Date S BLOOD BANK LAB Blood Bank BLOOD SPECIMEN / Unknown 09/16/2020 6:41 AM CDT Jonathan Broussard MD LAB - BLOOD BANK ORDERABLES [facility] [address] [place] [address], [facility] [phone] * (ABNORMAL) DIFFERENTIAL MANUAL (09/19/2020 1:44 AM CDT) Only the most recent of3 resultswithin the time period is included. [facility] WBC (corrected for NRBC) 15.2 10 3/uL 09/19/2020 4:41 AM [facility] Total Cell Count 100 09/19/2020 4:41 AM [facility] Neutrophils Absolute Manual 9.27(H) 1.60 - 7.00 10 3/uL 09/19/2020 4:41 AM [facility] Comment:(BANDS+SEGS) x WBC = NEUT # (ANC) Lymphocyte Absolute Manual 4.86(H) 0.80 - 2.90 10 3/uL 09/19/2020 4:41 AM [facility] Monocytes Absolute Manual 0.76(H) 0.14 - 0.66 10 3/uL 09/19/2020 4:41 AM [facility] Eosinophils Absolute Manual 0.30(H) 0.00 - 0.22 10 3/uL 09/19/2020 4:41 AM [facility] Neutrophil % Manual 61(H) 30 - 60 % 09/19/2020 4:41 AM [facility] Lymphocyte % Manual 32 20 - 45 % 09/19/2020 4:41 AM [facility] Monocytes % Manual 5 2 - 10 % 09/19/2020 4:41 AM [facility] Eosinophils % Manual 2 1 - 6 % 09/19/2020 4:41 AM [facility] Platelet Estimate Adequate Adequate 09/19/2020 4:41 AM [facility] RBC Morphology Normal 09/19/2020 4:41 AM [facility] Blood BLOOD SPECIMEN / Unknown Lab Venipuncture / Unknown 09/19/2020 1:44 AM CDT 09/19/2020 3:34 AM CDT Jonathan Broussard MD LAB - HEMATOLOGY ORDERABLES Performing Organization Address City/State/[place] Co de Phone Number [facility] [address] [place] [phone], [facility] [phone] * (ABNORMAL) CBC W AUTO DIFFERENTIAL (09/19/2020 1:44 AM CDT) Only the most recent of4 resultswithin the time period is included. WBC 15.2(H) 3.5 - 10.5 10 3/uL 09/19/2020 3:53 AM [facility] RBC 3.40(L) 4.30 - 5.70 10 6/uL 09/19/2020 3:53 AM [facility] Hemoglobin 10.7(L) 13.5 - 17.5 g/dL 09/19/2020 3:53 AM [facility] Hematocrit 32.2(L) 39.0 - 50.0 % 09/19/2020 3:53 AM [facility] MCV 94.7 81.0 - 97.0 fL 09/19/2020 3:53 AM [facility] MCH 31.5 28.0 - 34.0 pg 09/19/2020 3:53 AM [facility] MCHC 33.2 32.0 - 36.0 g/dL 09/19/2020 3:53 AM [facility] Platelet Count 357 150 - 400 10 3/uL 09/19/2020 3:53 AM [facility] RDW-SD 42.6 36.0 - 50.0 fL 09/19/2020 3:53 AM [facility] RDW-CV 12.2 11.2 - 14.8 % 09/19/2020 3:53 AM [facility] MPV 10.3 9.3 - 12.8 fL 09/19/2020 3:53 AM [facility] nRBC Absolute 0.00 0 10 3/uL 09/19/2020 3:53 AM [facility] nRBC Auto 0.0 0 /100 WBC 09/19/2020 3:53 AM [facility] Blood BLOOD SPECIMEN / Unknown Lab Venipuncture / Unknown 09/19/2020 1:44 AM CDT 09/19/2020 3:34 AM CDT Jonathan Broussard MD LAB - HEMATOLOGY ORDERABLES [address] [address], [facility] [phone] * BASIC METABOLIC PANEL (CALCIUM TOTAL) (09/19/2020 1:44 AM CDT) Only the most recent of3 resultswithin the time period is included. BUN 15 7 - 26 mg/dL 09/19/2020 4:04 AM [facility] Creatinine 1.0 0.6 - 1.2 mg/dL 09/19/2020 4:04 AM [facility] Sodium 141 136 - 145 mmol/L 09/19/2020 4:04 AM [facility] Potassium 3.8 3.5 - 4.5 mmol/L 09/19/2020 4:04 AM [facility] Chloride 101 98 - 107 mmol/L 09/19/2020 4:04 AM [facility] CO2 27 22 - 29 mmol/L 09/19/2020 4:04 AM [facility] Glucose 97 70 - 115 mg/dL 09/19/2020 4:04 AM [facility] Calcium 9.2 8.4 - 10.2 mg/dL 09/19/2020 4:04 AM [facility] Anion Gap 17 8 - 18 09/19/2020 4:04 AM [facility] BUN/Creatinine Ratio 15 7 - 23 09/19/2020 4:04 AM [facility] Osmolality Calculated 293 270 - 300 mOsm/kg 09/19/2020 4:04 AM [facility] eGFR >60 >60 mL/min/1.7 3 m2 09/19/2020 4:04 AM [facility] Blood BLOOD SPECIMEN / Unknown Lab Venipuncture / Unknown 09/19/2020 1:44 AM CDT 09/19/2020 3:30 AM CDT Jonathan Broussard MD LAB - CHEMISTRY ORDERABLES [address] [address], [facility] [phone] * PHOSPHORUS BLOOD (09/19/2020 1:44 AM CDT) Only the most recent of3 resultswithin the time period is included. Pathologist [facility] Phosphorus 4.4 2.3 - 4.7 mg/dL 09/19/2020 4:04 AM [facility] Blood BLOOD SPECIMEN / Unknown Lab Venipuncture / Unknown 09/19/2020 1:44 AM CDT 09/19/2020 3:30 AM CDT Jonathan Broussrad MD LAB - CHEMISTRY ORDERABLES [address] [address], [place] [phone] * MAGNESIUM BLOOD (09/19/2020 1:44 AM CDT) Only the most recent of3 resultswithin the time period is included. Magnesium 2.0 1.6 - 2.6 mg/dL 09/19/2020 4:04 AM CDT [facility] Blood BLOOD SPECIMEN / Unknown Lab Venipuncture / Unknown 09/19/2020 1:44 AM CDT 09/19/2020 3:30 AM CDT Jonathan Broussard MD LAB - CHEMISTRY ORDERABLES [facility] [address] [place] [address], [facility] [phone] * XR LUMBAR SPINE 2 OR 3VW (09/17/2020 9:25 AM CDT) Anatomical Region Laterality Modality Spine Radiographic Rosemarie ging 09/17/2020 9:28 AM CDT Impressions 09/20/2020 5:42 PM CDT IMPRESSION: Posterior spinal fusion of L5-S1. Mild grade 1 anterolisthesis of L5 on S1, decreased since 04/28/2018. Dictated by Adelina Duran DO (director of radiology). I, Dr. DIANA PANTOJA M.D. have personally [...] since 04/28/2018. Dictated by Adelina Duran DO (director of radiology). IDr. DIANA M.D. have personally reviewed and [...] for details Dictated by Jorge Rushing D.O. (director of radiology). Dr. AWA Jaimes have personally reviewed and [...] for details Dictated by Jorge Rushing D.O. (director of radiology). I, Dr. AWA ENNIS have personally reviewed and interpreted this examination/study. This report was electronically signed by AWA ENNIS on 09/16/2020 8:58 PM . Jonathan Broussard MD CT ORDERABLES * FL RICO SURGERY (09/16/2020 11:40 AM CDT) Narrative [facility] - 09/16/2020 11:40 AM CDT Fluoroscopy was used for this exam in the OR. Please see the Operative report. Jonathan Broussard MD FLUOROSCOPY GLYNN JAIME Performing Organization Address [facility]/[place] Co de Phone Number [facility] * FL OARM SURGERY (09/16/2020 10:15 AM CDT) Narrative [facility] - 09/16/2020 10:22 AM CDT Fluoroscopy was used for this exam in the OR. Please see the Operative report. Jonathan Broussard MD FLUOROSCOPY ORDMaureen JAIME Performing Organization Address [facility]/ZIP Co de Phone Number [facility] * ETT LINE PERFORMABLE (09/16/2020 8:05 AM CDT) Narrative Leela Sandoval APRN-ENVIRONMENTAL SCIENTIST - 09/16/2020 8:05 AM CDT Leela Sandoval APRN-KEVIN 09/16/2020 8:06 AM Endotracheal Tube Placement: Patient Location: OR. Procedure: intubation (12644). Procedure Section: Sedation: under general anesthesia. Indications [...] No. Staff Section Anesthesia Provider: Leela Sandoval, DISTRIBUTOR OF DIRECTORIES-ENVIRONMENTAL SCIENTIST, Performed the procedure Thomas Douglas MD GENERAL ANESTHESIA O RDERABLES * TYPE + SCREEN PANEL (09/16/2020 6:23 AM CDT) Only the most recent of2 resultswithin the time period is included. Antibody Screen NEG 09/16/2020 7:39 AM CDT [facility] ABO Rh AB POS 09/16/2020 7:39 AM CDT [facility] Blood Bank BLOOD SPECIMEN / Unknown Venipuncture / Unknown 09/16/2020 6:23 AM CDT 09/16/2020 6:41 AM CDT Jonathan Broussard MD LAB - BLOOD BANK ORDERABLES Performing Organization Address [facility]/State/ZIP Co de Phone Number [facility] [address] [place] [address], [facility] [phone] * LAB RESULTS ORDER (09/15/2020) Narrative 09/15/2020 Ordered by an unspecified provider. Scanned Document LAB - THERAPEUTIC DR UG MONITORING ORDERABLES * PTT [facility] (09/12/2020 12:32 PM CDT) APTT 27.0 23.0 - 38.4 Seconds 09/12/2020 1:43 PM CDT [facility] Comment:Suggested therapeuti c range for full dose I.V. unfractionated heparin therapy for venous thromboembolism is 71 to 109 seconds. Blood BLOOD SPECIMEN / Unknown Lab Venipuncture / Unknown 09/12/2020 12:32 PM CDT 09/12/2020 1:34 PM CDT Jonathan Broussard MD LAB - COAGULATIO N ORDERABLES Performing Organization Address [facility] de Phone Number [address] [address], [facility] [phone] * PT-INR [facility] (09/12/2020 12:32 PM CDT) Pathologist [facility] PT 12.5 12.1 - 14.8 Seconds 09/12/2020 2:05 PM CDT [facility] INR 1.0 See Comment 09/12/2020 2:05 PM CDT [facility] Comment:The suggested therap eutic range for standard coumadin (warfarin) therapy is an INR of 2.0-3.0. For high-risk patients (Mechanical Mitral Valve Prosthesis, etc.), the suggested prophylactic therapeutic range is an INR of 2.5-3.5. Blood BLOOD SPECIMEN / Unknown Lab Venipuncture / Unknown 09/12/2020 12:32 PM CDT 09/12/2020 1:34 PM CDT Jonathan Broussard MD LAB - COAGULATIO N ORDERABLES Performing Organization Address [facility]/[place] Co de Phone Number [address] [address], [facility] [phone] * NICOTINE URINE (09/12/2020 12:32 PM CDT) Cotinine Screen Urine Negative Cutoff 100 ng/mL 09/13/2020 11:17 PM CDT [employer] ([facility]) Comment: INTERPRETIVE DATA: Cotinine Screen, Urine Cotinine is a metabolite of nicotine and may be detected up to seven days after nicotine exposure. The cut-off is set at 100 ng/mL to detect active exposure (smoking). This assay will not distinguish between tobacco use and nicotine replacement therapy. Performed By: [employer] [address] [place] [address] Turn Out: Sophie Siddiqui MD Urine URINE / Unknown Collection / Unknown 09/12/2020 12:32 PM CDT 09/12/2020 1:30 PM CDT Chloé Jordan DISTRIBUTOR OF DIRECTORIES-CHAIN MAKER MACHINE LAB - URINE CHEMISTR Y ORDERABLES [facility] ([facility]) [address] * COMPREHENSIVE METABOLIC PANEL (09/12/2020 12:32 PM CDT) BUN 21 7 - 26 mg/dL 09/12/2020 2:08 PM [facility] Creatinine 0.9 0.6 - 1.2 mg/dL 09/12/2020 2:08 PM [facility] Sodium 143 136 - 145 mmol/L 09/12/2020 2:08 PM [facility] Potassium 4.5 3.5 - 4.5 mmol/L 09/12/2020 2:08 PM [facility] Chloride 104 98 - 107 mmol/L 09/12/2020 2:08 PM [facility] CO2 27 22 - 29 mmol/L 09/12/2020 2:08 PM [facility] Glucose 76 70 - 115 mg/dL 09/12/2020 2:08 PM [facility] Calcium 9.5 8.4 - 10.2 mg/dL 09/12/2020 2:08 PM [facility] Protein Total 7.5 6.0 - 8.3 g/dL 09/12/2020 2:08 PM [facility] Albumin 4.2 3.4 - 5.0 g/dL 09/12/2020 2:08 PM [facility] Bilirubin Total 1.0 0.2 - 1.2 mg/dL 09/12/2020 2:08 PM [facility] Alkaline Phosphatase 74 40 - 150 Units/L 09/12/2020 2:08 PM [facility] ALT 22 0 - 55 Units/L 09/12/2020 2:08 PM CDT [facility] AST 18 5 - 34 Units/L 09/12/2020 2:[address] [facility] Anion Gap 17 8 - 18 09/12/2020 2:[address] [facility] BUN/Creatinine Ratio 23 7 - 23 09/12/2020 2:[address] [facility] Osmolality Calculated 298 270 - 300 mOsm/kg 09/12/2020 2:[address] [facility] Albumin/Globulin Ratio 1.3 1.1 - 2.3 09/12/2020 2:[address] [facility] eGFR >60 >60 mL/min/1.7 3 m2 09/12/2020 2:[address] [facility] Blood BLOOD SPECIMEN / Unknown Lab Venipuncture / Unknown 09/12/2020 12:32 PM CDT 09/12/2020 1:36 PM CDT Jonathan Broussard MD LAB - CHEMISTRY ORDERABLES Performing Organization Address City/State/[place] Co de Phone Number [facility] [address] [place] [address], [facility] [phone] * XR CHEST 2VW (09/12/2020 12:21 PM CDT) Anatomical Region Laterality Modality Chest Radiographic Rosemarie ging 09/12/2020 1:18 PM CDT Impressions 09/14/2020 2:53 PM CDT FINDINGS/IMPRESSION: There is no focal consolidation, pleural effusion, or pneumothorax. The cardiomediastinal silhouette is normal. The visible bony thorax is intact. Dictated by Lisa Molina MD (director of radiology). I, Dr. DIANA PANTOJA M.D. have personally [...] thorax isintact. Dictated by Lisa Molina MD (director of radiology). I, Dr. DIANA PANTOJA M.D. have personally reviewed and interpreted this examination/study. This report was electronically signed by DIANA PANTOJA M.D. on 09/14/2020 2:53 PM . Jonathan Broussard MD DIAGNOSTIC IMAGI NG ORDERABLES * SARS-COV-2 (COVID-19) IN HOUSE (09/12/2020 11:20 AM CDT) COVID-19 PCR Not detected Not detected 09/12/2020 8:10 PM CDT [facility] Microbiology SPECIMEN FROM NASOPHARYNGEAL STRUCTURE / Unknown Collection / Unknown 09/12/2020 11:20 AM CDT 09/12/2020 1:34 PM CDT Narrative [facility] - 09/12/2020 8:10 PM CDT This nucleic acid amplification assay performance was validated by [facility]. This test has been authorized [...] Broussard MD LAB - MICROBIOLO GY ORDERABLES [facility] [address] [place], [place] [address], [facility] [phone] * EKG 12-LEAD (09/12/2020 11:14 AM CDT) Ventricular Rate 69 BPM [facility] Atrial Rate 69 BPM [facility] P-R Interval 146 ms [facility] QRS Duration ms 74 ms [facility] Q-T Interval ms 360 ms [facility] QTC Calculation (Bezet) 385 ms [facility] Calculated P Dunlap 58 degrees [facility] Calculated R [place] 47 degrees [facility] Calculated T Dunlap 60 degrees [facility] Interpretation EKG NORMAL SINUS RHYTHM NORMAL ECG NO PREVIOUS ECGS AVAILABLE Confirmed by fellow Lizbeth George ([id number]) on 09/12/2020 1:45:26 PM Confirmed by Sebastian Azar ([id number]) on 09/13/2020 5:24:20 PM [facility] 09/12/2020 11:1 4 AM CDT 09/13/2020 5:24 PM CDT Jonathan Borussard MD ECG ORDERABLES Performing Organization Address [facility]/[place] Co de Phone Number [facility] * XR LUMBAR SPINE 4VW OR MORE (04/28/2018 10:26 AM ELECTRICIAN SUPERVISOR) Anatomical Region Laterality Modality Spine Radiographic Rosemarie ging 04/28/2018 10:2 7 AM ELECTRICIAN SUPERVISOR Impressions 04/29/2018 6:26 AM ELECTRICIAN SUPERVISOR IMPRESSION: L5 pars defect with grade 1 anterolisthesis of L5 on S1. Degenerative change. Report dictated by Brijesh Huff M.D. I, Dr. NICK DELGADO have personally reviewed and interpreted this examination/study. This report was electronically signed by NICK DELGADO on 04/29/2018 6:26 AM . Narrative 04/29/2018 6:26 AM ELECTRICIAN SUPERVISOR EXAMINATION: XR LUMBAR SPINE 4VW OR MORE [...] MD DIAGNOSTIC IMAGI NG ORDERABLES Care Teams Wire Bender Hand Relationship Specialty Start Date End Date Mesfin Cortes MD [facility] [address] [place] [address] PCP - General 06/08/22
--- OUTSIDE RECORDS SUMMARY | 2024-07-30 12:38 | XMS_ITS | Clinical Summary ---
Author Organization [facility] [employer] Address [address] [place] [address] Care Team Providers Care System Sales Consultant Name Role Phone Mesfin Cortes MD Primary Care Provider [phone] Source Comments [facility] [employer],non-owned Affiliates and Associated Physician Practices is amultiple site organization consisting of ambulatory clinics and hospital sitesin [place], [place], [place] and [place]. This disclosure is being madepursuant to the Care Everywhere program and may not contain all information available regarding this patient. 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 Oxygen Saturation 93% 10/07/2023 8:3 3 AM [...] this topic Medical Devices Implanted Type Area Leather Polisher Device Identifier Shelf Expiration Date Model / Serial / Lot Screw Set Ti Spnl Brk Off Cd Hzn Nonster - Sn/A Implanted:Qty: 4 on 09/16/2020 by Jonathan Broussard MD at [facility] N/A: Spine Lumbar Medtronic Sofamor Danek [employer] 09/16/2030 [id number] / N/A / N/A Screw 7.5mm 35mm Ma Spne Solera Cd Hzn - Sn/A Implanted:Qty: 2 on 09/16/2020 by Jonathan Broussard MD at [facility] N/A: Spine Lumbar Medtronic Sofamor [employer] 09/16/2030 [id number] / N/A / N/A Screw 7.5mm 40mm Ma Spne Solera Cd Hzn - Sn/A Implanted:Qty: 2 on 09/16/2020 by Jonathan Broussard MD at [facility] N/A: Spine Lumbar Medtronic Sofamor [employer] 09/16/2030 [id number] / N/A / N/A Agent Hmst Evithrom Geltn Top Kt Ndlfr - Sn/A Implanted:Qty: 2 on 09/16/2020 by Jonathan Broussard MD at [facility] N/A: Spine Lumbar Ethicon Inc 06/29/2021 [id number] / N/A / [id number] Graft Bone Grftn Dbm 5x2.5cm - [id number] Implanted:Qty: 1 on 09/16/2020 by Jonathan Broussard MD at [facility] N/A: Spine Lumbar Osteotech Inc 07/06/2023 [id number] DUPLICATE / [id number] / N/A Spcr 18 Deg 14x22 - Sn/A Implanted:Qty: 1 on 09/16/2020 by Jonathan Broussard MD at [facility] N/A: Spine Lumbar Medtronic Sofamor [employer] 02/28/2026 [id number] / N/A / [id number] Spcr 18 Deg 14x22 - Sn/A Implanted:Qty: 1 on 09/16/2020 by Jonathan Broussard MD at [facility] N/A: Spine Lumbar Medtronic Sofamor [employer] 11/12/2026 [id number] / N/A / [id number] Agus Spnl 50mm 5.5mm Cd Hzn Crv [place] - Sn/A Implanted:Qty: 2 on 09/16/2020 by Jonathan Broussard MD at [facility] N/A: Spine Lumbar Medtronic Inc 09/16/2030 [id number] / N/A / N/A Procedures Procedure Name [...] 7 - 26 mg/dL 09/19/2020 4:04 AM [facility] Creatinine 1.0 0.6 - 1.2 mg/dL 09/19/2020 4:04 AM [facility] Sodium 141 136 - 145 mmol/L 09/19/2020 4:04 AM [facility] Potassium 3.8 3.5 - 4.5 mmol/L 09/19/2020 4:04 AM [facility] Chloride 101 98 - 107 mmol/L 09/19/2020 4:04 AM [facility] CO2 27 22 - 29 mmol/L 09/19/2020 4:04 AM [facility] Glucose 97 70 - 115 mg/dL 09/19/2020 4:04 AM [facility] Calcium 9.2 8.4 - 10.2 mg/dL 09/19/2020 4:04 AM [facility] Anion Gap 17 8 - 18 09/19/2020 4:04 AM [facility] BUN/Creatinine Ratio 15 7 - 23 09/19/2020 4:04 AM [facility] Osmolality Calculated 293 270 - 300 mOsm/kg 09/19/2020 4:04 AM [facility] eGFR >60 >60 mL/min/1.7 3 m2 09/19/2020 4:04 AM [facility] Blood BLOOD SPECIMEN / Unknown Lab Venipuncture / Unknown 09/19/2020 1:44 AM CDT 09/19/2020 3:30 AM T Jonathan Broussard MD LAB - CHEMISTRY ORDERABLES [facility] [address] [place] [address], [facility] [phone] from Last 3 Months or Most Recently Relevant to Health Maintenance Advance Directives * Full Code (Latest Code Status on File) Date Activated Date Inactivated Comments 09/16/2020 2:19 PM 09/19/2020 11:55 AM Care Teams System Sales Consultant Relationship Specialty Start Date End Date Mesfin Cortes MD [address] [place] [id number] PCP - General 06/08/22
[2024-07-30] MEDS: LACTATED RINGERS 1,000 ML 999 ML IV CONT (12:55)
[2024-07-30] MEDS: MORPHINE SULFATE (*CRX) 4 MG/ML INJ IV PUSH (12:56)
[2024-07-30 14:24] LABS: Add Urine Microscopic? YES; Appearance Urine Clear (Clear); Bacteria Urine None Seen /hpf; Bilirubin Urine Negative (Negative); Blood Urine Negative (Negative); Color Urine Yellow (Yellow); Glucose Urine UA Negative (Negative); Ketones Urine Negative (Negative); Leukocyte Esterase Ur Negative LEU/UL (Negative); Nitrate Urine Negative (Negative); Non Pathogenic Casts 0-2; Protein Urine Trace mg/dL (Negative); RBC Urine 0-2 /hpf (0-2); Specific Grav Ur 1.045 (1.001-1.035); Squamous Epithelial Cell Urine None Seen /hpf (Few); WBC Urine 0-5 /hpf (0-3)
[2024-07-30] MEDS: KETOROLAC 15 MG/ML VIAL (*BKC) IV PUSH (14:37)
== END 2024-07-30 15:14 | disposition home or self-care (01) ==
PROVIDERS: Emergency Medicine; Emergency Provider Student in an Organized Health Care Education/Training Program; PCP Emergency Medicine
DX: K57.30 Diverticulosis of large intestine without perforation or abscess without bleeding (principal); K80.20 Calculus of gallbladder without cholecystitis without obstruction; I10 Essential (primary) hypertension; F17.210 Nicotine dependence, cigarettes, uncomplicated; Z98.1 Arthrodesis status; K44.9 Diaphragmatic hernia without obstruction or gangrene; K40.90 Unilateral inguinal hernia, without obstruction or gangrene, not specified as recurrent
CPT/HCPCS: 36415; 74177; 80053; 81001; 83690; 85025; 96361; 96374; 96375; 99284; J1885; J2270; J7120; Q9967

== ENCOUNTER 2025-02-26 07:23 | Outpatient (CLI) | payer MEDICARE, MEDICAID, SELFPAY ==
--- NOTE | ~2025-02-26 | DEXA_ITS ---
Bone Density Report Name: SUN CHANG Age: 59 Sex: Male Ethnicity: White Date of : 1965 Indication: osteoporosis; height loss; prior fracture; asthma or emphysema; Referring Provider: HIRAM ORTIZ Study: Bone densitometry was performed. Exam Date: February 26, 2025 Accession number: [id number] Bone Density: Region BMD T-score Z-score Classification AP Spine(L1, L2, L3) 0.869 -1.8 -1.3 Osteopenia Femoral Neck (Left) 0.573 -2.6 -1.7 Osteoporosis Total Hip (Left) 0.789 -1.6 -1.2 Osteopenia Femoral Neck (Right) 0.540 -2.9 -2.0 Osteoporosis Total Hip (Right) 0.756 -1.8 -1.4 Osteopenia Total Hip Mean 0.773 -1.7 -1.3 Osteopenia World Health Organization criteria for BMD impression classify patients as: Normal (T-score at or above -1.0), Osteopenia (T-score between -1.0 and -2.5), or Osteoporosis (T-score at or below -2.5). 10-year Fracture Risk: FRAX not reported because: Some T-score for Spine Total or Hip Total or Femoral Neck at or below -2.5 Previous Exams: Region Exam Age BMD T-score BMD Change BMD Change Date g/cm2 vs Baseline vs Previous AP Spine (L1-L3) 02/26/2025 59 0.869 -1.8 0.072 (9.1%)* 0.072 (9.1%)* 06/06/2022 57 0.797 -2.5 Total Hip(Left) 02/26/2025 59 0.789 -1.6 0.027 (3.5%) 0.027 (3.5%) 06/06/2022 57 0.763 -1.8 Total Hip(Right) 02/26/2025 59 0.756 -1.8 0.034 (4.6%)* 0.034 (4.6%)* 06/06/2022 57 0.723 -2.1 *Denotes significance at 95% confidence level, LSC for AP Spine = 0.022 g/cm2, LSC for Total Hip = 0.027 g/cm2 Clinical Information Provided by Patient: Has had a low trauma fracture Smokes Has 3 or more alcoholic drinks per day Has used the following medications: Fosamax (i.e. alendronate), Vitamin D Has the following medical conditions: Asthma or Emphysema Patient maximum height was 72 No regular weight bearing exercise Drinks caffeinated beverages Impression: The patient has established osteoporosis, based on the Right Femoral Neck T-score and the existence of a prior fracture. The patient has risk factors, including: smoking, excessive alcohol use, previous fracture. No significant bone loss was observed. Discussion: HIGH RISK OF FRACTURE. BONE DENSITY IS UNDESIRABLY LOW AT ONE OR MORE SKELETAL SITES, CONSISTENT WITH OSTEOPOROSIS. This patient's lowest T-score, in a patient who has previously fractured, meets the World Health Organization's (WHO) criteria for severe osteoporosis. In untreated patients, the risk of osteoporotic fracture increases approximately two-fold for each 1.0 SD decrease in T-score. Low bone density is not the only risk factor for fracture; also consider factors such as patient's age, frailty or poor health, risk of falling, risk of injury, previous osteoporotic fracture, family history of osteoporosis, cigarette smoking, low body weight, etc. Not everyone with low bone mineral density has osteoporosis; osteomalacia and other metabolic bone disorders should also be considered. Patients who have osteoporosis should be evaluated for specific diseases and conditions (secondary causes) that may cause or contribute to bone loss. The National Osteoporosis Foundation (NOF) recommends pharmacologic intervention for men with BMD at this level (a T-score of -2.5 or below). The patient should follow a healthful lifestyle (good nutrition with adequate calcium and vitamin D, and appropriate weight-bearing exercise). Follow-Up: Consider repeating this study in 2 years to reassess this patient's status, or sooner if there is some new clinical indication. Reported by: AMADOU on 02/26/2025 8:04:00 AM. Reviewed, dictated and finalized at location A.
== END 2025-02-26 07:24 | disposition home or self-care (01) ==
LOC: ANHFOHIMG 07:25
PROVIDERS: PCP Emergency Medicine; Visit Provider Emergency Medicine
DX: M81.0 Age-related osteoporosis without current pathological fracture (principal); M85.88 Other specified disorders of bone density and structure, other site; M85.852 Other specified disorders of bone density and structure, left thigh; M85.851 Other specified disorders of bone density and structure, right thigh
CPT/HCPCS: 77080

== ENCOUNTER 2025-04-10 07:27 | Outpatient (CLI) | payer MEDICARE, MEDICAID, SELFPAY ==
--- NOTE | ~2025-04-10 | US_ITS ---
EXAMINATION: US retroperitoneal duplex ltd COMPARISON: No comparisons available. HISTORY: R74.01 - Elevation of levels of liver transaminase levels FINDINGS: LIVER: No liver lesions.No nodularity of the contours. . Mild increased echogenicity of the liver.The liver measures 19.7 cm. GALLBLADDER/BILIARY: Minimal sludge, wall thickening or pericholecystic fluid. CBD 4.3 mm. Paterson sign negative. PANCREAS: Pancreas limited by bowel gas. RIGHT KIDNEY: Right kidney 10.9 x 5.4 x 5.2 cm, normal. FREE FLUID: None. Impression: 1. Minimal hepatic steatosis. Small amount of gallbladder sludge. Reviewed, dictated and finalized at location P. Impression: 1. Minimal hepatic steatosis. Small amount of gallbladder sludge.
== END 2025-04-10 07:28 | disposition home or self-care (01) ==
PROVIDERS: PCP Emergency Medicine; Visit Provider Internal Medicine Gastroenterology
DX: R74.01 Elevation of levels of liver transaminase levels (principal)
CPT/HCPCS: 93976

== ENCOUNTER 2025-04-13 10:00 | Outpatient (CLI) | payer MEDICARE, MEDICAID, SELFPAY ==
[2025-04-13 11:22] LABS: Hematocrit 52.7 % (42.0-52.0); Hemoglobin 17.7 g/dL (14.0-18.0); Immature Granulocyte Percent A 0.6 % (0-0.5); Lymphocytes Absolute Auto 2.18 K/mm3 (0.9-3.2); Mean Corpuscular HGB Conc 33.6 g/dl (32-36); Mean Corpuscular Hemoglobin 35.7 pg (26-34); Mean Corpuscular Volume 106.3 fl (80-100); Nucleated Red Blood Cells Absolute Auto 0.000 K/mm3 (0.0-0.012); Nucleated Red Blood Cells Perc 0.0 % (0.0-0.2); Platelet Count Result 274 k/mm3 (150-375); Red Blood Count 4.96 M/mm3 (4.6-6.20); White Blood Count 9.8 K/mm3 (4.5-10.0)
[2025-04-13 11:39] LABS: Alanine Aminotransferase 60 U/L (6-50); Albumin Level 4.1 g/dL (3.5-5.1); Alkaline Phosphatase 101 U/L (38-126); Anion Gap 6 mmol/L (4-12); Aspartate Amino Transferase 70 U/L (17-59); Bilirubin,Total 1.7 mg/dL (0.2-1.3); Blood Urea Nitrogen 8 mg/dL (9-20); Calcium 9.1 mg/dL (8.4-10.2); Carbon Dioxide 33 mmol/L (22-30); Chloride 100 mmol/L (98-107); Cholesterol 259 mg/dL (0-200); Estimated Glomerular Filt Rate > 60; Glucose 100 mg/dL (65-110); HDL Direct 37 mg/dL; Potassium 4.0 mmol/L (3.4-5.0); Sodium 139 mmol/L (137-145); Total Protein 7.3 g/dL (6.3-8.2); Triglycerides 280 mg/dL (<150)
--- OUTSIDE RECORDS SUMMARY | 2025-04-13 12:00 | XMS_ITS | Clinical Summary ---
Author Organization [facility] Address [facility] [place] [address] Care Team Providers Care Tree Wrapper Name Role Phone Mesfin Cortes MD Primary Care Provider [phone] Allergies Active Allergy Reactions Criticality Noted Date [...] on file Legal Sex Male 8:38 AM OIL INSPECTOR Gender Identity Not on file Sexual Orientation Not on file Last Filed Vital Signs Vital Sign Reading Time Taken Comments Blood Pressure 154/90 08/06/2023 11:00 AM OIL INSPECTOR Pulse 66 08/06/2023 10:30 AM OIL INSPECTOR Temperature 36.7 C (98.1 F) 08/06/2023 11:00 AM OIL INSPECTOR Respiratory Rate 16 08/06/2023 11:0 0 AM OIL INSPECTOR Oxygen Saturation 97% 08/06/2023 11: 00 AM OIL INSPECTOR Inhaled Oxygen Concentration - - Weight 88.8 kg (195 lb 12.3 oz) 08/06/2023 8:21 AM OIL INSPECTOR Height 182.9 cm (6') 08/06/2023 8:21 AM OIL INSPECTOR Body Mass Index 26.55 08/06/2023 8:21 AM OIL INSPECTOR Plan of Treatment Health Maintenance Due Date Last Done Comments Colorectal Cancer Screening Colonoscopy (10 Years) 1965 Annual Physical 1970 Hepatitis C 1985 DTaP, Tdap and Td Vaccines ( 1 - Tdap) 1986 Hepatitis B Vaccines (1 of 3 - 19+ 3-dose series) 1986 Pneumococcal Vaccine: 50+ Years (1 of 2 - PCV) 1986 Zoster Vaccines (1 of 2) 2017 COVID-19 Vaccine (3 - 2024-2 6 season) 2025 01/27/2021, 12/30/2020 Influenza Adult (#1) 2025 Hepatitis A Vaccines Aged Out No long er eligible based on patient's age to complete this topic Meningococcal B Vaccine Aged Out No l onger eligible based on patient's age to complete this topic Meningococcal Vaccine Aged Out No erik janae eligible based on patient's age to complete this topic RSV Immunizations Under 20 Months Aged Out No longer eligible b ased on patient's age to complete this topic Insurance MEDICARE MEDICAID Care Teams Tree Wrapper Relationship Specialty Start Date End Date Mesfin Cortes MD [address] [place] [id number] PCP - General FAMILY PRACTICE 08/06/23
--- OUTSIDE RECORDS SUMMARY | 2025-04-13 12:00 | XMS_ITS | Clinical Summary ---
Author Organization [facility] Address [address] [place] [address] Phone Care Team Providers Care Industrial Truck Operator Name Role Phone Mesfin Cortes MD Primary Care Provider [phone] Philippe Sunshine MD Unavailable Allergies Active Allergy Reactions Criticality Noted Date Comments Ampicillin Nausea 09/17/2018 Penicillins Nausea 09/04/2018 Medications albuterol 108 (90 Base) MCG/ACT Aerosol Solution INHALE 2 PUFFS BY MOUTH EVERY 6 HOURS NEEDED. 10/23/2023 Active alendronate (FOSAMAX) 35 MG Tablet 08/26/2024 Active traMADol HCl 25 MG Tablet Take 1 Tablet by mouth every 6 hours as needed. 08/07/2024 Active ondansetron (ZOFRAN-ODT) 4 MG TABLET DISPERSIBLE Take 4 mg by mouth every 8 hours as needed. 07/30/2024 Active ergocalciferol (VITAMIN D) 08363 UNIT Capsule take 1 capsule by mouth every week 11/18/2024 Active lisinopril (PRINIVIL, ZESTRIL) 40 MG Tablet Take 40 mg by mouth daily. 10/22/2024 Active Active Problems Problem Noted Date Diagnosed Date HTN (hypertension) 09/08/2024 Elevated blood pressure reading 06/09/2024 Depression 12/30/2018 Cigarette nicotine dependence without complicati on 12/30/2018 Sacroiliac joint dysfunction of both sides 10/02 Elevated blood pressure read ing in office without diagnosis of hypertension 10/02/2018 Lumbar radiculopathy 09/04/2018 Pars defect of lumbar spine 09/04/2018 Facet arthropathy, lumbosacral 09/04/2018 Family History Relation Name Status Comments Mother Alive Social History Tobacco Use Types Packs/Day Years Used Date Smoking Tobacco: Every Day Cigarettes Smokeless Tobacco: Never Tobacco Cessation:Ready to Q uit: No; Counseling Given: Yes Sex and Gender Information Value Date Recorded Sex Assigned at Not on file Legal Sex Male 1:49 PM CDT Gender Identity Not on file Sexual Orientation Not on file Last Filed Vital Signs Vital Sign Reading Time Taken Comments Blood Pressure 160/98 12/08/2024 8:26 AM CDT taken in right and left arm Pulse 81 12/08/2024 8:26 AM CDT Temperature 36.9 C (98.4 F) 12/08/2024 8:26 AM CDT Respiratory Rate 20 12/08/2024 8:26 AM CDT Oxygen Saturation 95% 12/08/2024 8:2 6 AM CDT Inhaled Oxygen Concentration - - Weight 91.7 kg (202 lb 1.6 oz) 12/08/2024 8:26 AM CDT Height 177.8 cm (5' 10) 12/08/2024 8:2 6 AM CDT Body Mass Index 29 12/08/2024 8:26 AM CDT Plan of Treatment Health Maintenance Due Date Last Done Comments Hepatitis C Virus (HCV) Screening 1965 TdaP Immunization 1965 Hepatitis B Immunization (1 of 3 - 19+ 3-dose series) 1986 Pneumococcal Immunization (5 0+ years) (1 of 2 - PCV) 1986 Cologuard 2012 Colonoscopy 2012 Colorectal Cancer Screening 2012 Immunochemical Fecal Occult Blood 2012 Zoster Immunization (1 of 2) 2017 Medicare Initial AWV [id number] 09/22/2022 Influenza Immunization (#1) 2025 SARS-COV-2 Immunization (3 - 2024- season) 2025 01/27/2021, 12/30/2020 Respiratory Syncytial Virus (RSV) Immunization (Adult) (1 - 1-dose 75+ series) 2042 PSA Discussion Completed 09/08/2024 Human Papillomavirus (HPV) Immunization Aged Out No longer eligible b ased on patient's age to complete this topic Meningococcal Immunization (ACWY) Aged Out No longer eligible b ased on patient's age to complete this topic Rotavirus Immunization Aged Out No lo nger eligible based on patient's age to complete this topic Procedures Procedure Name Priority Date/Time Associated Diagnosis Comments PSA DIAGNOSTIC,TOTAL Routine 09/08/2024 8:27 AM CDT from Last 3 Months or Most Recently Relevant to Health Maintenance Results * PSA DIAGNOSTIC,TOTAL (09/08/2024 8:27 AM CDT) PSA 0.31 0.00 - 4.00 ng/mL CANCER BOOKKEEPING MACHINE OPERATOR OF [facility] Comment: Brandy Paramagnetic Particle Chemiluminescent Immunoassay Method. Standardized against the WHO standard. 09/08/2024 8:27 AM CDT Mesfin Cortes MD CHEMISTRY ORDERABLES Final Resul t CANCER BOOKKEEPING MACHINE OPERATOR [facility] [place] [address], from Last 3 Months or Most Recently Relevant to Health Maintenance Insurance MEDICAID [facility] MEDICARE MEDICAID [place] Care Teams Industrial Truck Operator Relationship Specialty Start Date End Date Mesfin Cortes MD [address] [place] [id number] PCP - General Family Medicine 08/14/23 Philippe Sunshine MD [address] [place] [id number] Consulting Physician Oncology 02/21/24
[2025-04-13 12:16] LABS: Thyroid Stimulating Hormone 1.200 uIU/mL (0.465-4.680)
[2025-04-13 12:51] LABS: Vitamin B12 274.0 pg/mL (239-931)
[2025-04-13 23:06] LABS: Iron 311 ug/dL (49-181)
[2025-04-13 23:16] LABS: Percent Iron Saturation 75 % (20-50)
[2025-04-13 23:24] LABS: Free T4 Free Thyroxine 1.24 ng/dL (0.78-2.19)
[2025-04-13 23:43] LABS: Ferritin 156.00 ng/mL (11.1-264)
== END 2025-04-13 10:01 | disposition home or self-care (01) ==
PROVIDERS: PCP Emergency Medicine; Visit Provider Internal Medicine Gastroenterology
DX: R74.01 Elevation of levels of liver transaminase levels (principal); K70.0 Alcoholic fatty liver; R74.8 Abnormal levels of other serum enzymes; R94.5 Abnormal results of liver function studies; E78.5 Hyperlipidemia, unspecified; E55.9 Vitamin D deficiency, unspecified; J44.9 Chronic obstructive pulmonary disease, unspecified
CPT/HCPCS: 36415; 80053; 80061; 82248; 82306; 82607; 82728; 82746; 83540; 83550; 84439; 84443; 85025

== ENCOUNTER 2025-04-19 11:14 | Outpatient (CLI) | payer MEDICARE, MEDICAID, SELFPAY ==
--- OUTSIDE RECORDS SUMMARY | 2025-04-19 12:51 | XMS_ITS | Clinical Summary ---
Author Organization [facility] [employer] Address [address] [place] [address] Care Team Providers Care Chainer Name Role Phone Mesfin Cortes MD Primary Care Provider [phone] Source Comments [facility] [employer],non-owned Affiliates and Associated Physician Practices is amultiple site organization consisting of ambulatory clinics and hospital sitesin [place], [place], [place] and [place]. This disclosure is being madepursuant to the Care Everywhere program and may not contain all information available regarding this patient. Last updated 18.[facility] [employer] Allergies Active Allergy Reactions Criticality Noted Date Comments Ampicillin GI Discomfort Penicillins GI Discomfort Medications * Be aware that medications may not be up to date on this document. Alwaysverify current medications with the patient. atorvastatin (LIPITOR) 20 MG tablet Take 1 (one) tablet by mouth once daily 07/18/2020 Active vitamin D, ergocalciferol, (Drisdol) 1.25 MG (14062 UT) capsule Take 1 (one) capsule by mouth every 7 days 06/13/2022 Active lisinopril (Prinivil; Zestril) 20 MG tablet 06/18/2022 Active alendronate (Fosamax) 35 MG tablet Take 1 [...] (one) tablet by mouth once daily Active [place]-3 Fatty Acids (fish oil) 1000 MG capsule [...] at Not on file Legal Sex Male 9:11 AM CDT Gender Identity Not on file Sexual Orientation Not on file Last Filed Vital Signs Vital Sign Reading Time Taken Comments Blood Pressure 152/96 10/07/2023 8:33 AM CDT Patient is having pain Pulse 78 10/07/2023 8:33 AM CDT Temperature 37 C (98.6 F) 10/07/2023 8:33 AM CDT Respiratory Rate 18 08/13/2022 8:59 AM PROFESSOR OF SURGERY Oxygen Saturation 93% 10/07/2023 8:3 3 AM CDT Inhaled Oxygen Concentration - - Weight 87.5 kg (193 lb) 10/07/2023 8:33 AM CDT Height 177.8 cm (5' 10) 10/07/2023 8:3 3 AM CDT Body Mass [...] 50+ (1 of 2 - PCV) 1986 ZOSTER VACCINE (1 of 2) 2017 SCREENING FOR DIABETES 09/20/2023 , 09/18/2020, 09/17/2020, Additional history exists DEPRESSION SCREENING 06/24/2024 COVID-19 VACCINE ( season) 2025 INFLUENZA VACCINE (#1) 2025 HIB VACCINE Aged Out No longer eligi ble based on patient's age to complete this topic HPV VACCINE Aged Out No longer eligi ble based on patient's age to complete this topic MENINGOCOCCAL (Group B) VACCINE SHARED DECISION-MAKING Aged Out No longer eligible based on patient's age to complete this topic MENINGOCOCCAL GROUPS A/C/Y/W VACCINE Aged Out No longer eligible based on patient's age to complete this topic Medical Devices Implanted Type Area Continuous Improvement Director Device Identifier Shelf Expiration Date Model / Serial / Lot Screw Set Ti Spnl Brk Off Cd Hzn Nonster - Sn/A Implanted:Qty: 4 on 09/16/2020 by Jonathan Broussard MD at [facility] N/A: Spine Lumbar Medtronic Sofamor [employer] 09/16/2030 [id number] / N/A / N/A Screw 7.5mm 35mm Ma Spne Solera Cd Hzn - Sn/A Implanted:Qty: 2 on 09/16/2020 by Jonathan Broussard MD at [facility] N/A: Spine Lumbar Medtronic Sofamor [employer] 09/16/2030 [id number] / N/A / N/A Screw 7.5mm 40mm Ma Spne Solera Cd Hzn - Sn/A Implanted:Qty: 2 on 09/16/2020 by Jonathan Broussard MD at [facility] N/A: Spine Lumbar Medtronic Sof[employer]or [employer] 09/16/2030 [id number] / N/A / N/A Agent Hmst Evithrom Geltn Top Kt Ndlfr - Sn/A Implanted:Qty: 2 on 09/16/2020 by Jonathan Broussard MD at [facility] N/A: Spine Lumbar [employer] 06/29/2021 [id number] / N/A / [id number] Graft Bone Grftn Dbm 5x2.5cm - [id number] Implanted:Qty: 1 on 09/16/2020 by Jonathan Broussard MD at [facility] N/A: Spine Lumbar [employer] 07/06/2023 [id number] DUPLICATE / [id number] / N/A Spcr 18 Deg 14x22 - Sn/A Implanted:Qty: 1 on 09/16/2020 by Jonathan Broussard MD at [facility] N/A: Spine Lumbar Medtronic [employer] 02/28/2026 [id number] / N/A / [id number] Spcr 18 Deg 14x22 - Sn/A Implanted:Qty: 1 on 09/16/2020 by Jonathan Broussard MD at [facility] N/A: Spine Lumbar Medtronic [employer] 11/12/2026 [id number] / N/A / [id number] Agus Spnl 50mm 5.5mm Cd Hzn Crv Cocrmo - Sn/A Implanted:Qty: 2 on 09/16/2020 by Jonathan Broussard MD at [facility] N/A: Spine Lumbar Medtronic Inc 09/16/2030 [id number] / N/A / N/A Procedures Procedure Name Priority Date/Time Associated Diagnosis Comments BASIC METABOLIC PANEL (CALCIUM TOTAL) Routine 09/19/2020 1:44 AM CDT Lumbar radiculopathy, right from Last 3 Months or Most Recently Relevant to Health Maintenance Results * BASIC METABOLIC PANEL (CALCIUM TOTAL) (09/19/2020 1:44 AM CDT) [facility] BUN 15 7 - 26 mg/dL 09/19/2020 4:04 AM CDT [facility] Creatinine 1.0 0.6 - [...] CDT Jonathan Broussard MD LAB - CHEMISTRY ORDERABL ES Final Result Performing Organization Address [facility]/State/ZIP Co de Phone Number [facility] [address] [place] [address], [facility] [phone] from Last 3 Months or Most Recently Relevant to Health Maintenance Insurance MEDICARE [facility] Advance Directives * Full Code (Latest Code Status on File) Date Activated Date Inactivated Comments 09/16/2020 2:19 PM 09/19/2020 11:55 AM Care Teams Chainer Relationship Specialty Start Date End Date Mesfin Cortes MD [address] [place] [address] [address] [place] [address] PCP - General 06/08/22
--- OUTSIDE RECORDS SUMMARY | 2025-04-19 12:51 | XMS_ITS | Clinical Summary ---
Author Organization [facility] Address [facility] [place] [address] Care Team Providers Care Diesel Instructor Name Role Phone Mesfin Cortes MD Primary Care Provider [phone] Allergies Active Allergy Reactions Criticality Noted Date [...] on file Legal Sex Male 8:38 AM SOCIAL WORK MSW Gender Identity Not on file Sexual Orientation Not on file Last Filed Vital Signs Vital Sign Reading Time Taken Comments Blood Pressure 154/90 08/06/2023 11:00 AM SOCIAL WORK MSW Pulse 66 08/06/2023 10:30 AM SOCIAL WORK MSW Temperature 36.7 C (98.1 F) 08/06/2023 11:00 AM SOCIAL WORK MSW Respiratory Rate 16 08/06/2023 11:0 0 AM SOCIAL WORK MSW Oxygen Saturation 97% 08/06/2023 11: 00 AM SOCIAL WORK MSW Inhaled Oxygen Concentration - - Weight 88.8 kg (195 lb 12.3 oz) 08/06/2023 8:21 AM SOCIAL WORK MSW Height 182.9 cm (6') 08/06/2023 8:21 AM SOCIAL WORK MSW Body Mass Index 26.55 08/06/2023 8:21 AM SOCIAL WORK MSW Plan of Treatment Health Maintenance Due Date [...] this topic Insurance MEDICARE MEDICAID Care Teams Diesel Instructor Relationship Specialty Start Date End Date Mesfin Cortes MD [address] [place] [id number] PCP - General FAMILY PRACTICE 08/06/23
--- OUTSIDE RECORDS SUMMARY | 2025-04-19 12:51 | XMS_ITS | Clinical Summary ---
Author Organization [facility] Address [address] [place] [address] Phone Care Team Providers Care Patient Navigator Name Role Phone Mesfin Cortes MD Primary Care Provider [phone] Philippe Sunshine MD Unavailable Allergies Active Allergy [...] as needed. 07/30/2024 Active ergocalciferol (VITAMIN D) 40426 UNIT Capsule take 1 capsule by mouth [...] PSA 0.31 0.00 - 4.00 ng/mL [facility] VICE PRESIDENT [facility] Comment: Brandy Paramagnetic Particle Chemiluminescent Immunoassay Method. Standardized against the WHO standard. 09/08/2024 8:27 AM CDT Mesfin Cortes MD CHEMISTRY ORDERABLES Final Resul t CANCER VICE PRESIDENT [facility] [address] [place] [address], from Last 3 Months or Most Recently Relevant to Health Maintenance Insurance MEDICAID [facility] [employer] MEDICARE MEDICAID [place] Care Teams Patient Navigator Relationship Specialty Start Date End Date Mesfin Cortes MD [address] [place] [phone] PCP - General Family Medicine 08/14/23 Philippe Sunshine MD [address] [place] [id number] Consulting Physician Oncology 02/21/24
== END 2025-04-19 11:15 | disposition home or self-care (01) ==
LOC: ANHLAB 11:15
PROVIDERS: PCP Emergency Medicine; Visit Provider Internal Medicine Gastroenterology
DX: E83.19 Other disorders of iron metabolism (principal)
CPT/HCPCS: 81256

== ENCOUNTER 2025-06-08 08:46 | Outpatient (CLI) | payer MEDICARE, MEDICAID, SELFPAY ==
--- NOTE | ~2025-06-08 | XR_ITS ---
EXAMINATION: XR foot RT min 3V, 06/08/2025 9:15 SUPPLY CHAIN PROGRAM MANAGER HISTORY: LT FOOT SWOLLEN, TENDER, RED COMPARISON: No comparisons available. Findings: No acute fracture or malalignment. No significant degenerative changes. Soft tissues unremarkable. Impression: No acute fracture or malalignment. Reviewed, dictated and finalized at location P. LY CHAIN PROGRAM MANAGER Impression: No acute fracture or malalignment.
--- OUTSIDE RECORDS SUMMARY | 2025-06-08 09:42 | XMS_ITS | Clinical Summary ---
Author Organization [facility] Address [address] [place] [address] Phone Care Team Providers Care Broadloom Weaver Name Role Phone Mesfin Cortes MD Primary Care Provider Philippe Sunshine MD Unavailable Allergies Active Allergy [...] as needed. 07/30/2024 Active ergocalciferol (VITAMIN D) 44000 UNIT Capsule take 1 capsule by mouth [...] 8:26 AM CDT Respiratory Rate 20 12/08/2024 8:2 6 AM CDT Oxygen Saturation 95% 12/08/2024 8:2 [...] Discussion Completed 09/08/2024 Human Papillomavirus (HPV) Immunization (No Doses Required) Completed Meningococcal Immunization (ACWY) Aged Out No longer [...] PSA 0.31 0.00 - 4.00 ng/mL [facility]ER [facility] Comment: Brandy Paramagnetic Particle Chemiluminescent Immunoassay Method. Standardized against the WHO standard. 09/08/2024 8:27 AM CDT Mesfin Cortes MD CHEMISTRY ORDERABLES Final Resul t [facility]CER [facility]ER [facility] [address] [place] [address], from Last 3 Months or Most Recently Relevant to Health Maintenance Insurance MEDICAID [facility] [employer] MEDICARE MEDICAID [place] Care Teams Broadloom Weaver Relationship Specialty Start Date End Date Mefsin Cortes MD [address] [place] [phone] PCP - General Family Medicine 08/14/23 Philippe Sunshine MD [address] [place] [id number] Consulting Physician Oncology 02/21/24
[2025-06-08 10:30] LABS: Alanine Aminotransferase 35 U/L (6-50); Albumin Level 4.1 g/dL (3.5-5.1); Alkaline Phosphatase 146 U/L (38-126); Aspartate Amino Transferase 53 U/L (17-59); Bilirubin,Total 1.8 mg/dL (0.2-1.3); Blood Urea Nitrogen 12 mg/dL (9-20); Calcium 9.1 mg/dL (8.4-10.2); Chloride 92 mmol/L (98-107); Cholesterol 114 mg/dL (0-200); Estimated Glomerular Filt Rate > 60; Glucose 100 mg/dL (65-110); HDL Direct 35 mg/dL; Potassium 3.6 mmol/L (3.4-5.0); Sodium 140 mmol/L (137-145); Total Protein 7.5 g/dL (6.3-8.2); Triglycerides 131 mg/dL (<150); Uric Acid 9.9 mg/dL (3.5-8.5)
[2025-06-08 10:53] LABS: Anion Gap 14 mmol/L (4-12); Carbon Dioxide 34 mmol/L (22-30)
== END 2025-06-08 08:47 | disposition home or self-care (01) ==
PROVIDERS: PCP Emergency Medicine; Visit Provider Emergency Medicine
DX: M79.671 Pain in right foot (principal); I10 Essential (primary) hypertension; E78.3 Hyperchylomicronemia; F10.180 Alcohol abuse with alcohol-induced anxiety disorder; Z87.891 Personal history of nicotine dependence
CPT/HCPCS: 36415; 73630; 80053; 80061; 84550